=== PATIENT | female | born 1960 | race Caucasian/White ===

== ENCOUNTER 2017-10-29 11:44 | Emergency (ER) | payer OTHER ==
[2017-10-29 12:14] VITALS: BMI 21.9
--- NOTE | 2017-10-29 12:42 | PDOC ---
History of Present Illness - General Chief Complaint: PICC Line Insertion Stated Complaint: FEMORAL ASSESS Time Seen by Provider: 10/29/17 12:09 History Source: EMS, [facility], Primary Care Provider Exam Limitations: Clinical Condition - History of Present Illness Initial Comments: 10/29/17 13:01 57-year-old female with history of generalized seizure disorder, asthma, hypertension, dysphasia, anoxic encephalopathy, brought in from [facility] for placement of a peripheral dialysis catheter at the behest of the vegetable specker. Patient was transferred to [facility] by mistake and does not require emergent dialysis. I spoke with the medical donation professional at [facility] who advised me to discharge the patient upon completion of the medical screening exam where she will be rerouted to [facility] for her care. REVIEW OF SYSTEMS Unable to obtain due to patient's medical condition EXAMINATION CONSTITUTIONAL: Awake and alert, in no distress HEAD: Normocephalic; atraumatic EYES: PERRL; EOM intact ENMT: + Poor dentition NECK: Tracheostomy in place CARD: Normal S1, S2; no murmurs, rubs, or gallops RESP: Normal chest excursion with respiration; breath sounds clear and equal bilaterally; no wheezes, rhonchi, or rales ABD: Soft, non-distended; non-tender; no palpable organomegaly, no palpable hernias NEURO: Awake and alert, follows commands, moving all extremity symmetrically Past History - Past Medical History Anemia: Yes (refractory anemia) Asthma: Yes COPD: Yes GI Disorders: Yes (peg tube) Disorders: Yes (Htn chronic kid dx,renal osteodystrophy) HTN: Yes Psychiatric Problems: Yes (anxiety) Seizures: Yes (epilepsy,essential tremor) Other medical history: nicotine dependence, vit D deficiency - Surgical History GI Surgery: Yes (peg tube) - Suicide/Smoking/Psychosocial Hx Smoking History: Former smoker Have you smoked in the past 12 months: No Information on smoking cessation initiated: No Hx Alcohol Use: No Drug/Substance Use Hx: No *Physical Exam - Vital Signs Last Vital Signs Temp Pulse Resp BP Pulse Ox 97.8 F 85 20 162/83 100 10/29/17 12:08 10/29/17 12:08 10/29/17 12:08 10/29/17 12:08 10/29/17 12:17 *DC/Admit/Observation/Transfer Diagnosis at time of Disposition: Evaluation by medical service required - Discharge Dispostion Disposition: HOME Condition at time of disposition: Stable - Referrals Referrals: Garcia Edmonds MD [Primary Care Provider] - - Patient Instructions Additional Instructions: Follow-up at [facility] for further evaluation and treatment. Return immediately for worsening symptoms. - Post Discharge Activity
[2017-10-29 13:35] VITALS: BP 145/74; PULSE 84; TEMP 98.1
== END 2017-10-29 13:35 ==
LOC: JER 11:44
DX: Z04.8 Encounter for examination and observation for other specified reasons (principal); I10 Essential (primary) hypertension; J45.909 Unspecified asthma, uncomplicated; G40.909 Epilepsy, unspecified, not intractable, without status epilepticus; G93.1 Anoxic brain damage, not elsewhere classified
CPT/HCPCS: 99282-25

== ENCOUNTER 2018-06-23 12:56 | Inpatient (IN) | payer OTHER ==
[2018-06-23 13:14] VITALS: BMI 21.5
[2018-06-23] MEDS ORDERED: ALBUTEROL SO4 2.5/IPRATROPIUM 0.5 INH SOL 3 ML VIAL.NEB. NEB ONE ×2 (13:24→16:13)
--- NOTE | 2018-06-23 13:31 | PDOC ---
History of Present Illness - General Chief Complaint: Dialysis Shunt Problem Stated Complaint: BLOCKED SHUNT Time Seen by Provider: 06/23/18 13:05 History Source: Patient Exam Limitations: Clinical Condition - History of Present Illness Initial Comments: 06/23/18 13:28 58-year-old female with history of generalized seizure disorder, copd, hypertension, CAD, ESRD on HD M, W, F brought in from [facility] for nonfunctioning AV graft on Left arm since Tuesday. Patient states that last HD was done on Tuesday. Denies chest pain, sob, palpitations, lightheadedness, nausea, vomiting, swelling in legs. Reports she has tracheostomy from 2017. Denies fever and chills. Rod Bending Machine Operator: Dr Barton. States fistula made by [facility] access Bx Former smoker REVIEW OF SYSTEMS Unable to obtain due to patient's medical condition 06/23/18 13:32 06/23/18 13:39 Past History - Past Medical History Allergies/Adverse Reactions: Allergies Allergy/AdvReac Type Severity Reaction Status Date / Time codeine Allergy Verified 06/23/18 13:12 diphenhydramine Allergy Verified 06/23/18 13:12 [From Benadryl] heparin Allergy Verified 06/23/18 13:12 Anemia: Yes (refractory anemia) Asthma: Yes COPD: Yes GI Disorders: Yes (peg tube) Disorders: Yes (Htn chronic kid dx,renal osteodystrophy) HTN: Yes Psychiatric Problems: Yes (anxiety) Seizures: Yes (epilepsy,essential tremor) - Surgical History GI Surgery: Yes (peg tube) - Suicide/Smoking/Psychosocial Hx Smoking History: Former smoker Have you smoked in the past 12 months: No Information on smoking cessation initiated: No Hx Alcohol Use: No Drug/Substance Use Hx: No Review of Systems - Review of Systems Constitutional: No: Chills, Fever HEENTM: No: Blurred Vision Respiratory: No: Cough, Shortness of Breath, Stridor, Wheezing Cardiac (ROS): No: Chest Pain, Irregular Heart Rate, Lightheadedness, Palpitations ABD/GI: No: Abdominal Distended, Constipated, Diarrhea, Nausea, Vomiting : No: Burning, Dysuria, Frequency, Hematuria Neurological: No: Headache *Physical Exam - Vital Signs Last Vital Signs Temp Pulse Resp BP Pulse Ox 98.5 F 74 18 142/72 97 06/23/18 13:12 06/23/18 13:12 06/23/18 13:12 06/23/18 13:12 06/23/18 13:12 - Physical Exam General Appearance: Yes: Appropriately Dressed Neck: positive: Other (tracheostomy present, tracheal collar, on oxygen ) Cardiovascular: positive: Regular Rhythm, Regular Rate, S1, S2. negative: Murmur Gastrointestinal/Abdominal: positive: Normal Bowel Sounds, Soft, Other ( dressing present, PEG tube removed about 45 days ago). negative: Tender, Distended, Guarding, Rebound Musculoskeletal: positive: Other (muscle waisting ) Extremity: positive: Other (AV graft present on left arm. No shunt or thrill present. ). negative: Tender Integumentary: positive: Dry Neurologic: positive: Fully Oriented, Alert ED Treatment Course - LABORATORY CBC & Chemistry Diagram: 06/23/18 15:15 - RADIOLOGY Radiology Studies Ordered: Category Date Time Status CXRPORT [CHEST X-RAY PORTABLE*] [RAD] Routine Radiology 06/23/18 13:23 Ordered Medical Decision Making - Medical Decision Making 06/23/18 13:38 58-year-old female with history of generalized seizure disorder, copd, hypertension, CAD, ESRD on HD M, W, F brought in from [facility] for nonfunctioning AV graft on Left arm since Tuesday. Patient states that last HD was done on Tuesday. Denies chest pain, sob, palpitations, lightheadedness, nausea, vomiting, swelling in legs. Reports she has tracheostomy from 2017. Denies fever and chills. Rod Bending Machine Operator: Dr Barton. States fistula made by wallis[facility] access Bx we will get cbc, cmp, ekg, cxr, vascular surgery consult, nephrology consult, pt /inr. One time duoneb for mild wheezing on exam. Pt has h/o copd. Former smoker 06/23/18 13:51 Patient was initially sent to [facility] in morning but they don't accommodate patient on tracheostomy so pt was sent back to [facility]. Now patient is sent from [facility] to [facility]. [place] access [phone].. ekg reviewed: nsr. discussed with Dr antoine. we can admit patient and send dr jung consult. Dr. Jung informed about the patient. 06/23/18 15:19 labs pending inr 1.04. CXR: no fluid overload. Ultrasound or arm done. Report pending 06/23/18 16:25 patient will get procedure in morning for occluded AV graft. Make her NPO after midnight. *DC/Admit/Observation/Transfer Diagnosis at time of Disposition: AV fistula occlusion Qualifiers: Encounter type: initial encounter Qualified Code(s): T82.898A - Other specified complication of vascular prosthetic devices, implants and grafts, initial encounter - Discharge Dispostion Decision to Admit order: Yes - Referrals - Patient Instructions - Post Discharge Activity
--- NOTE | 2018-06-23 14:01 | PDOC ---
Attending Attestation - Resident Resident Name: AshlynFloyd - ED Attending Attestation I have performed the following: I have examined & evaluated the patient, The case was reviewed & discussed with the resident, I agree w/resident's findings & plan, Exceptions are as noted - HPI HPI: 06/23/18 13:58 58-year-old female with generalized seizure disorder, copd, hypertension, CAD, ESRD on HD M, W, F presents with clotted left upper shank fishhook. Patient last had dialysis 4 days ago. 2 days ago, they attempted to dialyze patient but the left upper extremity fistula was clotted. He sent the patient to the ER today to repair it. Patient has no complaints at this time. - Physicial Exam PE: 06/23/18 14:03 GENERAL: Awake, alert, and fully oriented, in no acute distress HEAD: No signs of trauma EYES: EOMI, sclera anicteric, conjunctiva clear ENT: Auricles normal inspection, hearing grossly normal, nares patentl. Trach in place. NECK: Normal ROM, supple LUNGS: Breath sounds equal, clear to auscultation bilaterally. No wheezes, and no crackles HEART: Regular rate and rhythm, normal S1 and S2, no murmurs, rubs or gallops EXTREMITIES: Normal range of motion, no edema. No clubbing or cyanosis. No cords, erythema, or tenderness LUE fistula with no palpable thrill. NEUROLOGICAL: Cranial nerves II through XII grossly intact. SKIN: Warm, Dry, normal turgor, no rashes or lesions noted. - Medical Decision Making 06/23/18 14:05 Vital Signs Temp Pulse Resp BP Pulse Ox 98.5 F 74 18 142/72 97 06/23/18 13:12 06/23/18 13:12 06/23/18 13:12 06/23/18 13:12 06/23/18 13:12 Clotted LUE fistula. Duplex of LUE. Consult vascular. Labs to evaluate for potential hyperkalemia given that she missed dialysis. Admit Heart Score/ECG Review #1 ECG reviewed & interpreted by me at: 14:00 06/23/18 14:06 NSR 69, no std/marcie, normal axis, normal intervals, QTC 458 msec
[2018-06-23 15:10] LABS: INR 1.04 (0.83-1.09); PROTHROMBIN TIME (PATIENT) 11.8 SEC (9.7-13.0)
[2018-06-23 15:12] LABS: ACTIVATED PTT 24.7 SECONDS (25.2-36.5)
[2018-06-23 15:39] LABS: ALK PHOS 167 U/L (45-117); ANION GAP 19 MMOL/L (8-16); BILIRUBIN,TOTAL 0.3 mg/dL (0.2-1.0); CALCIUM 9.2 mg/dL (8.5-10.1); CHLORIDE 92 mmol/L (98-107); CO2 22 mmol/L (21-32); CREATININE 6.9 mg/dL (0.55-1.02); GLUCOSE,RANDOM 88 mg/dL (74-106); MAGNESIUM 2.4 mg/dL (1.8-2.4); PHOSPHOROUS 5.2 mg/dL (2.5-4.9); POTASSIUM 4.5 mmol/L (3.5-5.1); SGOT/AST 12 U/L (15-37); SGPT/ALT 16 U/L (12-78); SODIUM 133 mmol/L (136-145); TOT PROT 6.2 g/dl (6.4-8.2)
[2018-06-23 15:42] LABS: BLOOD UREA NITROGEN 115 mg/dL (7-18)
[2018-06-23 15:43] LABS: INR 1.05 (0.83-1.09); PROTHROMBIN TIME (PATIENT) 11.9 SEC (9.7-13.0)
--- NOTE | 2018-06-23 18:08 | HP ---
Admitting History and Physical - Primary Care Physician PCP: Marleny Ortega - Admission History of Present Illness: 58-year-old female with history of generalized seizure disorder, copd, hypertension, CAD, ESRD on HD M, W, F , s/p trach collor brought in from [facility] for nonfunctioning AV graft on Left arm since Tuesday. Patient states that last HD was done on Tuesday. Denies chest pain, sob, palpitations, lightheadedness, nausea, vomiting, swelling in legs. Reports she has tracheostomy from 2017. Denies fever and chills. It Disaster Recovery Manager: Dr Barton. States fistula made by stateless access Bx avf declotting scheduled tomorrow. pt seen / examined . chart reviewed discussed with er resident npo after midnight Dialysis after procedure pt comfortable History Source: Patient, Medical Record - Smoking History Smoking history: Former smoker Have you smoked in the past 12 months: No - Alcohol/Substance Use Hx Alcohol Use: No Home Medications - Allergies Allergies/Adverse Reactions: Allergies Allergy/AdvReac Type Severity Reaction Status Date / Time codeine Allergy Verified 06/23/18 13:12 diphenhydramine Allergy Verified 06/23/18 13:12 [From Benadryl] heparin Allergy Verified 06/23/18 13:12 Review of Systems Findings/Remarks: see [place] Physical Examination Vital Signs: Vital Signs Temperature 98.5 F 06/23/18 13:12 Pulse Rate 74 06/23/18 13:12 Respiratory Rate 18 06/23/18 13:12 Blood Pressure 142/72 06/23/18 13:12 O2 Sat by Pulse Oximetry (%) 97 06/23/18 13:12 Constitutional: Yes: No Distress, Calm Eyes: Yes: Conjunctiva Clear Neck: Yes: Supple, Other (s/p trach cloolr) Cardiovascular: Yes: Regular Rate and Rhythm Respiratory: Yes: CTA Bilaterally Gastrointestinal: Yes: Soft Edema: No Neurological: Yes: Alert Psychiatric: Yes: Alert Labs: CBC, BMP 06/23/18 15:15 Imaging - Results Chest X-ray: Report Reviewed Problem List - Problems (1) Tracheostomy dependent Code(s): Z93.0 - TRACHEOSTOMY STATUS (2) Seizure disorder Code(s): G40.909 - EPILEPSY, UNSP, NOT INTRACTABLE, WITHOUT STATUS EPILEPTICUS (3) ESRD (end stage renal disease) on dialysis Code(s): N18.6 - END STAGE RENAL DISEASE; Z99.2 - DEPENDENCE ON RENAL DIALYSIS (4) AV fistula occlusion Code(s): T82.898A - OT COMPLICATION OF VASCULAR PROSTH DEV/GRFT, INIT Qualifiers: Encounter type: initial encounter Qualified Code(s): T82.898A - Other specified complication of vascular prosthetic devices, implants and grafts, initial encounter Assessment/Plan Npo after midnight meds reviewed will discuss with vascular medically stable for proposed procedure scd for dvt prophylaxis pt allergic to heparin will follow discussed with nursing staff also.
[2018-06-23 19:00] LABS: BASO % 0.5 % (0-2.0); EOS % 0.2 % (0-4.5); HEMOGLOBIN 13.8 GM/dL (10.7-15.3); LYMPH % 19.1 % (8-40); MCHC 33.6 g/dl (32.0-36.0); MEAN CELL VOLUME 92.1 fl (80-96); MEAN PLT VOLUME 7.5 fl (7.5-11.1); MONO % 6.4 % (3.8-10.2); NEUT % 73.8 % (42.8-82.8); PLATELET COUNT 267 K/MM3 (134-434); RBC 4.45 M/mm3 (3.60-5.2); RDW 16.5 % (11.6-15.6); WHITE BLOOD COUNT 4.6 K/mm3 (4.0-10.0)
--- NOTE | 2018-06-23 19:00 | PN ---
Progress Note (short form) - Note Progress Note: VAscular Surgery Pt seen and examined. Left avg is clotted. Will declot graft in am. Spoke to branden Bach - who will give consent for procedure. Pt can go for HD after procedure. Murali Paz DO
[2018-06-23] MEDS ORDERED: ACETYLCYSTEINE 20% 200MG/ML 30 ML VIAL *FOR ORAL / INH USE ONLY NEB SCH (20:00)
[2018-06-23] MEDS: ALBUTEROL SO4 0.083% IH SOL 2.5 MG/3 ML VIAL.NEB. NEB SCH (21:28)
[2018-06-23] MEDS: SILVER SULFADIAZINE 1% TOP CREAM 50 GM JAR TP SCH (22:08)
[2018-06-23] MEDS: BUDESONIDE/FORMETEROL FUMARATE 160/4.5 mcg INHALER IH SCH (22:08)
[2018-06-23] MEDS: levETIRAcetam 500 MG/5 ML INJECTION VIAL IVPB SCH (22:10)
[2018-06-23] MEDS: PHENYTOIN SODIUM 100 MG/2 ML VIAL IVPB SCH (22:10)
[2018-06-24] MEDS ORDERED: ACETYLCYSTEINE 20% 200MG/ML 4 ML VIAL *FOR ORAL / INH USE ONLY NEB SCH (00:37)
[2018-06-24] MEDS: ALBUTEROL SO4 0.083% IH SOL 2.5 MG/3 ML VIAL.NEB. NEB SCH ×3 (07:30→15:18)
[2018-06-24] MEDS ORDERED: SEVELAMER CARBONATE 2.4 GM POWDER PACKET PO SCH ×2 (08:00→12:00)
[2018-06-24] MEDS ORDERED: LIDOCAINE HCL 1%, 10 MG/ML (20ML VIAL) ONE (08:31)
[2018-06-24] MEDS ORDERED: ONDANSETRON 4 MG/2 ML VIAL IVPUSH PRN ×2 (08:34→10:41)
[2018-06-24] MEDS ORDERED: MIDAZOLAM HCL 2 MG/2 ML SINGLE DOSE VIAL ONE ×3 (08:45→09:40)
[2018-06-24] MEDS ORDERED: PROPOFOL 20 ML ONE ×2 (08:50)
[2018-06-24] MEDS ORDERED: ceFAZolin SODIUM 1 GM VIAL ONE (08:50)
--- NOTE | 2018-06-24 08:56 | CON.NEP ---
Consult Consult Specialty:: nephrology Referred by:: arash Reason for Consultation:: esrd with clotted avg - History of Present Illness Chief Complaint: nonfunctioning dialysis access History of Present Illness: esrd nh resident av access malfunction last hd on tuesday - Alcohol/Substance Use Hx Alcohol Use: No - Smoking History Smoking history: Former smoker Have you smoked in the past 12 months: No Home Medications - Allergies Allergies/Adverse Reactions: Allergies Allergy/AdvReac Type Severity Reaction Status Date / Time codeine Allergy Verified 06/23/18 13:12 diphenhydramine Allergy Verified 06/23/18 13:12 [From Benadryl] heparin Allergy Verified 06/23/18 13:12 Nephrology Consult - Height Height: 5 ft 2 in - Weight Weight: 118 lb - BMI Body Mass Index (BMI): 21.5 - Lab Results CBC,BMP: CBC, BMP 06/23/18 18:00 06/23/18 15:15 Anion Gap: Anion Gap Anion Gap 19 MMOL/L (8-16) H 06/23/18 15:15 - Physical Examination Vital Signs: Vital Signs Temperature 97.6 F 06/24/18 06:00 Pulse Rate 82 06/24/18 07:30 Respiratory Rate 20 06/24/18 06:00 Blood Pressure 140/67 06/24/18 06:00 O2 Sat by Pulse Oximetry (%) 98 06/24/18 07:30 Assessment/Plan esrd on hd tiw mwf admitted with avg clotting last hd on tuesday- clinically no sign of overload or uremia Plan- hd after declotting
[2018-06-24] MEDS ORDERED: SODIUM CHLORIDE 250 ML IV PRN ×2 (09:03→10:41)
[2018-06-24] MEDS ORDERED: hydrALAZINE HCL 50 MG TABLET (FP) PO SCH (10:00)
[2018-06-24] MEDS ORDERED: amLODIPine BESYLATE 10 MG TABLET (FP) PO SCH (10:00)
[2018-06-24] MEDS ORDERED: cloNIDine HCL 0.1 MG TABLET PO SCH (10:00)
--- NOTE | 2018-06-24 10:22 | OP ---
Operative Note - Note: Operative Date: 06/24/18 Pre-Operative Diagnosis: Clotted left avg Operation: venogram,suction thrombectomy, venoplasty left avg Post-Operative Diagnosis: Same as Pre-op Surgeon: Murali Paz Anesthesia: Fractional Estimated Blood Loss (mls): 50 Operative Report Dictated: Yes
[2018-06-24] MEDS: levETIRAcetam 500 MG/5 ML INJECTION VIAL IVPB SCH (10:45)
[2018-06-24] MEDS: PHENYTOIN SODIUM 100 MG/2 ML VIAL IVPB SCH (10:45)
[2018-06-24] MEDS: BUDESONIDE/FORMETEROL FUMARATE 160/4.5 mcg INHALER IH SCH (10:45)
[2018-06-24] MEDS: SILVER SULFADIAZINE 1% TOP CREAM 50 GM JAR TP SCH (10:45)
--- NOTE | 2018-06-24 11:22 | DS ---
Physical Examination Vital Signs: Vital Signs Temperature 98.3 F 06/24/18 10:40 Pulse Rate 76 06/24/18 10:40 Respiratory Rate 18 06/24/18 10:40 Blood Pressure 167/75 06/24/18 10:40 O2 Sat by Pulse Oximetry (%) 100 06/24/18 10:40 Constitutional: Yes: No Distress, Calm Cardiovascular: Yes: Regular Rate and Rhythm Respiratory: Yes: Diminished Gastrointestinal: Yes: Normal Bowel Sounds, Soft. No: Tenderness Edema: No Labs: CBC, BMP 06/23/18 18:00 06/23/18 15:15 Discharge Summary Reason For Visit: AV FISTULA OCCLUSION Current Active Problems AV fistula occlusion (Acute) ESRD (end stage renal disease) on dialysis (Acute) Seizure disorder (Acute) Tracheostomy dependent (Acute) Hospital Course: Admitted for AVF occlusion No volume overload Seen by Renal and Vascular Surgeon-- declotted today and was dialyzed stable for dc to NH Condition: Good - Instructions Disposition: [facility]
[2018-06-24] MEDS: ACETYLCYSTEINE 20% 200MG/ML 4 ML VIAL *FOR ORAL / INH USE ONLY NEB SCH ×2 (11:27→15:17)
[2018-06-24 15:25] VITALS: TEMP 98.4
[2018-06-24 16:12] VITALS: BP 118/70; PULSE 91
[2018-06-24] MEDS ORDERED: PT OWN MED DRAWER 7, Y5N ONE (18:38)
[2018-06-24] MEDS ORDERED: BUDESONIDE/FORMETEROL FUMARATE 160/4.5 mcg INHALER IH SCH (22:00)
[2018-06-24] MEDS ORDERED: PHENYTOIN NA EXTENDED 100 MG CAPSULE (FP) PO SCH (22:00)
[2018-06-24] MEDS ORDERED: PHENYTOIN SODIUM 100 MG/2 ML VIAL IVPB SCH (22:00)
[2018-06-24] MEDS ORDERED: levETIRAcetam 250 MG TABLET (FP) PO SCH (22:00)
[2018-06-24] MEDS ORDERED: levETIRAcetam 500 MG/5 ML INJECTION VIAL IVPB SCH (22:00)
[2018-06-24] MEDS ORDERED: SILVER SULFADIAZINE 1% TOP CREAM 50 GM JAR TP SCH (22:00)
[2018-06-25 08:06] LABS: HBsAG SCREEN Negative (Negative)
[2018-06-25] MEDS ORDERED: amLODIPine BESYLATE 10 MG TABLET (FP) PO SCH (10:00)
[2018-06-25] MEDS ORDERED: cloNIDine HCL 0.1 MG TABLET PO SCH (10:00)
[2018-06-25] MEDS ORDERED: hydrALAZINE HCL 50 MG TABLET (FP) PO SCH (10:00)
--- NOTE | 2018-06-26 11:16 | EKG ---
Test Reason : Blood Pressure : / mmHG Vent. Rate : 069 BPM Atrial Rate : 069 BPM P-R Int : 180 ms QRS Dur : 092 ms QT Int : 428 ms P-R-T Axes : 051 068 046 degrees QTc Int : 458 ms NORMAL SINUS RHYTHM POSSIBLE LEFT ATRIAL ENLARGEMENT BORDERLINE ECG NO PREVIOUS ECGS AVAILABLE Confirmed by MEL ROCHA, NAYAN ([id number]) on 06/26/2018 11:15:51 AM Referred By: Confirmed By:NAYAN LEAL MD
== END 2018-06-24 18:30 | DRG 252 ==
LOC: JER 12:56 → JERBED 16:00 → J5S 17:21
PROVIDERS: ADMIT Internal Medicine; ATTEND Internal Medicine
PROC: B50NYZZ Plain Radiography of Left Upper Extremity Veins using Other Contrast (ICD-10-PCS; 2018-06-24)
PROC: 5A1D70Z Performance of Urinary Filtration, Intermittent, Less than 6 Hours Per Day (ICD-10-PCS; 2018-06-24)
PROC: 05CA3ZZ Extirpation of Matter from Left Brachial Vein, Percutaneous Approach (ICD-10-PCS; principal; 2018-06-24 09:10)
DX: T82.898A Other specified complication of vascular prosthetic devices, implants and grafts, initial encounter (principal); N18.6 End stage renal disease; I12.0 Hypertensive chronic kidney disease with stage 5 chronic kidney disease or end stage renal disease; Z93.0 Tracheostomy status; Y83.9 Surgical procedure, unspecified as the cause of abnormal reaction of the patient, or of later complication, without mention of misadventure at the time of the procedure; Z99.2 Dependence on renal dialysis; I25.10 Atherosclerotic heart disease of native coronary artery without angina pectoris; G40.909 Epilepsy, unspecified, not intractable, without status epilepticus
CPT/HCPCS: 36415; 71045-TC-FY; 76000-TC-FY; 80053; 83735; 84100; 85025; 85610; 85730; 86706; 87340; 93005; 93010; 93971; 94640; 94760; 99281-25; J7620

== ENCOUNTER 2018-07-05 18:50 | Observation (INO) | payer OTHER ==
[2018-07-05 21:10] LABS: BASO % 0.8 % (0-2.0); HEMATOCRIT 37.7 % (32.4-45.2); HEMOGLOBIN 12.6 GM/dL (10.7-15.3); LYMPH % 25.3 % (8-40); MCHC 33.4 g/dl (32.0-36.0); MEAN CELL VOLUME 92.7 fl (80-96); MEAN PLT VOLUME 6.8 fl (7.5-11.1); MONO % 9.8 % (3.8-10.2); NEUT % 62.1 % (42.8-82.8); PLATELET COUNT 267 K/MM3 (134-434); RBC 4.07 M/mm3 (3.60-5.2); RDW 16.5 % (11.6-15.6)
[2018-07-05 21:23] LABS: INR 0.91 (0.83-1.09); PROTHROMBIN TIME (PATIENT) 10.3 SEC (9.7-13.0)
[2018-07-05 21:26] LABS: ACTIVATED PTT 24.3 SECONDS (25.2-36.5)
--- NOTE | 2018-07-05 22:02 | PDOC ---
Attending Attestation - Resident Resident Name: Greyson Jordan - ED Attending Attestation I have performed the following: I have examined & evaluated the patient, The case was reviewed & discussed with the resident, I agree w/resident's findings & plan, Exceptions are as noted - HPI HPI: 07/05/18 23:56 The patient is a 58 year old female, with a significant past medical history of generalized seizure disorder, copd, hypertension, CAD, ESRD (on HD M, W, F), who presents to the emergency department with occluded dialysis fistula. Patient did not receive dialysis today due to the occluded fistula. The patient also has a tracheotomy which was scheduled to be changed today but, did not occur because she is in the ED. While in the ED, she denies symptoms. She denies recent fevers, chills, headache or dizziness. She denies recent nausea, vomit, diarrhea or constipation. She denies recent dysuria, frequency, urgency or hematuria. She denies recent chest pain or shortness of breath. Allergies: Codeine, diphenhydramine, heparin Past surgical history: Fistula made by guatemalan access Bx. Tracheotomy 2017. Social history: Former smoker. Fpga Engineer: Dr Barton. - Physicial Exam PE: 07/05/18 23:57 agree with resident exam - Medical Decision Making 07/05/18 23:57 58yo F with MMP including ESRD presents to the ED with occluded LUE fistula. Pt asymptomatic. Potassium wnl. WIll admit for fistula repair. 07/06/18 00:25 CAse discussed with ALBERT Youngblood, pt accepted for admission Case discussed in detail with admitting physician including history, physical exam and ancillary studies. Admitting physician has assumed care for the patient, will follow all pending diagnostics and will complete the evaluation and treatment. Discharge Disposition - Diagnosis AV fistula occlusion - Discharge Dispostion Condition at time of disposition: Stable Last Admission D/C Date: 06/24/18 Decision to Admit order: Yes - Referrals Referrals: ON STAFF,NOT [Primary Care Provider] - - Patient Instructions - Post Discharge Activity Heart Score/ECG Review #1 07/05/18 22:01 Twelve-lead EKG was performed and reviewed by me. Normal sinus rhythm, rate 80. Normal axis and intervals. No ST elevations. No peak T waves.
[2018-07-05 23:53] LABS: ALBUMIN 2.8 g/dl (3.4-5.0); ALK PHOS 142 U/L (45-117); ANION GAP 8 MMOL/L (8-16); BILIRUBIN,TOTAL 0.3 mg/dL (0.2-1); BLOOD UREA NITROGEN 55 mg/dL (7-18); CALCIUM 9.2 mg/dL (8.5-10.1); CHLORIDE 98 mmol/L (98-107); CO2 26 mmol/L (21-32); CREATININE 6.5 mg/dL (0.55-1.3); GLUCOSE,RANDOM 87 mg/dL (74-106); POTASSIUM 4.7 mmol/L (3.5-5.1); SGOT/AST 13 U/L (15-37); SGPT/ALT 22 U/L (13-61); SODIUM 132 mmol/L (136-145); TOT PROT 5.8 g/dl (6.4-8.2)
--- NOTE | 2018-07-06 00:03 | PDOC ---
History of Present Illness - General Chief Complaint: Dialysis Shunt Problem Stated Complaint: Dialysis Shunt Problem Time Seen by Provider: 07/05/18 18:54 History Source: Patient, Old Records Exam Limitations: No Limitations - History of Present Illness Initial Comments: 58 y/o female presenting to [facility] ER from [facility] complaining of likely occluded dialysis fistula. Site made by [place] Access Bx; unable to evaluate site as the pts trached. Last dialysis run on Tuesday (07/03/2018). Pt is s/p venogram, suction thrombectomy, venoplasty left avg on 06/24/[address] Paz. Pt unable to recall last trach revision. Was scheduled to have it performed today after dialysis. PCP: Marleny Ortega Gelatin Dynamite Packing Operator: Dr Barton. Vascular Surgeon last admission: Dr. Paz Medical Hx: - Generalized seizure disorder - COPD - Hypertension - CAD - ESRD on HD M, W, F brought in from [facility] Surgical Hx: - Tracheostomy 2016 Past History - Past Medical History Allergies/Adverse Reactions: Allergies Allergy/AdvReac Type Severity Reaction Status Date / Time codeine Allergy Verified 07/05/18 19:14 diphenhydramine Allergy Verified 07/05/18 19:14 [From Benadryl] heparin Allergy Verified 07/05/18 19:14 Home Medications: Ambulatory Orders Acetylcysteine Po/INH 20% [Mucomyst 20 Oral / INH Use Only*] 200 mg NEB RQID vial 06/24/18 Albuterol 0.083% Nebulizer Liza [Ventolin 0.083% Nebulizer Soln -] 1 amp NEB RQID amp 06/24/18 Amlodipine Besylate [Norvasc -] 10 mg PO DAILY tablet 06/24/18 Budesonide/Formeterol Fumarate [SYMBICORT 160/4.5mcg -] 2 puff IH BID inhaler 06/24/18 Phenytoin Na Extended [Dilantin -] 200 mg PO BID capsule 06/24/18 Sevelamer Carbonate [Renvela Powder Packet -] 2.4 gm PO TIDCM powd.pack Silver Sulfadiazine 1% Top Cr [Silvadene -] 1 applic TP BID jar 06/24/18 cloNIDine HCL [Catapres -] 0.3 mg PO DAILY tablet 06/24/18 hydrALAZINE HCL [Apresoline -] 50 mg PO DAILY tablet 06/24/18 levETIRAcetam [Keppra -] 250 mg PO BID tablet 06/24/18 Acetaminophen 325 mg PO PRN 07/05/18 Docusate Sodium [Colace] 100 mg PO DAILY 07/05/18 Anemia: Yes (refractory anemia) Asthma: Yes COPD: Yes GI Disorders: Yes (peg tube) Disorders: Yes (Htn chronic kid dx,renal osteodystrophy) HTN: Yes Psychiatric Problems: Yes (anxiety) Seizures: Yes (epilepsy,essential tremor) - Surgical History GI Surgery: Yes (peg tube) - Suicide/Smoking/Psychosocial Hx Smoking History: Never smoked Have you smoked in the past 12 months: No 'Breaking Loose' booklet given: 06/23/18 Hx Alcohol Use: No Drug/Substance Use Hx: No Review of Systems - Review of Systems Able to Perform ROS?: Yes Comments:: In addition to that documented in the HPI above, the additional ROS was obtained : Constitutional: Denies fevers or chills Eyes: Denies vision changes ENMT: Denies sore throat CV: Denies chest pain Resp: Denies SOB GI: Denies vomiting or diarrhea *Physical Exam - Vital Signs Last Vital Signs Temp Pulse Resp BP Pulse Ox 98.8 F 78 18 144/65 100 07/05/18 19:13 07/05/18 19:13 07/05/18 19:13 07/05/18 19:13 07/05/18 19:58 - Physical Exam Comments: Constitutional: Well-developed, well-nourished female in no acute distress. Found semi-fowlers in hospital bed with . Alert and oriented x4. Answered all questions appropriately and completely. Speech was non-labored, non-pressured. HEENT: Normocephalic. No obvious external signs of trauma. Hearing grossly normal. No nasal discharge. Neck is supple, trachea is midline. Trach collar in place and connected to wall oxygen source. Cardiovascular: Regular rate and regular rhythm. No murmur, rubs, clicks, or gallops. Peripheral pulses: Radial pulses full. Respiratory: Breathing unlabored. Equal chest rise and fall. Clear to auscultation bilaterally. No stridor, no wheezing, no rhonchi. Gastrointestinal: abdomen is soft, non-tender, non-distended. Neuro: Alert and oriented. Moving all four extremities spontaneously. Skin: Warm, dry, and intact. Dialysis fistula on upper left extremity. Psych: Affect: appropriate. Mood: normal. ED Treatment Course - LABORATORY CBC & Chemistry Diagram: 07/07/18 06:35 07/07/18 06:35 - ADDITIONAL ORDERS Additional order review: Laboratory Results 07/05/18 07/05/18 07/05/18 23:09 21:07 21:07 PT with INR 10.30 INR 0.91 PTT (Actin FS) 24.3 L Sodium 132 L Cancelled Potassium 4.7 Cancelled Chloride 98 Cancelled Carbon Dioxide 26 Cancelled Anion Gap 8 Cancelled BUN 55 H Cancelled Creatinine 6.5 H Cancelled Creat Clearance w eGFR 6.52 Cancelled Random Glucose 87 Cancelled Calcium 9.2 Cancelled Total Bilirubin 0.3 Cancelled AST 13 L Cancelled ALT 22 Cancelled Alkaline Phosphatase 142 H Cancelled Total Protein 5.8 L Cancelled Albumin 2.8 L Cancelled 07/05/18 21:07 RBC 4.07 MCV 92.7 MCHC 33.4 RDW 16.5 H MPV 6.8 L Neutrophils % 62.1 Lymphocytes % 25.3 D Monocytes % 9.8 Eosinophils % 2.0 D Basophils % 0.8 - RADIOLOGY Radiology Studies Ordered: Category Date Time Status CHEST X-RAY PORTABLE* [RAD] Stat Radiology 07/05/18 20:30 Taken DUPLEX VASCUL US-1 ARM [US] Stat Ultrasound 07/05/18 20:27 Completed Medical Decision Making - Medical Decision Making *Reviewed vital signs, nursing notes, and prior visit documentation (if available). 58 y/o female with likely occluded dialysis fistula without symptomatic complaint. Here for similar 2 weeks ago. Afebrile. Vitals unremarkable. Will order pre-op labs and u/s to evaluate fistula. 21:44 Chemistry hemolyzed. Re-ordered. CBC unremarkable for anemia or leukocytosis. CMP unremarkable for electrolyte derangement. LFTs not elevated. PT/INR within normal range. PTT low to 24.3 U/S revealed occluded AV fistula in the left arm. Attending admitted pt to hospitalist service. Vascular surgeon consult entered into [employer]. *DC/Admit/Observation/Transfer Diagnosis at time of Disposition: AV fistula occlusion Qualifiers: Encounter type: initial encounter Qualified Code(s): T82.898A - Other specified complication of vascular prosthetic devices, implants and grafts, initial encounter - Discharge Dispostion Condition at time of disposition: Stable Decision to Admit order: Yes - Referrals - Patient Instructions - Post Discharge Activity
--- NOTE | 2018-07-06 01:16 | HP ---
CHIEF COMPLAINT: AV fistula Malfunction PCP: Seaming Machine Operator: Dr Barton. HISTORY OF PRESENT ILLNESS: This is a 58 y/o woman from [facility] with a PMHx of Seizure Disorder (on Dilantin, Keppra), ESRD (HD- MWF), HTN, CAD, COPD, Who presents to the ED with an occluded dialysis fistula. Patient did not receive dialysis today due to the occluded fistula. The patient also has a tracheotomy which was scheduled to be changed today but, did not occur because she is in the ED. While in the ED, she denies symptoms. Patient denies recent fevers, chills, headache or dizziness. Patient denies recent chest pain or shortness of breath. Patient denies recent nausea, vomit, diarrhea or constipation. Patient denies recent dysuria, frequency, urgency or hematuria. ER course was notable for: (1) BUN 55 (2) Cr 6.5 (3) Recent Travel: None PAST MEDICAL HISTORY: See HPI PAST SURGICAL HISTORY: AV Fistula (made by [employer]) Tracheotomy 2016 Social History: Smoking: Former Alcohol: None Drugs: None Resides at [facility] Family History: Non-contributory Allergies codeine Allergy (Verified 07/05/18 19:14) diphenhydramine [From Benadryl] Allergy (Verified 07/05/18 19:14) heparin Allergy (Verified 07/05/18 19:14) HOME MEDICATIONS: Home Medications Medication Instructions Recorded Acetylcysteine Po/INH 20% 200 mg NEB RQID vial 06/24/18 [Mucomyst 20 Oral / INH Use Only*] Albuterol 0.083% Nebulizer Liza 1 amp NEB RQID amp 06/24/18 [Ventolin 0.083% Nebulizer Soln -] Amlodipine Besylate [Norvasc -] 10 mg PO DAILY tablet 06/24/18 Budesonide/Formeterol Fumarate 2 puff IH BID inhaler 06/24/18 [SYMBICORT 160/4.5mcg -] Phenytoin Na Extended [Dilantin -] 200 mg PO BID capsule 06/24/18 Sevelamer Carbonate [Renvela 2.4 gm PO TIDCM powd.pack 06/24/18 Powder Packet -] Silver Sulfadiazine 1% Top Cr 1 applic TP BID jar 06/24/18 [Silvadene -] cloNIDine HCL [Catapres -] 0.3 mg PO DAILY tablet 06/24/18 hydrALAZINE HCL [Apresoline -] 50 mg PO DAILY tablet 06/24/18 levETIRAcetam [Keppra -] 250 mg PO BID tablet 06/24/18 Acetaminophen 325 mg PO PRN 07/05/18 Docusate Sodium [Colace] 100 mg PO DAILY 07/05/18 REVIEW OF SYSTEMS CONSTITUTIONAL: Absent: fever, chills, diaphoresis, generalized weakness, malaise, loss of appetite, weight change HEENT: Absent: rhinorrhea, nasal congestion, throat pain, throat swelling, difficulty swallowing, mouth swelling, ear pain, eye pain, visual changes CARDIOVASCULAR: Absent: chest pain, syncope, palpitations, irregular heart rate, lightheadedness , peripheral edema RESPIRATORY: Absent: cough, shortness of breath, dyspnea with exertion, orthopnea, wheezing, stridor, hemoptysis GASTROINTESTINAL: Absent: abdominal pain, abdominal distension, nausea, vomiting, diarrhea, constipation, melena, hematochezia GENITOURINARY: Absent: dysuria, frequency, urgency, hesitancy, hematuria, flank pain, genital pain MUSCULOSKELETAL: Absent: myalgia, arthralgia, joint swelling, back pain, neck pain SKIN: Absent: rash, itching, pallor HEMATOLOGIC/IMMUNOLOGIC: Absent: easy bleeding, easy bruising, lymphadenopathy, frequent infections ENDOCRINE: Absent: unexplained weight gain, unexplained weight loss, heat intolerance, cold intolerance NEUROLOGIC: Absent: headache, focal weakness or paresthesias, dizziness, unsteady gait, seizure, mental status changes, bladder or bowel incontinence PSYCHIATRIC: Absent: anxiety, depression, suicidal or homicidal ideation, hallucinations. PHYSICAL EXAMINATION Vital Signs - 24 hr 07/05/18 07/05/18 19:13 19:58 Temperature 98.8 F Pulse Rate 78 Respiratory 18 Rate Blood Pressure 144/65 O2 Sat by Pulse 100 100 Oximetry (%) GENERAL: Awake, alert, and fully oriented, in no acute distress. HEAD: Normal with no signs of trauma. EYES: Pupils equal, round and reactive to light, extraocular movements intact, sclera anicteric, conjunctiva clear. No lid lag. EARS, NOSE, THROAT: Ears normal, nares patent, oropharynx clear without exudates. Moist mucous membranes. NECK: Normal range of motion, supple without lymphadenopathy, JVD, or masses. Trach with collar LUNGS: Breath sounds equal, clear to auscultation bilaterally. No wheezes, and no crackles. No accessory muscle use. HEART: Regular rate and rhythm, normal S1 and S2 without murmur, rub or gallop. ABDOMEN: Soft, nontender, not distended, normoactive bowel sounds, no guarding, no rebound, no masses. No hepatomegaly or splenomegaly. MUSCULOSKELETAL: Normal range of motion at all joints. No bony deformities or tenderness. No CVA tenderness. UPPER EXTREMITIES: 2+ pulses, warm, well-perfused. No cyanosis. No clubbing. No peripheral edema. LUE- AV Fistula no thrill/bruit LOWER EXTREMITIES: 2+ pulses, warm, well-perfused. No calf tenderness. No peripheral edema. NEUROLOGICAL: Cranial nerves II-XII intact. Gait not observed. PSYCHIATRIC: Cooperative. Good eye contact. Appropriate mood and affect. SKIN: Warm, dry, normal turgor, no rashes or lesions noted, normal capillary refill. Laboratory Results - last 24 hr 07/05/18 07/05/18 07/05/18 21:07 21:07 21:07 WBC 4.0 RBC 4.07 Hgb 12.6 Hct 37.7 MCV 92.7 MCH 31.0 MCHC 33.4 RDW 16.5 H Plt Count 267 MPV 6.8 L Absolute Neuts (auto) 2.5 Neutrophils % 62.1 Lymphocytes % 25.3 D Monocytes % 9.8 Eosinophils % 2.0 D Basophils % 0.8 Nucleated RBC % 0 PT with INR 10.30 INR 0.91 PTT (Actin FS) 24.3 L Sodium Cancelled Potassium Cancelled Chloride Cancelled Carbon Dioxide Cancelled Anion Gap Cancelled BUN Cancelled Creatinine Cancelled Creat Clearance w eGFR Cancelled Random Glucose Cancelled Calcium Cancelled Total Bilirubin Cancelled AST Cancelled ALT Cancelled Alkaline Phosphatase Cancelled Total Protein Cancelled Albumin Cancelled 07/05/18 23:09 WBC RBC Hgb Hct MCV MCH MCHC RDW Plt Count MPV Absolute Neuts (auto) Neutrophils % Lymphocytes % Monocytes % Eosinophils % Basophils % Nucleated RBC % PT with INR INR PTT (Actin FS) Sodium 132 L Potassium 4.7 Chloride 98 Carbon Dioxide 26 Anion Gap 8 BUN 55 H Creatinine 6.5 H Creat Clearance w eGFR 6.52 Random Glucose 87 Calcium 9.2 Total Bilirubin 0.3 AST 13 L ALT 22 Alkaline Phosphatase 142 H Total Protein 5.8 L Albumin 2.8 L ASSESSMENT/PLAN: This is a 58 y/o woman placed in Observation for AV Graft Occlusion, ESRD requires HD for further evaluation of their emergent condition. Plan: FEN - Replete lytes prn - NPO DVT ppx - TEDs - SCDs Code Status: Full Code Dispo: Observation Problem List - Problem (1) AV fistula occlusion Assessment/Plan: - Arterial Duplex of LUE- occluded left arm AV Fistula - Appreciate Vascular consult - NPO - Neurovascular checks - Monitor vitals - CBC, BMP in am Code(s): T82.898A - OTH COMPLICATION OF VASCULAR PROSTH DEV/GRFT, INIT (2) ESRD (end stage renal disease) on dialysis Assessment/Plan: - HD- MWF, last HD was on Tuesday - Appreciate Nephrology consult for HD management Code(s): N18.6 - END STAGE RENAL DISEASE; Z99.2 - DEPENDENCE ON RENAL DIALYSIS (3) Seizure disorder Assessment/Plan: - controlled - continue Dilantin, Keppra - Seizure Precautions - Dilantin level in am Code(s): G40.909 - EPILEPSY, UNSP, NOT INTRACTABLE, WITHOUT STATUS EPILEPTICUS (4) Tracheostomy dependent Assessment/Plan: - Continue trach care - O2 with trach collar - continue home meds - monitor vitals - HOB elevated - Aspiration precautions Code(s): Z93.0 - TRACHEOSTOMY STATUS Visit type - Emergency Visit Emergency Visit: Yes ED Registration Date: 07/05/18 Care time: The patient presented to the Emergency Department on the above date and was hospitalized for further evaluation of their emergent condition. - New Patient This patient is new to me today: Yes Date on this admission: 07/06/18 - Critical Care Critical Care patient: No Hospitalist Screening - Colonoscopy Questionnaire Colonoscopy Questionnaire: Colonoscopy Questionnaire - Patient: 50 - 75 years old and never had a screening colonoscopy: Unknown History of colon or rectal polyps, or CA: Unknown History of IBD, Crohn's disease or UC: Unknown History of abdominal radiation therapy as a child: Unknown - Relative: 1 with colon or rectal CA, or polyps at age 60 or younger: Unknown Colon or rectal CA diagnosed at age 45 or younger: Unknown Multiple relatives with colon or rectal CA: Unknown - Outcome: Screening Result: Negative Screen
[2018-07-06] MEDS ORDERED: PHENYTOIN NA EXTENDED 100 MG CAPSULE (FP) PO ONE (02:48)
[2018-07-06] MEDS ORDERED: levETIRAcetam 250 MG TABLET (FP) PO ONE (02:50)
[2018-07-06] MEDS ORDERED: levETIRAcetam 500 MG TABLET (FP) PO ONE (02:56)
[2018-07-06] MEDS ORDERED: ACETYLCYSTEINE 20% 200MG/ML 4 ML VIAL *FOR ORAL / INH USE ONLY NEB SCH ×2 (08:00→20:00)
[2018-07-06] MEDS: ALBUTEROL SO4 0.083% IH SOL 2.5 MG/3 ML VIAL.NEB. NEB SCH ×3 (08:33→20:19)
[2018-07-06] MEDS: SEVELAMER CARBONATE 2.4 GM POWDER PACKET PO SCH ×3 (09:06→18:18)
--- NOTE | 2018-07-06 09:57 | EKG ---
Test Reason : Blood Pressure : / mmHG Vent. Rate : 080 BPM Atrial Rate : 080 BPM P-R Int : 180 ms QRS Dur : 084 ms QT Int : 398 ms P-R-T Axes : 054 070 071 degrees QTc Int : 459 ms NORMAL SINUS RHYTHM POSSIBLE LEFT ATRIAL ENLARGEMENT BORDERLINE ECG WHEN COMPARED WITH ECG OF 23-JUN-2018 13:54, NO SIGNIFICANT CHANGE WAS FOUND Confirmed by TARA ROCHA, BRANDY ([id number]) on 07/06/2018 9:56:54 AM Referred By: Confirmed By:BRANDY PACHECO MD
[2018-07-06] MEDS ORDERED: cloNIDine HCL 0.1 MG TABLET PO SCH (10:00)
[2018-07-06] MEDS ORDERED: levETIRAcetam 250 MG TABLET (FP) PO SCH (10:00)
[2018-07-06] MEDS ORDERED: hydrALAZINE HCL 50 MG TABLET (FP) PO SCH (10:00)
[2018-07-06] MEDS ORDERED: SILVER SULFADIAZINE 1% TOP CREAM 50 GM JAR TP SCH (10:00)
[2018-07-06] MEDS ORDERED: amLODIPine BESYLATE 10 MG TABLET (FP) PO SCH (10:00)
[2018-07-06] MEDS ORDERED: BUDESONIDE/FORMETEROL FUMARATE 160/4.5 mcg INHALER IH SCH (10:00)
[2018-07-06] MEDS ORDERED: PHENYTOIN NA EXTENDED 100 MG CAPSULE (FP) PO SCH (10:00)
--- NOTE | 2018-07-06 12:26 | PN ---
Progress Note (short form) - Note Progress Note: here for occluded AVF No distress last dialysis was Tuesday no SOB Vital Signs - 24 hr 07/05/18 07/05/18 07/06/18 19:13 19:58 01:07 Temperature 98.8 F 98.7 F Pulse Rate 78 79 Pulse Rate [ Left Radial] Respiratory 18 18 Rate Blood Pressure 144/65 138/86 Blood Pressure [Right Arm] O2 Sat by Pulse 100 100 98 Oximetry (%) 07/06/18 02:35 Temperature 98.5 F Pulse Rate Pulse Rate [ 74 Left Radial] Respiratory 19 Rate Blood Pressure Blood Pressure 136/68 [Right Arm] O2 Sat by Pulse 98 Oximetry (%) Current Medications Generic Name Dose Route Start Last Admin Trade Name Freq PRN Reason Stop Dose Admin Acetylcysteine 200 mg 07/06/18 08:00 Mucomyst 20 Oral / Inh Use Only* NEB RQID TREVA Albuterol Sulfate 1 amp 07/06/18 08:00 07/06/18 12:02 Ventolin 0.083% Nebulizer Soln - NEB 1 amp RQID TREVA Administration Amlodipine Besylate 10 mg 07/06/18 10:00 07/06/18 10:18 Norvasc - PO 10 mg DAILY TREVA Administration Budesonide/Formoterol Fumarate 2 puff 07/06/18 10:00 07/06/18 10:22 Symbicort 160/4.5mcg - IH 2 puff BID TREVA Administration Clonidine 0.1 mg 07/06/18 10:00 07/06/18 10:22 Catapres - PO 0.1 mg DAILY TREVA Administration Hydralazine HCl 50 mg 07/06/18 10:00 07/06/18 10:18 Apresoline - PO Not Given DAILY TREVA Levetiracetam 250 mg 07/06/18 10:00 07/06/18 10:18 Keppra - PO 250 mg BID TREVA Administration Phenytoin Sodium 200 mg 07/06/18 10:00 07/06/18 10:18 Dilantin - PO 200 mg BID TREVA Administration Sevelamer Carbonate 2.4 gm 07/06/18 08:00 07/06/18 09:06 Renvela Powder Packet - PO Not Given TIDCM TREVA Silver Sulfadiazine 1 applic 07/06/18 10:00 07/06/18 10:22 Silvadene - TP 1 applic BID TREVA Administration Laboratory Results - last 24 hr 07/05/18 07/05/18 07/05/18 21:07 21:07 21:07 WBC 4.0 RBC 4.07 Hgb 12.6 Hct 37.7 MCV 92.7 MCH 31.0 MCHC 33.4 RDW 16.5 H Plt Count 267 MPV 6.8 L Absolute Neuts (auto) 2.5 Neutrophils % 62.1 Lymphocytes % 25.3 D Monocytes % 9.8 Eosinophils % 2.0 D Basophils % 0.8 Nucleated RBC % 0 PT with INR 10.30 INR 0.91 PTT (Actin FS) 24.3 L Sodium Cancelled Potassium Cancelled Chloride Cancelled Carbon Dioxide Cancelled Anion Gap Cancelled BUN Cancelled Creatinine Cancelled Creat Clearance w eGFR Cancelled Random Glucose Cancelled Calcium Cancelled Total Bilirubin Cancelled AST Cancelled ALT Cancelled Alkaline Phosphatase Cancelled Total Protein Cancelled Albumin Cancelled 07/05/18 23:09 WBC RBC Hgb Hct MCV MCH MCHC RDW Plt Count MPV Absolute Neuts (auto) Neutrophils % Lymphocytes % Monocytes % Eosinophils % Basophils % Nucleated RBC % PT with INR INR PTT (Actin FS) Sodium 132 L Potassium 4.7 Chloride 98 Carbon Dioxide 26 Anion Gap 8 BUN 55 H Creatinine 6.5 H Creat Clearance w eGFR 6.52 Random Glucose 87 Calcium 9.2 Total Bilirubin 0.3 AST 13 L ALT 22 Alkaline Phosphatase 142 H Total Protein 5.8 L Albumin 2.8 L S1 S2 RRR Trach collar Lungs decreased Abd- soft, NT\ No edema PLAN last dialysis was Tuesday Does not appear to be in volume overload Vascular eval NPO will need to be dialyzed after declotting Problem List - Problems (1) AV fistula occlusion Code(s): T82.898A - OTH COMPLICATION OF VASCULAR PROSTH DEV/GRFT, INIT (2) Dialysis catheter clot or failure Code(s): FIT1440 - (3) ESRD (end stage renal disease) on dialysis Code(s): N18.6 - END STAGE RENAL DISEASE; Z99.2 - DEPENDENCE ON RENAL DIALYSIS
[2018-07-06] MEDS ORDERED: ONDANSETRON 4 MG/2 ML VIAL IVPUSH PRN ×2 (13:45→16:56)
[2018-07-06] MEDS ORDERED: PROMETHAZINE HCL 25 MG/1 ML VIAL IVPUSH PRN ×2 (13:45→16:56)
[2018-07-06] MEDS ORDERED: SODIUM CHLORIDE 1,000 ML IV SCH (13:45)
[2018-07-06] MEDS ORDERED: HEPARIN NA (PORCINE) 5,000 UNITS/ML 1ML VIAL ONE (14:43)
[2018-07-06] MEDS ORDERED: MIDAZOLAM HCL 2 MG/2 ML SINGLE DOSE VIAL ONE ×2 (15:00→15:16)
[2018-07-06] MEDS ORDERED: ceFAZolin SODIUM 1 GM VIAL IVPB ONE (15:15)
[2018-07-06] MEDS ORDERED: ceFAZolin SODIUM 1 GM VIAL ONE (15:15)
[2018-07-06] MEDS ORDERED: LIDOCAINE HCL 0.5%, 5 MG/ML (50mL SDVIAL) PNB ONE (15:20)
[2018-07-06] MEDS ORDERED: PROPOFOL 20 ML ONE (15:28)
--- NOTE | 2018-07-06 16:17 | OP ---
Operative Note - Note: Operative Date: 07/06/18 Pre-Operative Diagnosis: clotted left avg Operation: venogram, suction thrombectomy , venoplasty left avg Post-Operative Diagnosis: Same as Pre-op Surgeon: Murali Paz Anesthesia: Fractional Estimated Blood Loss (mls): 50 Operative Report Dictated: Yes
[2018-07-06] MEDS: SODIUM CHLORIDE 1,000 ML IV SCH (18:18)
[2018-07-06] MEDS ORDERED: ACETAMINOPHEN 500 MG TABLET (FP) PO ONE (18:26)
[2018-07-06] MEDS ORDERED: PT OWN MED DRAWER 7, Y5N ONE (21:16)
[2018-07-06] MEDS: levETIRAcetam 250 MG TABLET (FP) PO SCH (21:43)
[2018-07-06] MEDS: BUDESONIDE/FORMETEROL FUMARATE 160/4.5 mcg INHALER IH SCH (21:43)
[2018-07-06] MEDS: PHENYTOIN NA EXTENDED 100 MG CAPSULE (FP) PO SCH (21:44)
[2018-07-06] MEDS: SILVER SULFADIAZINE 1% TOP CREAM 50 GM JAR TP SCH (21:44)
[2018-07-07] MEDS ORDERED: ACETAMINOPHEN 325 MG TABLET (FP) PO PRN (00:55)
[2018-07-07] MEDS: SODIUM CHLORIDE 1,000 ML IV SCH (06:14)
[2018-07-07 07:20] LABS: BASO % 0.7 % (0-2.0); EOS % 2.7 % (0-4.5); HEMATOCRIT 34.2 % (32.4-45.2); HEMOGLOBIN 11.3 GM/dL (10.7-15.3); MCH 30.5 pg (25.7-33.7); MCHC 32.9 g/dl (32.0-36.0); MEAN CELL VOLUME 92.6 fl (80-96); MEAN PLT VOLUME 6.6 fl (7.5-11.1); MONO % 9.5 % (3.8-10.2); NEUT % 60.1 % (42.8-82.8); PLATELET COUNT 256 K/MM3 (134-434); RDW 15.9 % (11.6-15.6); WHITE BLOOD COUNT 3.7 K/mm3 (4.0-10.0)
[2018-07-07] MEDS: ALBUTEROL SO4 0.083% IH SOL 2.5 MG/3 ML VIAL.NEB. NEB SCH ×3 (07:35→17:00)
[2018-07-07 07:48] LABS: ANION GAP 12 MMOL/L (8-16); BLOOD UREA NITROGEN 64 mg/dL (7-18); CALCIUM 9.2 mg/dL (8.5-10.1); CHLORIDE 101 mmol/L (98-107); CO2 21 mmol/L (21-32); GLUCOSE,RANDOM 86 mg/dL (74-106); POTASSIUM 4.7 mmol/L (3.5-5.1); SODIUM 134 mmol/L (136-145)
[2018-07-07] MEDS: SEVELAMER CARBONATE 2.4 GM POWDER PACKET PO SCH ×3 (08:52→17:35)
[2018-07-07] MEDS ORDERED: SODIUM CHLORIDE 250 ML IV PRN (09:19)
[2018-07-07] MEDS: BUDESONIDE/FORMETEROL FUMARATE 160/4.5 mcg INHALER IH SCH (09:51)
[2018-07-07] MEDS: levETIRAcetam 250 MG TABLET (FP) PO SCH (09:51)
[2018-07-07] MEDS: PHENYTOIN NA EXTENDED 100 MG CAPSULE (FP) PO SCH (09:51)
[2018-07-07] MEDS: SILVER SULFADIAZINE 1% TOP CREAM 50 GM JAR TP SCH (09:51)
[2018-07-07] MEDS ORDERED: cloNIDine HCL 0.1 MG TABLET PO SCH (10:00)
[2018-07-07] MEDS ORDERED: amLODIPine BESYLATE 10 MG TABLET (FP) PO SCH (10:00)
[2018-07-07] MEDS ORDERED: hydrALAZINE HCL 50 MG TABLET (FP) PO SCH (10:00)
--- NOTE | 2018-07-07 10:49 | DS ---
Physical Examination Vital Signs: Vital Signs Temperature 98.4 F 07/07/18 09:00 Pulse Rate 67 07/07/18 09:00 Respiratory Rate 20 07/07/18 09:00 Blood Pressure 124/86 07/07/18 09:00 O2 Sat by Pulse Oximetry (%) 100 07/07/18 01:00 Findings/Remarks: comfortable no complains chart reviewed Constitutional: Yes: No Distress, Calm Neck: Yes: Supple Cardiovascular: Yes: Regular Rate and Rhythm Respiratory: Yes: CTA Bilaterally Gastrointestinal: Yes: Soft Edema: No Neurological: Yes: Alert Psychiatric: Yes: Alert Labs: CBC, BMP 07/07/18 06:35 07/07/18 06:35 Discharge Summary Reason For Visit: ARTERIOVENOUUS FISTULA OCCLUSION Current Active Problems AV fistula occlusion (Acute) Dialysis catheter clot or failure (Acute) Hospital Course: Stable for avf declotting today -- then dialysis if no issues - discharge after meds reviewed/ reconcilled discussed with nursing staff Condition: Stable - Instructions Referrals: ON STAFF,NOT [Primary Care Provider] - Disposition: [facility] - Home Medications Comprehensive Discharge Medication List: Ambulatory Orders Acetylcysteine Po/INH 20% [Mucomyst 20 Oral / INH Use Only*] 200 mg NEB RQID vial 06/24/18 Albuterol 0.083% Nebulizer Liza [Ventolin 0.083% Nebulizer Soln -] 1 amp NEB RQID amp 06/24/18 Amlodipine Besylate [Norvasc -] 10 mg PO DAILY tablet 06/24/18 Budesonide/Formeterol Fumarate [SYMBICORT 160/4.5mcg -] 2 puff IH BID inhaler 06/24/18 Phenytoin Na Extended [Dilantin -] 200 mg PO BID capsule 06/24/18 Sevelamer Carbonate [Renvela Powder Packet -] 2.4 gm PO TIDCM powd.pack Silver Sulfadiazine 1% Top Cr [Silvadene -] 1 applic TP BID jar 06/24/18 cloNIDine HCL [Catapres -] 0.3 mg PO DAILY tablet 06/24/18 hydrALAZINE HCL [Apresoline -] 50 mg PO DAILY tablet 06/24/18 levETIRAcetam [Keppra -] 250 mg PO BID tablet 06/24/18 Acetaminophen 325 mg PO PRN 07/05/18 Docusate Sodium [Colace] 100 mg PO DAILY 07/05/18
[2018-07-07 15:27] VITALS: TEMP 98.9
--- NOTE | 2018-07-07 15:36 | CONSULT ---
Consult Consult Specialty:: Nephrology Reason for Consultation:: ESRD - History of Present Illness Chief Complaint: clotted AV graft History of Present Illness: Pt is a 58 year old female with pmhx of ESRD, COPD, epilepsy, chronic resp fail , CAD, and HTN who presents to the ER with a clotted AV graft. She was last dialyzed on Tuesday. She had a thrombectomy yesterday. I was called to see her today. She is tolerating HD. She has no complaints. She wants to go back to rehab after HD. She gets her HD at [facility]. 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 Cardio/Vascular: Yes: HTN, Hyperlipdemia Renal/: Yes: Renal Failure, Hemodialysis - Past Surgical History Past Surgical History: Yes: AV Fistula/Graft - Alcohol/Substance Use Hx Alcohol Use: No - Smoking History Smoking history: Former smoker Have you smoked in the past 12 months: No Home Medications - Allergies Allergies/Adverse Reactions: Allergies Allergy/AdvReac Type Severity Reaction Status Date / Time codeine Allergy Verified 07/05/18 19:14 diphenhydramine Allergy Verified 07/05/18 19:14 [From Benadryl] heparin Allergy Verified 07/05/18 19:14 - Home Medications Home Medications: Ambulatory Orders Acetylcysteine Po/INH 20% [Mucomyst 20 Oral / INH Use Only*] 200 mg NEB RQID vial 06/24/18 Albuterol 0.083% Nebulizer Liza [Ventolin 0.083% Nebulizer Soln -] 1 amp NEB RQID amp 06/24/18 Amlodipine Besylate [Norvasc -] 10 mg PO DAILY tablet 06/24/18 Budesonide/Formeterol Fumarate [SYMBICORT 160/4.5mcg -] 2 puff IH BID inhaler 06/24/18 Phenytoin Na Extended [Dilantin -] 200 mg PO BID capsule 06/24/18 Sevelamer Carbonate [Renvela Powder Packet -] 2.4 gm PO TIDCM powd.pack Silver Sulfadiazine 1% Top Cr [Silvadene -] 1 applic TP BID jar 06/24/18 cloNIDine HCL [Catapres -] 0.3 mg PO DAILY tablet 06/24/18 hydrALAZINE HCL [Apresoline -] 50 mg PO DAILY tablet 06/24/18 levETIRAcetam [Keppra -] 250 mg PO BID tablet 06/24/18 Acetaminophen 325 mg PO PRN 07/05/18 Docusate Sodium [Colace] 100 mg PO DAILY 07/05/18 Family Disease History - Family Disease History Family History: Denies Review of Systems - Review of Systems Constitutional: reports: No Symptoms Eyes: reports: No Symptoms HENT: reports: No Symptoms Neck: reports: No Symptoms Respiratory: reports: Other (trache) Genitourinary: reports: Incontinence Musculoskeletal: reports: Muscle Weakness Neurological: reports: No Symptoms Endocrine: reports: No Symptoms Hematology/Lymphatic: reports: No Symptoms Physical Exam Vital Signs: Vital Signs Temperature 98.9 F 07/07/18 15:26 Pulse Rate 95 H 07/07/18 15:26 Respiratory Rate 18 07/07/18 15:26 Blood Pressure 149/73 07/07/18 15:26 O2 Sat by Pulse Oximetry (%) 100 07/07/18 01:00 Constitutional: Yes: Calm Eyes: Yes: Conjunctiva Clear Neck: Yes: Other (trache) Cardiovascular: Yes: S1, S2 Respiratory: Yes: Other (bilateral air entry) Gastrointestinal: Yes: Soft Renal/: Yes: Incontinence Edema: No Neurological: Yes: Oriented Psychiatric: Yes: Oriented Labs: CBC, BMP 07/07/18 06:35 07/07/18 06:35 Laboratory Tests 07/05/18 07/05/18 07/07/18 21:07 23:09 06:35 Hgb 12.6 11.3 Sodium Potassium BUN 55 H Creatinine 6.5 H 07/07/18 06:35 Hgb Sodium 134 L Potassium 4.7 BUN 64 H Creatinine 7.0 H Imaging - Results Chest X-ray: Report Reviewed Problem List - Problems (1) AV fistula occlusion Code(s): T82.898A - OTH COMPLICATION OF VASCULAR PROSTH DEV/GRFT, INIT (2) ESRD (end stage renal disease) on dialysis Code(s): N18.6 - END STAGE RENAL DISEASE; Z99.2 - DEPENDENCE ON RENAL DIALYSIS (3) Seizure disorder Code(s): G40.909 - EPILEPSY, UNSP, NOT INTRACTABLE, WITHOUT STATUS EPILEPTICUS (4) Tracheostomy dependent Code(s): Z93.0 - TRACHEOSTOMY STATUS Assessment/Plan Current Medications Generic Name Dose Route Start Last Admin Trade Name Freq PRN Reason Stop Dose Admin Acetaminophen 650 mg 07/07/18 00:55 07/07/18 02:17 Tylenol - PO 650 mg Q6H PRN Administration PAIN LEVEL 7 - 10 Acetylcysteine 200 mg 07/06/18 20:00 Mucomyst 20 Oral / Inh Use Only* NEB RQID TREVA Albuterol Sulfate 1 amp 07/06/18 20:00 07/07/18 12:16 Ventolin 0.083% Nebulizer Soln - NEB 1 amp RQID TREVA Administration Amlodipine Besylate 10 mg 07/07/18 10:00 07/07/18 09:51 Norvasc - PO 10 mg DAILY TREVA Administration Budesonide/Formoterol Fumarate 2 puff 07/06/18 22:00 07/07/18 09:51 Symbicort 160/4.5mcg - IH 2 inh BID TREVA Administration Clonidine 0.1 mg 07/07/18 10:00 07/07/18 09:51 Catapres - PO 0.1 mg DAILY TREVA Administration Hydralazine HCl 50 mg 07/07/18 10:00 07/07/18 09:51 Apresoline - PO 50 mg DAILY TREVA Administration Sodium Chloride 1,000 mls @ 42 mls/hr 07/06/18 16:56 07/07/18 06:14 Normal Saline - IV 42 mls/hr ASDIR TREVA Administration Sodium Chloride 250 mls @ 3,000 mls/hr 07/07/18 09:19 Normal Saline - IV 07/08/18 09:19 PRN PRN Hypotension during Dialysis Levetiracetam 250 mg 07/06/18 22:00 07/07/18 09:51 Keppra - PO 250 mg BID TREVA Administration Phenytoin Sodium 200 mg 07/06/18 22:00 07/07/18 09:51 Dilantin - PO 200 mg BID TREVA Administration Sevelamer Carbonate 2.4 gm 07/06/18 17:30 07/07/18 12:53 Renvela Powder Packet - PO 2.4 gm TIDCM TREVA Administration Silver Sulfadiazine 1 applic 07/06/18 22:00 07/07/18 09:51 Silvadene - TP 1 applic BID TREVA Administration Impression 1. ESRD 2. occluded graft 3. epilepsy 4. chronic resp failure on trache 5. HTN Plan - HD today - graft repaired - pt has a heparin allergy - discussed with form block maker from HD - will follow while in hospital
[2018-07-07 16:21] VITALS: BP 117/52; PULSE 67
--- NOTE | 2018-09-12 23:22 | OP ---
DATE OF OPERATION: 07/06/2018 PREOPERATIVE DIAGNOSIS: Clotted left arteriovenous graft. POSTOPERATIVE DIAGNOSIS: Clotted left arteriovenous graft. PROCEDURE: Venogram suction thrombectomy venoplasty left arteriovenous graft. SURGEON: Murali Thorpe M.D. ANESTHESIA: Fractional. BLOOD LOSS: 50 mL. INDICATION: The patient is a 58-year-old female that comes in with a clotted left AV graft. She was sent over by the dialysis unit, came into the ER. Patient was then brought to the OR holding. Patient was consented for the procedure, understanding all risks, benefits, and alternatives, and the patient was then brought to the operating room. DESCRIPTION OF PROCEDURE: Once in the operating room, she was laid on the operating table in a supine manner, and the area of the left arm are prepped and draped in a sterile surgical manner. We then went ahead and injected 2 mL of lidocaine 1% at the proximal AV graft. We then used our Micropuncture needle and punctured the AV graft. A Micropuncture wire was inserted, and a short 6-Cuban sheath was inserted. Venogram was then performed by hand injection showing that the graft was clotted. We then placed a 0.035 floppy guidewire up into the central veins. We then used AV suction atherectomy catheter and performed suction atherectomy of the entire graft in the outflow veins all the way into the central vein. Completion venogram now showed that the graft was patent, but there was a severe stenosis in the outflow vein in the venous anastomosis. We then went ahead and administered 3000 units of IV heparin to the patient. We did not give the patient any heparin because the patient had a HEPARIN allergy. We then went ahead and used an 8 x 8 Durata balloon and performed venoplasty of the outflow vein and the entire AV graft. We then went ahead and injected 10 mL lidocaine 1% at the distal AV graft. We used our micropuncture needle and punctured the AV graft, and a short 6 Cuban sheath was placed facing toward the arterial anastomosis. We placed a 0.035 floppy guidewire into the proximal AV graft into the brachial artery. We then used our AV suction atherectomy catheter and performed suction atherectomy of the entire proximal AV graft. We then used a 6 x 6 Durata balloon and performed venoplasty of the arterial anastomosis in the proximal AV graft, and there was now a good thrill in our AV graft. We then performed a completion venogram by hand injection showing that the graft was patent, the outflow all the way into the chest. We then went ahead and used 4-0 Biosyn and a [id number] stitch was placed around each sheath, and the sheaths were pulled. Area was then dried. Dermabond was placed. Patient tolerated the procedure without complications. Patient was transferred to PACU in stable condition. Total blood loss 50 mL. MURALI THORPE DO [id number]
== END 2018-07-07 18:55 ==
LOC: JER 18:50 → JERBED 07-06 00:26 → UNDOADMOB 07-06 01:07 → JERBED 07-06 01:07 → J6S 07-06 04:18
PROVIDERS: ADMIT Internal Medicine; ATTEND Internal Medicine
PROC: 3E03329 Introduction of Other Anti-infective into Peripheral Vein, Percutaneous Approach (ICD-10-PCS; 2018-07-06)
PROC: 3E0337Z Introduction of Electrolytic and Water Balance Substance into Peripheral Vein, Percutaneous Approach (ICD-10-PCS; 2018-07-06)
PROC: 3E0F7GC Introduction of Other Therapeutic Substance into Respiratory Tract, Via Natural or Artificial Opening (ICD-10-PCS; 2018-07-06)
PROC: 05CY3ZZ Extirpation of Matter from Upper Vein, Percutaneous Approach (ICD-10-PCS; principal; 2018-07-06 13:30)
DX: T82.898A Other specified complication of vascular prosthetic devices, implants and grafts, initial encounter (principal); I12.0 Hypertensive chronic kidney disease with stage 5 chronic kidney disease or end stage renal disease; N18.6 End stage renal disease; Z99.2 Dependence on renal dialysis; G40.909 Epilepsy, unspecified, not intractable, without status epilepticus; J44.9 Chronic obstructive pulmonary disease, unspecified; I25.10 Atherosclerotic heart disease of native coronary artery without angina pectoris; D64.9 Anemia, unspecified; F41.9 Anxiety disorder, unspecified; Z93.0 Tracheostomy status; Z88.6 Allergy status to analgesic agent; Z88.8 Allergy status to other drugs, medicaments and biological substances; Y83.9 Surgical procedure, unspecified as the cause of abnormal reaction of the patient, or of later complication, without mention of misadventure at the time of the procedure; Y82.8 Other medical devices associated with adverse incidents; Y92.9 Unspecified place or not applicable
CPT/HCPCS: 36415; 71045-TC-FY; 76000-TC-FY; 80048; 80053; 85025; 85610; 85730; 86704; 86706; 86708; 86803; 87340; 93005; 93010; 93971; 94640; 94760; 96374; 97161-GP; 99285-25; G0378; J0735; J1644; J7030

== ENCOUNTER 2018-08-07 15:18 | Observation (INO) | payer OTHER ==
[2018-08-07 15:39] VITALS: BMI 27.8
--- NOTE | 2018-08-07 15:46 | PDOC ---
History of Present Illness <Angy Finnegan - Last Filed: 08/07/18 16:52> - History of Present Illness Initial Comments: 08/07/18 15:46 Ms. Mi is a 58 yo female w/ pmh of seizure disorder, asthma, HTN, dysphasia , ESRD (M/W/F dialysis) who presents as dialysis unsuccessful today 2/2 likely clotted fistula. Patient last dialysis on Tuesday. Patient currently has no other complaints. Patient noted to have similar presentation requiring venogram , suction thrombectomy, venoplasty left avg 07/[address] Paz. The patient denies chest pain, shortness of breath, headache and dizziness. Denies fever, chills, nausea, vomit, diarrhea and constipation. Denies dysuria, frequency, urgency and hematuria. <Sarabjit Kothari - Last Filed: 08/07/18 18:59> - General Chief Complaint: Dialysis Shunt Problem Stated Complaint: CLOGGED PORT Time Seen by Provider: 08/07/18 15:46 Past History <Angy Finnegan - Last Filed: 08/07/18 16:52> - Past Medical History Anemia: Yes (refractory anemia) Asthma: Yes COPD: Yes CHF: Yes GI Disorders: Yes (peg tube) Disorders: Yes (Htn chronic kid dx,renal osteodystrophy) HTN: Yes Psychiatric Problems: Yes (anxiety) Seizures: Yes (epilepsy,essential tremor) - Surgical History GI Surgery: Yes (peg tube) - Suicide/Smoking/Psychosocial Hx Smoking History: Never smoked Have you smoked in the past 12 months: No 'Breaking Loose' booklet given: 06/23/18 Hx Alcohol Use: No Drug/Substance Use Hx: No <Sarabjit Kothari - Last Filed: 08/07/18 18:59> - Past Medical History Allergies/Adverse Reactions: Allergies Allergy/AdvReac Type Severity Reaction Status Date / Time codeine Allergy Verified 07/05/18 19:14 diphenhydramine Allergy Verified 07/05/18 19:14 [From Benadryl] heparin Allergy Verified 07/05/18 19:14 Home Medications: Ambulatory Orders Acetylcysteine Po/INH 20% [Mucomyst 20 Oral / INH Use Only*] 200 mg NEB RQID vial 06/24/18 Albuterol 0.083% Nebulizer Liza [Ventolin 0.083% Nebulizer Soln -] 1 amp NEB RQID amp 06/24/18 Amlodipine Besylate [Norvasc -] 10 mg PO DAILY tablet 06/24/18 Budesonide/Formeterol Fumarate [SYMBICORT 160/4.5mcg -] 2 puff IH BID inhaler 06/24/18 Phenytoin Na Extended [Dilantin -] 200 mg PO BID capsule 06/24/18 Sevelamer Carbonate [Renvela Powder Packet -] 2.4 gm PO TIDCM powd.pack Silver Sulfadiazine 1% Top Cr [Silvadene -] 1 applic TP BID jar 06/24/18 cloNIDine HCL [Catapres -] 0.3 mg PO DAILY tablet 06/24/18 hydrALAZINE HCL [Apresoline -] 50 mg PO DAILY tablet 06/24/18 levETIRAcetam [Keppra -] 250 mg PO BID tablet 06/24/18 Acetaminophen 325 mg PO PRN 07/05/18 Docusate Sodium [Colace] 100 mg PO DAILY 07/05/18 Darbepoetin Raymond in Polysorbat [Aranesp] 40 mcg IJ MONTHLY 08/07/18 Iron Sucrose Complex [Venofer] 50 mg IV WEEKLY 08/07/18 Mirtazapine [Remeron -] 30 mg PO DAILY 08/07/18 Sennosides [Senna] 8.6 mg PO HS 08/07/18 Review of Systems - Review of Systems Comments:: 08/07/18 15:47 GENERAL/CONSTITUTIONAL: No fever or chills. No weakness. HEAD, EYES, EARS, NOSE AND THROAT: No change in vision. No ear pain or discharge. No sore throat. CARDIOVASCULAR: No chest pain or shortness of breath RESPIRATORY: No cough, wheezing, or hemoptysis. GASTROINTESTINAL: No nausea, vomiting, diarrhea or constipation. GENITOURINARY: No dysuria, frequency, or change in urination. MUSCULOSKELETAL: No joint or muscle swelling or pain. No neck or back pain. SKIN: No rash NEUROLOGIC: No headache, vertigo, loss of consciousness, or change in strength/ sensation. ENDOCRINE: No increased thirst. No abnormal weight change HEMATOLOGIC/LYMPHATIC: No anemia, easy bleeding, or history of blood clots. ALLERGIC/IMMUNOLOGIC: No hives or skin allergy. <Sarabjit Kothari - Last Filed: 08/07/18 18:59> *Physical Exam - Vital Signs Last Vital Signs Temp Pulse Resp BP Pulse Ox 64 20 137/58 L 100 08/07/18 15:36 08/07/18 15:36 08/07/18 15:36 08/07/18 15:36 <Angy Finnegan - Last Filed: 08/07/18 16:52> - Vital Signs Last Vital Signs Temp Pulse Resp BP Pulse Ox 64 20 137/58 L 100 08/07/18 15:36 08/07/18 15:36 08/07/18 15:36 08/07/18 15:36 - Physical Exam Comments: 08/07/18 15:47 GENERAL: Awake, alert, and fully oriented, in no acute distress HEAD: No signs of trauma, normocephalic, atraumatic EYES: PERRLA, EOMI, sclera anicteric, conjunctiva clear ENT: Auricles normal inspection, hearing grossly normal, nares patent, oropharynx clear without exudates. Moist mucosa NECK: Normal ROM, supple, no lymphadenopathy, JVD, or masses LUNGS: No distress, speaks full sentences, clear to auscultation bilaterally HEART: Regular rate and rhythm, normal S1 and S2, no murmurs, rubs or gallops, peripheral pulses normal and equal bilaterally. ABDOMEN: Soft, nontender, normoactive bowel sounds. No guarding, no rebound. No masses EXTREMITIES: +No bruit or thrill appreciable to LUE. Otherwise normal inspection , Normal range of motion, no edema. No clubbing or cyanosis. NEUROLOGICAL: Cranial nerves II through XII grossly intact. Normal speech, normal gait, no focal sensorimotor deficits SKIN: Warm, Dry, normal turgor, no rashes or lesions noted. <Sarabjit Kothari - Last Filed: 08/07/18 18:59> ED Treatment Course - Consult/PCP Time Called: 16:09 (Paged Dr. Paz - vascular) - Additional Consults Time Called: 16:38 (repaged Dr. Paz (2nd time)) <Angy Finnegan - Last Filed: 08/07/18 16:52> - LABORATORY CBC & Chemistry Diagram: 08/07/18 16:50 08/07/18 16:50 <Sarabjit Kothari - Last Filed: 08/07/18 18:59> Medical Decision Making - Medical Decision Making 08/07/18 18:13 Ms. Mi is a 58 yo female w/ pmh as described who presents for evaluation s/ p dialysis failure earlier today. Patient currently resting comfortably however will need dialysis urgently. Discussed with Vascular (Dr. Paz). US ordered for further evaluation will be done in morning. Patient given insulin, glucose, kayexalate, and sodium bicarb for hyperkalermia. Will admit patient for further care to inpatient team. Laboratory Results - last 24 hr 08/07/18 08/07/18 16:50 16:50 WBC 7.8 RBC 2.48 L Hgb 7.6 L Hct 22.9 L D MCV 92.4 MCH 30.7 MCHC 33.2 RDW 15.6 Plt Count 275 MPV 7.1 L Absolute Neuts (auto) 6.1 Neutrophils % 78.2 D Lymphocytes % 13.9 D Monocytes % 5.4 Eosinophils % 1.9 Basophils % 0.6 Nucleated RBC % 0 Sodium 136 Potassium 6.8 H* Chloride 101 Carbon Dioxide 22 Anion Gap 12 BUN 107 H* Creatinine 7.1 H Creat Clearance w eGFR 5.89 Random Glucose 91 Calcium 8.6 Total Bilirubin 0.4 AST 11 L ALT 29 Alkaline Phosphatase 128 H Total Protein 6.0 L Albumin 2.7 L 08/07/18 18:27 Patient signed out to Dr. Duenas for further care. <Sarabjit Kothari - Last Filed: 08/07/18 18:59> *DC/Admit/Observation/Transfer <Angy Finnegan - Last Filed: 08/07/18 16:52> - Discharge Dispostion Decision to Admit order: Yes <Sarabjit Kothari - Last Filed: 08/07/18 18:59> Diagnosis at time of Disposition: Dialysis catheter clot or failure
--- NOTE | 2018-08-07 16:36 | PDOC ---
Attending Attestation - HPI HPI: This patient is a 58 year old female with PMHx of seizure disorder, asthma, HTN , dysphasia, ESRD (M/W/F dialysis) who was BIBA from dialysis for clotted fistula. Patient last dialysed on Tuesday. Patient went to dialysis today but was unable to be dialyzed. Patient states that this issue has happened to her before. Patient currently has no other complaints. - Physicial Exam PE: GENERAL: Awake, alert, and fully oriented, in no acute distress HEAD: No signs of trauma EYES: PERRLA, EOMI, sclera anicteric, conjunctiva clear ENT: trach tube- clean,dry, intact. EXTREMITIES: Left UE fistula, no palpable thrill. Normal range of motion, no edema. No clubbing or cyanosis. No cords, erythema, or tenderness NEUROLOGICAL: Cranial nerves II through XII grossly intact. SKIN: Warm, Dry, normal turgor, no rashes or lesions noted. <Angy Finnegan - Last Filed: 08/07/18 16:37> - Resident Resident Name: Sarabjit Kothari - ED Attending Attestation I have performed the following: I have examined & evaluated the patient, The case was reviewed & discussed with the resident, I agree w/resident's findings & plan, Exceptions are as noted - Medical Decision Making 08/07/18 16:35 A portion of this note was documented by scribe services under my direction. I have reviewed the details of the note, within reason, and agree with the documentation with the following case summary and management plan written by me. Patient treated in the ED. Nursing notes are reviewed and incorporated into the medical decision-making. Vital signs reviewed. Peripheral IV access obtained by the nurse, laboratory studies are drawn and sent, reviewed and interpreted by myself. Vital Signs Temp Pulse Resp BP Pulse Ox 64 20 137/58 L 100 08/07/18 15:36 08/07/18 15:36 08/07/18 15:36 08/07/18 15:36 58-year-old female history of seizure disorder, asthma, hypertension, dialysis on Tuesday, Tuesday, Tuesday presents with clotted fistula. Patient reports last dialysis 3 days ago. He had attempted dialysis today but noted that it was clotted. Patient's no symptoms at this time. We'll obtain labs to check potassium. EKG. The patient should be admitted to the hospital for fistula repair. We'll consult vascular surgeon 08/07/18 19:06 CBC, BMP 08/07/18 16:50 08/07/18 16:50 CMP Sodium 136 mmol/L (136-145) 08/07/18 16:50 Potassium 6.8 mmol/L (3.5-5.1) H* 08/07/18 16:50 Chloride 101 mmol/L (98-107) 08/07/18 16:50 Carbon Dioxide 22 mmol/L (21-32) 08/07/18 16:50 Anion Gap 12 MMOL/L (8-16) 08/07/18 16:50 BUN 107 mg/dL (7-18) H* 08/07/18 16:50 Creatinine 7.1 mg/dL (0.55-1.3) H 08/07/18 16:50 Creat Clearance w eGFR 5.89 (>60) 08/07/18 16:50 Random Glucose 91 mg/dL (74-106) 08/07/18 16:50 Calcium 8.6 mg/dL (8.5-10.1) 08/07/18 16:50 Total Bilirubin 0.4 mg/dL (0.2-1) 08/07/18 16:50 AST 11 U/L (15-37) L 08/07/18 16:50 ALT 29 U/L (13-61) 08/07/18 16:50 Alkaline Phosphatase 128 U/L (45-117) H 08/07/18 16:50 Total Protein 6.0 g/dl (6.4-8.2) L 08/07/18 16:50 Albumin 2.7 g/dl (3.4-5.0) L 08/07/18 16:50 Potassium is 6.8 but with no ECG changes. HyperK treatment given. Will repeat hyperkalemia. Will need to admit to telemetry. <Jeyson Rodas - Last Filed: 08/07/18 19:07> Heart Score/ECG Review #1 ECG reviewed & interpreted by me at: 17:30 08/07/18 17:58 NSR 65, RSR' V1-V3, no std/marcie, QTC 455 msec <Jeyson Rodas - Last Filed: 08/07/18 19:07>
[2018-08-07 17:18] LABS: BASO % 0.6 % (0-2.0); EOS % 1.9 % (0-4.5); HEMATOCRIT 22.9 % (32.4-45.2); HEMOGLOBIN 7.6 GM/dL (10.7-15.3); LYMPH % 13.9 % (8-40); MCH 30.7 pg (25.7-33.7); MCHC 33.2 g/dl (32.0-36.0); MEAN CELL VOLUME 92.4 fl (80-96); MEAN PLT VOLUME 7.1 fl (7.5-11.1); MONO % 5.4 % (3.8-10.2); NEUT % 78.2 % (42.8-82.8); PLATELET COUNT 275 K/MM3 (134-434); RBC 2.48 M/mm3 (3.60-5.2); RDW 15.6 % (11.6-15.6); WHITE BLOOD COUNT 7.8 K/mm3 (4.0-10.0)
[2018-08-07 17:53] LABS: ALBUMIN 2.7 g/dl (3.4-5.0); ALK PHOS 128 U/L (45-117); ANION GAP 12 MMOL/L (8-16); BILIRUBIN,TOTAL 0.4 mg/dL (0.2-1); CALCIUM 8.6 mg/dL (8.5-10.1); CHLORIDE 101 mmol/L (98-107); CO2 22 mmol/L (21-32); CREATININE 7.1 mg/dL (0.55-1.3); GLUCOSE,RANDOM 91 mg/dL (74-106); SGOT/AST 11 U/L (15-37); SGPT/ALT 29 U/L (13-61); SODIUM 136 mmol/L (136-145)
[2018-08-07 17:55] LABS: BLOOD UREA NITROGEN 107 mg/dL (7-18); POTASSIUM 6.8 mmol/L (3.5-5.1)
[2018-08-07] MEDS ORDERED: SODIUM POLYSTYRENE SULFONATE 15 GM/60 ML BOTTLE PO ONE (18:20)
[2018-08-07] MEDS ORDERED: DEXTROSE 50%-WATER - 25 GM/50 ML VIAL IVPUSH ONE (18:20)
[2018-08-07] MEDS ORDERED: INSULIN REGULAR HUMAN 100 UNITS/ML *VIAL IVPUSH ONE (18:20)
[2018-08-07] MEDS ORDERED: SODIUM BICARBONATE 8.4% 50 MEQ/50 ML DISP.SYRIN IVPUSH ONE (18:26)
[2018-08-07] MEDS ORDERED: SODIUM BICARBONATE 8.4% 50 MEQ/50 ML VIAL ONE (21:09)
[2018-08-07] MEDS ORDERED: DEXTROSE 50%-WATER 25 GM/50 ML DISP.SYRIN ONE (21:09)
[2018-08-07] MEDS ORDERED: SODIUM POLYSTYRENE SULFONATE 15 GM/60 ML BOTTLE ONE (21:10)
[2018-08-07] MEDS ORDERED: INSULIN (NOVOLOG) ASPART 100 UNITS/ML 10ML VIAL ONE (21:11)
--- NOTE | 2018-08-07 22:12 | HP ---
CHIEF COMPLAINT: AV graft nonfunctional. PCP: Jordan/Graciela ESCUDERO HISTORY OF PRESENT ILLNESS: This is a 58 year old female with a significant past medical history of ESRD on dialysis MWF who presented to the ED from her dialysis center for nonfunctional AV graft. She denies other complaints and reports feeling well. 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, prior cocaine Family History: unk Allergies codeine Allergy (Verified 07/05/18 19:14) diphenhydramine [From Benadryl] Allergy (Verified 07/05/18 19:14) heparin Allergy (Verified 07/05/18 19:14) HOME MEDICATIONS: 3 Medication Instructions Recorded Acetylcysteine Po/INH 20% 200 mg NEB RQID vial 06/24/18 [Mucomyst 20 Oral / INH Use Only*] Albuterol 0.083% Nebulizer Liza 1 amp NEB RQID amp 06/24/18 [Ventolin 0.083% Nebulizer Soln -] Amlodipine Besylate [Norvasc -] 10 mg PO DAILY tablet 06/24/18 Budesonide/Formeterol Fumarate 2 puff IH BID inhaler 06/24/18 [SYMBICORT 160/4.5mcg -] Phenytoin Na Extended [Dilantin -] 200 mg PO BID capsule 06/24/18 Sevelamer Carbonate [Renvela 2.4 gm PO TIDCM powd.pack 06/24/18 Powder Packet -] Silver Sulfadiazine 1% Top Cr 1 applic TP BID jar 06/24/18 [Silvadene -] cloNIDine HCL [Catapres -] 0.3 mg PO DAILY tablet 06/24/18 hydrALAZINE HCL [Apresoline -] 50 mg PO DAILY tablet 06/24/18 levETIRAcetam [Keppra -] 250 mg PO BID tablet 06/24/18 Acetaminophen 325 mg PO PRN 07/05/18 Docusate Sodium [Colace] 100 mg PO DAILY 07/05/18 Darbepoetin Raymond in Polysorbat 40 mcg IJ MONTHLY 08/07/18 [Aranesp] Iron Sucrose Complex [Venofer] 50 mg IV WEEKLY 08/07/18 Mirtazapine [Remeron -] 30 mg PO DAILY 08/07/18 Sennosides [Senna] 8.6 mg PO HS 08/07/18 REVIEW OF SYSTEMS CONSTITUTIONAL: Absent: fever, chills, diaphoresis, generalized weakness, malaise, loss of appetite, weight change HEENT: Absent: rhinorrhea, nasal congestion, throat pain, throat swelling, difficulty swallowing, mouth swelling, ear pain, eye pain, visual changes CARDIOVASCULAR: Absent: chest pain, syncope, palpitations, irregular heart rate, lightheadedness , peripheral edema RESPIRATORY: Absent: cough, shortness of breath, dyspnea with exertion, orthopnea, wheezing, stridor, hemoptysis GASTROINTESTINAL: Absent: abdominal pain, abdominal distension, nausea, vomiting, diarrhea, constipation, melena, hematochezia GENITOURINARY: Absent: dysuria, frequency, urgency, hesitancy, hematuria, flank pain, genital pain MUSCULOSKELETAL: Absent: myalgia, arthralgia, joint swelling, back pain, neck pain SKIN: Absent: rash, itching, pallor HEMATOLOGIC/IMMUNOLOGIC: Absent: easy bleeding, easy bruising, lymphadenopathy, frequent infections ENDOCRINE: Absent: unexplained weight gain, unexplained weight loss, heat intolerance, cold intolerance NEUROLOGIC: Absent: headache, focal weakness or paresthesias, dizziness, unsteady gait, seizure, mental status changes, bladder or bowel incontinence PSYCHIATRIC: Absent: anxiety, depression, suicidal or homicidal ideation, hallucinations. PHYSICAL EXAMINATION Vital Signs - 24 hr 3 08/07/18 08/07/18 08/07/18 15:30 15:36 21:05 Temperature 97.3 F L Pulse Rate 64 64 Pulse Rate [ 71 Right Radial] Respiratory 20 19 Rate Blood Pressure 137/58 L Blood Pressure 157/63 [Right Arm] O2 Sat by Pulse 100 100 100 Oximetry (%) GENERAL: Awake, alert, and fully oriented, in no acute distress. HEAD: Normal with no signs of trauma. EYES: Pupils equal, round and reactive to light, extraocular movements intact, sclera anicteric, conjunctiva clear. No lid lag. EARS, NOSE, THROAT: Ears normal, nares patent, oropharynx clear without exudates. Moist mucous membranes. NECK: Normal range of motion, supple without lymphadenopathy, JVD, or masses. LUNGS: Breath sounds equal, clear to auscultation bilaterally. No wheezes, and no crackles. No accessory muscle use. HEART: Regular rate and rhythm, normal S1 and S2 without murmur, rub or gallop. ABDOMEN: Soft, nontender, not distended, normoactive bowel sounds, no guarding, no rebound, no masses. No hepatomegaly or splenomegaly. MUSCULOSKELETAL: Normal range of motion at all joints. No bony deformities or tenderness. No CVA tenderness. UPPER EXTREMITIES: 2+ pulses, warm, well-perfused. No cyanosis. No clubbing. No peripheral edema. L upper arm AV graft no bruit or thrill LOWER EXTREMITIES: 1+ pulses, warm, well-perfused. No calf tenderness. No peripheral edema. NEUROLOGICAL: Cranial nerves II-XII intact. Normal speech. Normal gait. PSYCHIATRIC: Cooperative. Good eye contact. Appropriate mood and affect. SKIN: Warm, dry, normal turgor, no rashes or lesions noted, normal capillary refill. Laboratory Results - last 24 hr 3 08/07/18 08/07/18 16:50 16:50 WBC 7.8 RBC 2.48 L Hgb 7.6 L Hct 22.9 L D MCV 92.4 MCH 30.7 MCHC 33.2 RDW 15.6 Plt Count 275 MPV 7.1 L Absolute Neuts (auto) 6.1 Neutrophils % 78.2 D Lymphocytes % 13.9 D Monocytes % 5.4 Eosinophils % 1.9 Basophils % 0.6 Nucleated RBC % 0 Sodium 136 Potassium 6.8 H* Chloride 101 Carbon Dioxide 22 Anion Gap 12 BUN 107 H* Creatinine 7.1 H Creat Clearance w eGFR 5.89 Random Glucose 91 Calcium 8.6 Total Bilirubin 0.4 AST 11 L ALT 29 Alkaline Phosphatase 128 H Total Protein 6.0 L Albumin 2.7 L Radiology Reports CXR portable Since the prior study of 07/05/2018, the tracheostomy tube and oxygen mask persist. Again is the prominent mediastinum with sclerotic knob. There are some central congestive changes. Correlation recommended. Reported By: Kelby Booth MD 08/07/18 2778 ASSESSMENT/PLAN: 58yF with PMH HTN, CAD, [place] 2017 with subsequent coma x 5 weeks, COPD, seizure disorder presented to the ED with nonfunctional AV graft. prior admission for same 07/05/18-07/07/18 Clotted L AV graft - vascular surgery consult ESRD - renal consult HTN/HLD/CAD - cont home meds, graciela [place] contacted multiple times to send med list, did not send after first 2 calls requesting same and no answer upon multiple further attempts, med list from dialysis center with incomplete dosing and differs from DC list on 07/07/18. Will need clarification COPD - Cont home meds DVT PPX - low risk, anticipated LOS less than 48h FEN - fluid restriction 1000mL - bmp @12am - renal diet as tolerated Dispo: Pt currently requires further observation Visit type - Emergency Visit Emergency Visit: Yes ED Registration Date: 08/07/18 Care time: The patient presented to the Emergency Department on the above date and was hospitalized for further evaluation of their emergent condition. - New Patient This patient is new to me today: Yes Date on this admission: 08/08/18 - Critical Care Critical Care patient: No
--- NOTE | 2018-08-07 23:24 | PROC ---
Central Line Insertion - Procedure Note TIME OUT performed prior to this procedure with verbal confirmation of correct patient identity, correct side, agreement of the procedure, correct patient position, availability of necessary equipment. The consent form is complete and accurate. Risk of possible infection and bleeding have been discussed with the patient. Safety precautions based on patient history or medication use has been addressed. Indication: Other (Clotted LUE AVG. Hyperkalemic and needs HD) Consent on Chart: Yes Central Line: Dialysis Cath, Tri Lumen Position: Supine Area prepped with Chlorhexidine solution then draped using sterile barrier protection. Anesthesia: Lidocaine 1% Technique used: Seldinger Site: Right Femoral Dark venous non-pulsatile flow noted from hub of needle. The catheter was introduced. Guide wire removed intact. Each port aspirated then flushed with sterile normal saline and capped. Line secured to skin with silk suture. Biopatch placed around base of line. Sterile occlusive dressing applied. No complications. Patient tolerated the procedure well.
[2018-08-07] MEDS ORDERED: ACETAMINOPHEN 325 MG TABLET (FP) PO PRN (23:53)
[2018-08-08] MEDS ORDERED: ACETAMINOPHEN 1000 MG/100 ML VIAL (NON FORMULARY) IVPB ONE (00:02)
[2018-08-08] MEDS ORDERED: ACETAMINOPHEN INJECTION 100 ML IVPB ONE (00:18)
[2018-08-08] MEDS ORDERED: oxyCODONE HCL 5 MG TABLET PO ONE (02:44)
[2018-08-08 03:50] LABS: ANION GAP 8 MMOL/L (8-16); CALCIUM 8.7 mg/dL (8.5-10.1); CHLORIDE 104 mmol/L (98-107); CO2 21 mmol/L (21-32); CREATININE 7.3 mg/dL (0.55-1.3); GLUCOSE,RANDOM 86 mg/dL (74-106); POTASSIUM 5.7 mmol/L (3.5-5.1); SODIUM 134 mmol/L (136-145)
[2018-08-08 03:52] LABS: BLOOD UREA NITROGEN 108 mg/dL (7-18)
[2018-08-08] MEDS: ALBUTEROL SO4 0.083% IH SOL 2.5 MG/3 ML VIAL.NEB. NEB PRN (04:28)
[2018-08-08 07:38] LABS: BASO % 0.6 % (0-2.0); EOS % 1.8 % (0-4.5); HEMATOCRIT 23.8 % (32.4-45.2); HEMOGLOBIN 7.8 GM/dL (10.7-15.3); LYMPH % 18.4 % (8-40); MCH 30.5 pg (25.7-33.7); MCHC 32.7 g/dl (32.0-36.0); MEAN CELL VOLUME 93.2 fl (80-96); MEAN PLT VOLUME 7.3 fl (7.5-11.1); MONO % 6.2 % (3.8-10.2); PLATELET COUNT 292 K/MM3 (134-434); RBC 2.55 M/mm3 (3.60-5.2); RDW 15.5 % (11.6-15.6); WHITE BLOOD COUNT 7.8 K/mm3 (4.0-10.0)
[2018-08-08 08:08] LABS: ANION GAP 14 MMOL/L (8-16); CALCIUM 8.8 mg/dL (8.5-10.1); CHLORIDE 100 mmol/L (98-107); CO2 22 mmol/L (21-32); GLUCOSE,RANDOM 83 mg/dL (74-106); MAGNESIUM 3.2 mg/dL (1.8-2.4); PHOSPHOROUS 7.1 mg/dL (2.5-4.9); POTASSIUM 5.8 mmol/L (3.5-5.1); SODIUM 136 mmol/L (136-145)
[2018-08-08 08:14] LABS: BLOOD UREA NITROGEN 115 mg/dL (7-18)
[2018-08-08 08:15] LABS: CREATININE 7.6 mg/dL (0.55-1.3)
--- NOTE | 2018-08-08 12:55 | EKG ---
Test Reason : Blood Pressure : / mmHG Vent. Rate : 065 BPM Atrial Rate : 065 BPM P-R Int : 188 ms QRS Dur : 094 ms QT Int : 438 ms P-R-T Axes : 062 077 068 degrees QTc Int : 455 ms NORMAL SINUS RHYTHM POSSIBLE LEFT ATRIAL ENLARGEMENT RSR' OR QR PATTERN IN V1 SUGGESTS RIGHT VENTRICULAR CONDUCTION DELAY BORDERLINE ECG Confirmed by MD EZEKIEL, JULIO ([id number]) on 08/08/2018 12:55:18 PM Referred By: Confirmed By:JULIO FALCON MD
--- NOTE | 2018-08-08 13:08 | CONSULT ---
Consult Consult Specialty:: Nephrology Reason for Consultation:: ESRD - History of Present Illness Chief Complaint: sent in for clotted graft History of Present Illness: Pt is a 58 year old female with pmhx of ESRD, epilepsy, asthma, HTN, and clotted fistula who presents to the ER for a clotted fistula. She is on a MWF HD schedule and was not able to get HD yesterday. She was found to be hyperkalemic and was treated medically. Shiley catheter was placed by surgery. She denies chest pain. SHe denied fevers or chills. She does have a heparin allergy. She is awake and alert. - History Source History Provided By: Patient, Medical Record - Past Medical History [employer]: Yes: Seizure Cardio/Vascular: Yes: HTN, Hyperlipdemia Renal/: Yes: Renal Failure, Hemodialysis ...: No - Past Surgical History Past Surgical History: Yes: AV Fistula/Graft - Alcohol/Substance Use Hx Alcohol Use: Yes (20yrs ago) - Smoking History Smoking history: Former smoker Have you smoked in the past 12 months: No Aproximately how many cigarettes per day: 40 If you are a former smoker, when did you quit?: 2017 Home Medications - Allergies Allergies/Adverse Reactions: Allergies Allergy/AdvReac Type Severity Reaction Status Date / Time codeine Allergy Verified 07/05/18 19:14 diphenhydramine Allergy Verified 07/05/18 19:14 [From Benadryl] heparin Allergy Verified 07/05/18 19:14 - Home Medications Home Medications: Ambulatory Orders Acetylcysteine Po/INH 20% [Mucomyst 20 Oral / INH Use Only*] 200 mg NEB RQID vial 06/24/18 Amlodipine Besylate [Norvasc -] 10 mg PO DAILY tablet 06/24/18 Budesonide/Formeterol Fumarate [SYMBICORT 160/4.5mcg -] 2 puff IH BID inhaler 06/24/18 Phenytoin Na Extended [Dilantin -] 200 mg PO BID capsule 06/24/18 Sevelamer Carbonate [Renvela Powder Packet -] 2.4 gm PO TIDCM powd.pack hydrALAZINE HCL [Apresoline -] 50 mg PO DAILY tablet 06/24/18 levETIRAcetam [Keppra -] 250 mg PO BID tablet 06/24/18 Acetaminophen 325 mg PO PRN 07/05/18 Docusate Sodium [Colace] 300 mg PO DAILY 07/05/18 Darbepoetin Raymond in Polysorbat [Aranesp] 40 mcg IJ MONTHLY 08/07/18 Iron Sucrose Complex [Venofer] 50 mg IV WEEKLY 08/07/18 Mirtazapine [Remeron -] 30 mg PO DAILY 08/07/18 Sennosides [Senna] 8.6 mg PO HS 08/07/18 Albuterol 0.083% Nebulizer Liza [Ventolin 0.083% Nebulizer Soln -] 2.5 mg NEB RQID 08/08/18 Dextromethorphan HBr/Quinidine [Nuedexta 20-10 mg Capsule] 1 each PO BID Silver Sulfadiazine 1% Top Cr [Silvadene -] 1 applic TP PRN 08/08/18 Vit B Comp No.3/Folic/C/Biotin [Diana-Denny Rx Tablet] 1 each PO DAILY 08/08/18 cloNIDine HCL [Catapres -] 0.1 mg PO DAILY 08/08/18 clonazePAM [Klonopin -] 0.5 mg PO BID 08/08/18 Family Disease History - Family Disease History Family History: Denies Review of Systems - Review of Systems Constitutional: reports: No Symptoms Eyes: reports: No Symptoms HENT: reports: No Symptoms Neck: reports: No Symptoms Cardiovascular: reports: No Symptoms Respiratory: reports: SOB Gastrointestinal: reports: No Symptoms Genitourinary: reports: No Symptoms Musculoskeletal: reports: No Symptoms Neurological: reports: No Symptoms Endocrine: reports: No Symptoms Hematology/Lymphatic: reports: No Symptoms Physical Exam Vital Signs: Vital Signs Temperature 98.3 F 08/08/18 10:00 Pulse Rate 72 08/08/18 10:00 Respiratory Rate 20 08/08/18 10:00 Blood Pressure 157/72 08/08/18 10:00 O2 Sat by Pulse Oximetry (%) 99 08/08/18 02:30 Constitutional: Yes: Calm Eyes: Yes: Conjunctiva Clear Cardiovascular: Yes: S1, S2 Respiratory: Yes: Other (trache) Gastrointestinal: Yes: Soft Renal/: Yes: Incontinence Musculoskeletal: Yes: WNL Extremities: Yes: WNL Edema: No Integumentary: Yes: Tattoos Neurological: Yes: Oriented Psychiatric: Yes: Oriented Labs: CBC, BMP 08/08/18 06:20 08/08/18 06:20 Laboratory Tests 08/07/18 08/08/18 16:50 03:00 Potassium 6.8 H* 5.7 H Imaging - Results Chest X-ray: Report Reviewed Problem List - Problems (1) HTN (hypertension) Code(s): I10 - ESSENTIAL (PRIMARY) HYPERTENSION (2) Anemia Code(s): D64.9 - ANEMIA, UNSPECIFIED (3) Dialysis catheter clot or failure Code(s): UBJ3253 - (4) AV fistula occlusion Code(s): T82.898A - OTH COMPLICATION OF VASCULAR PROSTH DEV/GRFT, INIT Qualifiers: Encounter type: initial encounter Qualified Code(s): T82.898A - Other specified complication of vascular prosthetic devices, implants and grafts, initial encounter (5) ESRD (end stage renal disease) on dialysis Code(s): N18.6 - END STAGE RENAL DISEASE; Z99.2 - DEPENDENCE ON RENAL DIALYSIS (6) Seizure disorder Code(s): G40.909 - EPILEPSY, UNSP, NOT INTRACTABLE, WITHOUT STATUS EPILEPTICUS (7) Tracheostomy dependent Code(s): Z93.0 - TRACHEOSTOMY STATUS Assessment/Plan Current Medications Generic Name Dose Route Start Last Admin Trade Name Freq PRN Reason Stop Dose Admin Acetaminophen 650 mg 08/07/18 23:53 Tylenol - PO Q6H PRN PAIN LEVEL 1-5 Albuterol Sulfate 1 amp 08/08/18 04:07 08/08/18 04:28 Ventolin 0.083% Nebulizer Soln - NEB 1 amp Q4H PRN Administration SHORT OF BREATH/WHEEZING Impression 1. ESRD 2. occluded graft 3. epilepsy 4. chronic resp failure on trache 5. HTN 6. hyperkalemia 7. anemia Plan - will arrange for HD today - pt being moved to a room that is compatible with HD - damaso in place - vascular eval for fistula repair - HD AVF, 3 hrs, 450 abf, regular dialyzer, 2k standard bath, aranesp 40, venofer 50 - pt has a heparin allergy - citrate bath on HD
[2018-08-08] MEDS ORDERED: IRON SUCROSE INJECTION 100 MG in SODIUM CHLORIDE 95 ML IVPB ONE (13:17)
[2018-08-08] MEDS ORDERED: SODIUM CHLORIDE 250 ML IV PRN (13:17)
[2018-08-08] MEDS ORDERED: EPOETIN ALFA 2,000 UNIT/1 ML VIAL IVPUSH ONE (13:17)
--- NOTE | 2018-08-08 13:25 | SPA.PREOP ---
- PRE-OP NOTE Dx: Clotted LUE AV fistula Planned Procedure: Declot of Left AV fistula Surgeon: Murali Paz DO Consent: Will be obtained after surgeon explains all risks, benefits and alternatives. Opportunity for questions. Last Vital Signs Temp Pulse Resp BP Pulse Ox 98.3 F 72 20 157/72 99 08/08/18 10:00 08/08/18 10:00 08/08/18 10:00 08/08/18 10:00 08/08/18 02:30 Lab Results WBC 7.8 K/mm3 (4.0-10.0) 08/08/18 06:20 RBC 2.55 M/mm3 (3.60-5.2) L 08/08/18 06:20 Hgb 7.8 GM/dL (10.7-15.3) L 08/08/18 06:20 Hct 23.8 % (32.4-45.2) L 08/08/18 06:20 MCV 93.2 fl (80-96) 08/08/18 06:20 MCHC 32.7 g/dl (32.0-36.0) 08/08/18 06:20 RDW 15.5 % (11.6-15.6) 08/08/18 06:20 Plt Count 292 K/MM3 (134-434) 08/08/18 06:20 Sodium 136 mmol/L (136-145) 08/08/18 06:20 Potassium 5.8 mmol/L (3.5-5.1) H 08/08/18 06:20 Chloride 100 mmol/L (98-107) 08/08/18 06:20 Carbon Dioxide 22 mmol/L (21-32) 08/08/18 06:20 Anion Gap 14 MMOL/L (8-16) 08/08/18 06:20 BUN 115 mg/dL (7-18) H* 08/08/18 06:20 Creatinine 7.6 mg/dL (0.55-1.3) H* 08/08/18 06:20 Random Glucose 83 mg/dL (74-106) 08/08/18 06:20 Calcium 8.8 mg/dL (8.5-10.1) 08/08/18 06:20 - IMAGING Chest X-ray: Report Reviewed EKG: Report Reviewed - ASSESSMENT/PLAN 1. Make NPO after midnight except po meds 2. GI/DVT PPX 3. Medical optimization / clearance
--- NOTE | 2018-08-08 13:49 | PN ---
Progress Note (short form) - Note Progress Note: Unable to be dialysed with new femoral shiley Vital Signs - 24 hr 08/07/18 08/07/18 08/07/18 15:30 15:36 17:20 Temperature Pulse Rate 64 64 Pulse Rate [ Right Radial] Respiratory 20 Rate Blood Pressure 137/58 L Blood Pressure [Right Arm] O2 Sat by Pulse 100 100 100 Oximetry (%) 08/07/18 08/07/18 08/08/18 21:05 23:00 01:41 Temperature 97.3 F L 97.5 F L 95 F L Pulse Rate Pulse Rate [ 71 77 95 H Right Radial] Respiratory 19 17 17 Rate Blood Pressure Blood Pressure 157/63 125/60 156/68 [Right Arm] O2 Sat by Pulse 100 100 100 Oximetry (%) 08/08/18 08/08/18 08/08/18 02:30 06:00 06:25 Temperature 98.1 F 98.1 F Pulse Rate 78 73 Pulse Rate [ Right Radial] Respiratory 18 20 20 Rate Blood Pressure 181/79 H 145/75 Blood Pressure [Right Arm] O2 Sat by Pulse 99 Oximetry (%) 08/08/18 10:00 Temperature 98.3 F Pulse Rate 72 Pulse Rate [ Right Radial] Respiratory 20 Rate Blood Pressure 157/72 Blood Pressure [Right Arm] O2 Sat by Pulse Oximetry (%) Current Medications Generic Name Dose Route Start Last Admin Trade Name Freq PRN Reason Stop Dose Admin Acetaminophen 650 mg 08/07/18 23:53 Tylenol - PO Q6H PRN PAIN LEVEL 1-5 Albuterol Sulfate 1 amp 08/08/18 04:07 08/08/18 04:28 Ventolin 0.083% Nebulizer Soln - NEB 1 amp Q4H PRN Administration SHORT OF BREATH/WHEEZING Epoetin Raymond 6,000 unit 08/08/18 13:17 Epogen - IVPUSH 08/08/18 13:18 ONCE ONE Sodium Chloride 250 mls @ 3,000 mls/hr 08/08/18 13:17 Normal Saline - IV 08/09/18 13:17 PRN PRN Hypotension during Dialysis Laboratory Results - last 24 hr 08/07/18 08/07/18 08/08/18 16:50 16:50 03:00 WBC 7.8 RBC 2.48 L Hgb 7.6 L Hct 22.9 L D MCV 92.4 MCH 30.7 MCHC 33.2 RDW 15.6 Plt Count 275 MPV 7.1 L Absolute Neuts (auto) 6.1 Neutrophils % 78.2 D Lymphocytes % 13.9 D Monocytes % 5.4 Eosinophils % 1.9 Basophils % 0.6 Nucleated RBC % 0 Sodium 136 134 L Potassium 6.8 H* 5.7 H Chloride 101 104 Carbon Dioxide 22 21 Anion Gap 12 8 BUN 107 H* 108 H* Creatinine 7.1 H 7.3 H Creat Clearance w eGFR 5.89 5.70 Random Glucose 91 86 Calcium 8.6 8.7 Phosphorus Magnesium Total Bilirubin 0.4 AST 11 L ALT 29 Alkaline Phosphatase 128 H Total Protein 6.0 L Albumin 2.7 L 08/08/18 08/08/18 06:20 06:20 WBC 7.8 RBC 2.55 L Hgb 7.8 L Hct 23.8 L MCV 93.2 MCH 30.5 MCHC 32.7 RDW 15.5 Plt Count 292 MPV 7.3 L Absolute Neuts (auto) 5.7 Neutrophils % 73.0 Lymphocytes % 18.4 D Monocytes % 6.2 Eosinophils % 1.8 Basophils % 0.6 Nucleated RBC % 0 Sodium 136 Potassium 5.8 H Chloride 100 Carbon Dioxide 22 Anion Gap 14 BUN 115 H* Creatinine 7.6 H* Creat Clearance w eGFR 5.45 Random Glucose 83 Calcium 8.8 Phosphorus 7.1 H Magnesium 3.2 H Total Bilirubin AST ALT Alkaline Phosphatase Total Protein Albumin S1 S2 RRR Lungs decreased Abd- soft, NT trach collar+ No edema PLAN -- spoke with Vascular and will place another one today -- will need HD for management of potassium -- pt will go to OR for dialysis access
[2018-08-08] MEDS ORDERED: ALBUTEROL SO4 0.083% IH SOL 2.5 MG/3 ML VIAL.NEB. NEB PRN ×2 (13:51→14:11)
[2018-08-08] MEDS ORDERED: morphine CARPU-JECT 2 MG/1 ML DISP.SYRIN IVPUSH ONE (14:05)
[2018-08-08] MEDS ORDERED: MORPHINE SULFATE 2 MG/ML VIAL IVPUSH ONE ×2 (14:15→14:34)
[2018-08-08] MEDS ORDERED: PT OWN MED DRAWER 7, Y5N ONE ×4 (15:25→21:44)
[2018-08-08] MEDS: DOCUSATE SODIUM 100 MG CAPSULE (FP) PO SCH (15:30)
[2018-08-08] MEDS ORDERED: EPOETIN ALFA 3,000 UNIT/1 ML ML IVPUSH ONE (15:45)
--- NOTE | 2018-08-08 15:57 | PROC ---
Central Line Insertion - Procedure Note TIME OUT performed prior to this procedure with verbal confirmation of correct patient identity, correct side, agreement of the procedure, correct patient position, availability of necessary equipment. The consent form is complete and accurate. Risk of possible infection, bleeding have been discussed with the patient. Safety precautions based on patient history or medication use has been addressed. Consent on Chart: Yes Central Line: Dialysis Cath, Dual Lumen Position: Supine Area prepped with Chlorhexidine solution then draped using sterile barrier protection. Anesthesia: Lidocaine 1% Technique used: Seldinger Ultrasound Guided Assistance: No Site: Right Femoral Right femoral shiley exchanged over a guide wire. Guide wire removed intact. Each port aspirated then flushed with sterile. Line secured in place and pt had dialysis treatment immediately without difficulty.
[2018-08-08] MEDS: SEVELAMER CARBONATE 2.4 GM POWDER PACKET PO SCH (18:50)
[2018-08-08] MEDS: cloNIDine HCL 0.1 MG TABLET PO SCH (18:50)
[2018-08-08] MEDS: amLODIPine BESYLATE 10 MG TABLET (FP) PO SCH (18:50)
[2018-08-08] MEDS: hydrALAZINE HCL 50 MG TABLET (FP) PO SCH (18:51)
[2018-08-08] MEDS: clonazePAM 0.5 MG TABLET PO SCH ×2 (18:59→21:47)
[2018-08-08] MEDS ORDERED: ONDANSETRON 4 MG/2 ML VIAL IVPUSH ONE (19:39)
[2018-08-08 21:00] LABS: ANION GAP 8 MMOL/L (8-16); BLOOD UREA NITROGEN 32 mg/dL (7-18); CALCIUM 7.9 mg/dL (8.5-10.1); CHLORIDE 101 mmol/L (98-107); CO2 30 mmol/L (21-32); CREATININE 2.7 mg/dL (0.55-1.3); GLUCOSE,RANDOM 104 mg/dL (74-106); POTASSIUM 3.5 mmol/L (3.5-5.1); SODIUM 139 mmol/L (136-145)
[2018-08-08] MEDS: SENNOSIDES 8.6MG TABLET (FP) PO SCH (21:47)
[2018-08-08] MEDS: levETIRAcetam 250 MG TABLET (FP) PO SCH (21:47)
[2018-08-08] MEDS: MIRTAZAPINE 30 MG TABLET (FP) PO SCH (21:47)
[2018-08-08] MEDS: PHENYTOIN NA EXTENDED 100 MG CAPSULE (FP) PO SCH (21:47)
[2018-08-08] MEDS: BUDESONIDE/FORMETEROL FUMARATE 160/4.5 mcg INHALER IH SCH (21:48)
[2018-08-08] MEDS ORDERED: SENNOSIDES 8.6MG TABLET (FP) PO SCH (22:00)
[2018-08-09] MEDS: ALBUTEROL SO4 0.083% IH SOL 2.5 MG/3 ML VIAL.NEB. NEB PRN (02:13)
[2018-08-09] MEDS ORDERED: MIRTAZAPINE 30 MG TABLET (FP) PO SCH (10:00)
[2018-08-09] MEDS ORDERED: LIDOCAINE HCL 1%, 10 MG/ML (20ML VIAL) INF ONE (10:33)
[2018-08-09] MEDS: hydrALAZINE HCL 50 MG TABLET (FP) PO SCH (10:35)
[2018-08-09] MEDS: cloNIDine HCL 0.1 MG TABLET PO SCH (10:36)
[2018-08-09] MEDS: PHENYTOIN NA EXTENDED 100 MG CAPSULE (FP) PO SCH ×2 (10:36→21:15)
[2018-08-09] MEDS: amLODIPine BESYLATE 10 MG TABLET (FP) PO SCH (10:37)
[2018-08-09] MEDS: levETIRAcetam 250 MG TABLET (FP) PO SCH ×2 (10:37→21:15)
[2018-08-09] MEDS: clonazePAM 0.5 MG TABLET PO SCH ×2 (10:37→21:15)
[2018-08-09] MEDS: DOCUSATE SODIUM 100 MG CAPSULE (FP) PO SCH (10:38)
[2018-08-09] MEDS: SEVELAMER CARBONATE 2.4 GM POWDER PACKET PO SCH ×3 (10:38→18:15)
[2018-08-09] MEDS: BUDESONIDE/FORMETEROL FUMARATE 160/4.5 mcg INHALER IH SCH ×2 (11:00→21:15)
--- NOTE | 2018-08-09 11:19 | PN ---
Progress Note, Physician History of Present Illness: Pt seen and examined at bedside. She tolerated HD yesterday. She denies fevers or chills. She feels that her breathing is at baseline. - Current Medication List Current Medications: Active Medications Acetaminophen (Tylenol -) 650 mg PO Q6H PRN PRN Reason: PAIN LEVEL 1-5 Albuterol Sulfate (Ventolin 0.083% Nebulizer Soln -) 1 amp NEB Q4H PRN PRN Reason: SHORT OF BREATH/WHEEZING Last Admin: 08/09/18 02:13 Dose: 1 amp Albuterol Sulfate (Ventolin 0.083% Nebulizer Soln -) 1 amp NEB Q6H PRN PRN Reason: ASTHMA Amlodipine Besylate (Norvasc -) 10 mg PO DAILY COUNTS INCLUDE 234 BEDS AT THE [facility] Last Admin: 08/09/18 10:37 Dose: 10 mg Budesonide/Formoterol Fumarate (Symbicort 160/4.5mcg -) 2 puff IH BID COUNTS INCLUDE 234 BEDS AT THE [facility] Last Admin: 08/08/18 21:48 Dose: 2 puff Clonazepam (Klonopin -) 0.5 mg PO BID COUNTS INCLUDE 234 BEDS AT THE [facility] Last Admin: 08/09/18 10:37 Dose: 0.5 mg Clonidine (Catapres -) 0.1 mg PO DAILY COUNTS INCLUDE 234 BEDS AT THE [facility] Last Admin: 08/09/18 10:36 Dose: 0.1 mg Docusate Sodium (Colace -) 300 mg PO DAILY COUNTS INCLUDE 234 BEDS AT THE [facility] Last Admin: 08/09/18 10:38 Dose: Not Given Hydralazine HCl (Apresoline -) 50 mg PO DAILY COUNTS INCLUDE 234 BEDS AT THE [facility] Last Admin: 08/09/18 10:35 Dose: 50 mg Sodium Chloride (Normal Saline -) 250 mls @ 3,000 mls/hr IV PRN PRN PRN Reason: Hypotension during Dialysis Stop: 08/09/18 13:17 Levetiracetam (Keppra -) 250 mg PO BID COUNTS INCLUDE 234 BEDS AT THE [facility] Last Admin: 08/09/18 10:37 Dose: 250 mg Mirtazapine (Remeron -) 30 mg PO [facility] Last Admin: 08/08/18 21:47 Dose: 30 mg Phenytoin Sodium (Dilantin -) 200 mg PO BID COUNTS INCLUDE 234 BEDS AT THE [facility] Last Admin: 08/09/18 10:36 Dose: 200 mg Senna (Senna -) 1 tab PO HS COUNTS INCLUDE 234 BEDS AT THE [facility] Last Admin: 08/08/18 21:47 Dose: Not Given Sevelamer Carbonate (Renvela Powder Packet -) 2.4 gm PO TIDCM TREVA Last Admin: 08/09/18 10:38 Dose: Not Given - Objective Vital Signs: Vital Signs Temperature 98.3 F 08/09/18 06:00 Pulse Rate 59 L 08/09/18 06:00 Respiratory Rate 20 08/09/18 06:00 Blood Pressure 147/65 08/09/18 06:00 O2 Sat by Pulse Oximetry (%) 97 08/09/18 02:00 Constitutional: Yes: Calm HENT: Yes: Other (trache) Cardiovascular: Yes: S1, S2 Respiratory: Yes: Rhonchi Gastrointestinal: Yes: Normal Bowel Sounds, Soft Genitourinary: Yes: Incontinence Musculoskeletal: Yes: WNL Edema: No Integumentary: Yes: Tattoos Neurological: Yes: Oriented Psychiatric: Yes: Oriented Labs: CBC, BMP 08/08/18 06:20 08/08/18 19:00 Problem List - Problems (1) HTN (hypertension) Code(s): I10 - ESSENTIAL (PRIMARY) HYPERTENSION (2) Anemia Code(s): D64.9 - ANEMIA, UNSPECIFIED (3) Dialysis catheter clot or failure Code(s): IZH0596 - (4) AV fistula occlusion Code(s): T82.898A - [facility] COMPLICATION OF VASCULAR PROSTH DEV/GRFT, INIT Qualifiers: Encounter type: initial encounter Qualified Code(s): T82.898A - Other specified complication of vascular prosthetic devices, implants and grafts, initial encounter (5) ESRD (end stage renal disease) on dialysis Code(s): N18.6 - END STAGE RENAL DISEASE; Z99.2 - DEPENDENCE ON RENAL DIALYSIS (6) Seizure disorder Code(s): G40.909 - EPILEPSY, UNSP, NOT INTRACTABLE, WITHOUT STATUS EPILEPTICUS (7) Tracheostomy dependent Code(s): Z93.0 - TRACHEOSTOMY STATUS Assessment/Plan Current Medications Generic Name Dose Route Start Last Admin Trade Name Freq PRN Reason Stop Dose Admin Acetaminophen 650 mg 08/07/18 23:53 Tylenol - PO Q6H PRN PAIN LEVEL 1-5 Albuterol Sulfate 1 amp 08/08/18 04:07 08/09/18 02:13 Ventolin 0.083% Nebulizer Soln - NEB 1 amp Q4H PRN Administration SHORT OF BREATH/WHEEZING Albuterol Sulfate 1 amp 08/08/18 14:11 Ventolin 0.083% Nebulizer Soln - NEB Q6H PRN ASTHMA Amlodipine Besylate 10 mg 08/08/18 14:15 08/09/18 10:37 Norvasc - PO 10 mg DAILY TREVA Administration Budesonide/Formoterol Fumarate 2 puff 08/08/18 22:00 08/08/18 21:48 Symbicort 160/4.5mcg - IH 2 puff BID TREVA Administration Clonazepam 0.5 mg 08/08/18 14:00 08/09/18 10:37 Klonopin - PO 0.5 mg BID TREVA Administration Clonidine 0.1 mg 08/08/18 14:15 08/09/18 10:36 Catapres - PO 0.1 mg DAILY TREVA Administration Docusate Sodium 300 mg 08/08/18 14:15 08/09/18 10:38 Colace - PO Not Given DAILY TREVA Hydralazine HCl 50 mg 08/08/18 14:15 08/09/18 10:35 Apresoline - PO 50 mg DAILY TREVA Administration Sodium Chloride 250 mls @ 3,000 mls/hr 08/08/18 13:17 Normal Saline - IV 08/09/18 13:17 PRN PRN Hypotension during Dialysis Levetiracetam 250 mg 08/08/18 22:00 08/09/18 10:37 Keppra - PO 250 mg BID TREVA Administration Mirtazapine 30 mg 08/08/18 22:00 08/08/18 21:47 Remeron - PO 30 mg HS TREVA Administration Phenytoin Sodium 200 mg 08/08/18 22:00 08/09/18 10:36 Dilantin - PO 200 mg BID TREVA Administration Senna 1 tab 08/08/18 22:00 08/08/18 21:47 Senna - PO Not Given HS TREVA Sevelamer Carbonate 2.4 gm 08/08/18 17:30 08/09/18 10:38 Renvela Powder Packet - PO Not Given TIDCM TREVA Impression 1. ESRD 2. occluded graft 3. epilepsy 4. chronic resp failure on trache 5. HTN 6. hyperkalemia 7. anemia Plan - OR today for access repair - will arrenge for HD in am - HD AVF, 3 hrs, 450 abf, regular dialyzer, 2k standard bath, aranesp 40, venofer 50 - pt has a heparin allergy - citrate bath on HD
[2018-08-09] MEDS ORDERED: PT OWN MED DRAWER 7, Y5N ONE ×3 (11:27→21:11)
--- NOTE | 2018-08-09 11:56 | PN ---
Progress Note (short form) - Note Progress Note: no distress awaiting to go OR dialysed yesterday Vital Signs - 24 hr 08/08/18 08/08/18 08/08/18 14:00 14:30 14:40 Temperature 98.5 F 97.8 F Pulse Rate 78 90 88 Respiratory 20 18 18 Rate Blood Pressure 153/75 182/78 H 189/77 H O2 Sat by Pulse Oximetry (%) 08/08/18 08/08/18 08/08/18 15:10 15:40 16:10 Temperature Pulse Rate 75 55 L 66 Respiratory 18 18 18 Rate Blood Pressure 162/78 103/46 L 133/65 O2 Sat by Pulse Oximetry (%) 08/08/18 08/08/18 08/08/18 16:40 17:10 17:40 Temperature Pulse Rate 73 75 81 Respiratory 18 18 18 Rate Blood Pressure 134/67 150/73 143/73 O2 Sat by Pulse Oximetry (%) 08/08/18 08/08/18 08/08/18 17:55 18:15 22:00 Temperature 97.9 F Pulse Rate 80 78 75 Respiratory 18 18 18 Rate Blood Pressure 139/74 151/74 163/78 O2 Sat by Pulse Oximetry (%) 08/09/18 08/09/18 08/09/18 02:00 06:00 10:00 Temperature 98.3 F 98.3 F 98.0 F Pulse Rate 69 59 L 70 Respiratory 20 20 18 Rate Blood Pressure 137/68 147/65 140/63 O2 Sat by Pulse 97 Oximetry (%) Current Medications Generic Name Dose Route Start Last Admin Trade Name Freq PRN Reason Stop Dose Admin Acetaminophen 650 mg 08/07/18 23:53 Tylenol - PO Q6H PRN PAIN LEVEL 1-5 Albuterol Sulfate 1 amp 08/08/18 04:07 08/09/18 02:13 Ventolin 0.083% Nebulizer Soln - NEB 1 amp Q4H PRN Administration SHORT OF BREATH/WHEEZING Albuterol Sulfate 1 amp 08/08/18 14:11 Ventolin 0.083% Nebulizer Soln - NEB Q6H PRN ASTHMA Amlodipine Besylate 10 mg 08/08/18 14:15 08/09/18 10:37 Norvasc - PO 10 mg DAILY TREVA Administration Budesonide/Formoterol Fumarate 2 puff 08/08/18 22:00 10/23/18 21:48 Symbicort 160/4.5mcg - IH 2 puff BID TREVA Administration Clonazepam 0.5 mg 08/08/18 14:00 08/09/18 10:37 Klonopin - PO 0.5 mg BID TREVA Administration Clonidine 0.1 mg 08/08/18 14:15 08/09/18 10:36 Catapres - PO 0.1 mg DAILY TREVA Administration Docusate Sodium 300 mg 08/08/18 14:15 08/09/18 10:38 Colace - PO Not Given DAILY TREVA Epoetin Raymond 7,000 unit 08/10/18 11:19 Epogen - IVPUSH 08/10/18 11:20 ONCE ONE Hydralazine HCl 50 mg 08/08/18 14:15 08/09/18 10:35 Apresoline - PO 50 mg DAILY TREVA Administration Sodium Chloride 250 mls @ 3,000 mls/hr 08/08/18 13:17 Normal Saline - IV 08/09/18 13:17 PRN PRN Hypotension during Dialysis Sodium Chloride 250 mls @ 3,000 mls/hr 08/09/18 11:19 Normal Saline - IV 08/10/18 11:19 PRN PRN Hypotension during Dialysis Levetiracetam 250 mg 08/08/18 22:00 08/09/18 10:37 Keppra - PO 250 mg BID TREVA Administration Mirtazapine 30 mg 08/08/18 22:00 08/08/18 21:47 Remeron - PO 30 mg HS TREVA Administration Phenytoin Sodium 200 mg 08/08/18 22:00 08/09/18 10:36 Dilantin - PO 200 mg BID TREVA Administration Senna 1 tab 08/08/18 22:00 08/08/18 21:47 Senna - PO Not Given HS TREVA Sevelamer Carbonate 2.4 gm 08/08/18 17:30 08/09/18 10:38 Renvela Powder Packet - PO Not Given TIDCM TREVA Laboratory Results - last 24 hr 08/08/18 08/08/18 16:00 19:00 Sodium 139 Potassium 3.5 Chloride 101 Carbon Dioxide 30 Anion Gap 8 BUN 32 H Creatinine 2.7 H Creat Clearance w eGFR 17.98 Random Glucose 104 Calcium 7.9 L Hep C Ab Diagnostic Cancelled Hepatitis C RNA Cancelled HCV RNA PCR log endoscopy technician/ml Cancelled HCV RNA (PCR) IUs/ml Cancelled HCV RNA PCR w/Genot Rflx Cancelled Liver Fibrosis Interp Cancelled S1 S2 RRR trach collar Abd- soft , NT decreased BS no edema PLAN for OR today for left AVF declotting pt has right femoral shiley potassium better continue with meds Problem List - Problems (1) Anemia Code(s): D64.9 - ANEMIA, UNSPECIFIED (2) Dialysis catheter clot or failure Code(s): LDT2572 - (3) HTN (hypertension) Code(s): I10 - ESSENTIAL (PRIMARY) HYPERTENSION (4) AV fistula occlusion Code(s): T82.898A - OTH COMPLICATION OF VASCULAR PROSTH DEV/GRFT, INIT Qualifiers: Encounter type: initial encounter Qualified Code(s): T82.898A - Other specified complication of vascular prosthetic devices, implants and grafts, initial encounter (5) ESRD (end stage renal disease) on dialysis Code(s): N18.6 - END STAGE RENAL DISEASE; Z99.2 - DEPENDENCE ON RENAL DIALYSIS
[2018-08-09] MEDS ORDERED: ONDANSETRON 4 MG/2 ML VIAL IVPUSH PRN (14:41)
[2018-08-09] MEDS ORDERED: PROMETHAZINE HCL 25 MG/1 ML VIAL IVPUSH PRN (14:41)
[2018-08-09] MEDS ORDERED: LIDOCAINE HCL 1%, 10 MG/ML (20ML VIAL) ONE (15:08)
[2018-08-09] MEDS ORDERED: MIDAZOLAM HCL 2 MG/2 ML SINGLE DOSE VIAL ONE ×2 (15:17)
[2018-08-09] MEDS ORDERED: PROPOFOL 20 ML ONE ×2 (15:22→16:00)
[2018-08-09] MEDS ORDERED: ceFAZolin SODIUM 1 GM VIAL ONE (15:25)
[2018-08-09] MEDS ORDERED: ceFAZolin SODIUM 1 GM VIAL IVPB ONE (15:27)
--- NOTE | 2018-08-09 17:21 | OP ---
Operative Note - Note: Operative Date: 08/09/18 Pre-Operative Diagnosis: Clotted left AVG Operation: Venogram, suction thrombectomy left avg, venoplasty, stent placement Post-Operative Diagnosis: Same as Pre-op Surgeon: Murali Paz Anesthesia: Fractional Estimated Blood Loss (mls): 50 Operative Report Dictated: Yes
[2018-08-09] MEDS: SODIUM CHLORIDE 1,000 ML IV SCH (19:21)
[2018-08-09] MEDS: MIRTAZAPINE 30 MG TABLET (FP) PO SCH (21:15)
[2018-08-09] MEDS: SENNOSIDES 8.6MG TABLET (FP) PO SCH (21:15)
[2018-08-10] MEDS: ALBUTEROL SO4 0.083% IH SOL 2.5 MG/3 ML VIAL.NEB. NEB PRN ×2 (07:32→20:40)
--- NOTE | 2018-08-10 07:44 | PN ---
Progress Note (short form) - Note Progress Note: Surgery POD #1 Left UE Venogram, suction thrombectomy left avg, venoplasty, stent placement patient seen and examined at bedside with no complaints. States she feel pretty good. She denies any CP, SOB, N/v/D, fever or chills. Vital Signs Temp 97.9 F 08/10/18 06:00 Pulse 77 08/10/18 07:31 Resp 20 08/10/18 06:00 BP 140/66 08/10/18 06:00 Pulse Ox 96 08/10/18 07:31 Intake & Output 08/09/18 08/09/18 08/10/18 11:59 23:59 11:59 Intake Total 490 Output Total 50 Balance 440 Intake: IV 250 Oral 240 Output: Urine 0 Estimated Blood Loss 50 Other: Voiding Method Diaper Incontinent # Unmeasured Voids Void 1 1 1 Bowel Movement Yes CBC, BMP 08/08/18 06:20 08/08/18 19:00 PE: A&Ox3, NAD Unlabored resp Left UE: incisions, c/d/i with sutures in situ, surrounding tissue intact with no erythema, edema collection or d/c, palpable thrill and well perfused hand and fingers. Left groin site clean and dry s/p trialysis catheter removed, no active bleeding or d/c. Problem List - Problems (1) Dialysis catheter clot or failure Assessment/Plan: POD #1 Left UE Venogram, suction thrombectomy left avg, venoplasty, stent placement, patient doing well. 1) DVT prophylaxis as per med 2) OOB as tolerated 3) pain control 4) may use left UE AVG 5) Follow up with Dr Paz as out patient. Code(s): ASD7263 -
--- NOTE | 2018-08-10 08:55 | OP ---
DATE OF OPERATION: 08/09/2018 PREOPERATIVE DIAGNOSIS: Clotted left arteriovenous graft. POSTOPERATIVE DIAGNOSIS: Clotted left arteriovenous graft. PROCEDURE: Venogram, suction thrombectomy, venoplasty, stent placement, left arteriovenous graft. SURGEON: Murali Thorpe MD ANESTHESIA: Fractional. BLOOD LOSS: 50 mL. INDICATIONS: The patient is a 58-year-old female who comes in with a clotted left AV graft. She had a temporary dialysis catheter placed in her groin for dialysis yesterday and now needs her access decloted. Patient was consented for the procedure understanding all risks, benefits, and alternatives and was then taken to the operating room. DESCRIPTION OF PROCEDURE: Once in the operating suite, she was laid on the operating table in the supine manner, and the area of the left arm was prepped and draped in the sterile surgical manner. We then injected 5 mL of lidocaine 1% in the proximal AV graft. We then went ahead and punctured the AV graft with a micropuncture needle. A micropuncture wire was inserted, and a short 6-Slovenian sheath was inserted. Venogram was taken of the access, and it showed that the access was clotted. We then placed a 0.035 floppy guidewire into the central vein. We then used an AVX Suction Thrombectomy Catheter and performed suction thrombectomy of the entire graft. We then shot another venogram by hand injection showing that the graft was patent now, but beyond the graft, there was a 90% stenosis in the outflow vein. At this point, we used an 8 x 8 Spencer balloon and performed venoplasty of the outflow vein which is the basilic vein and the entire graft was balloon, as well. Patient did not get any IV HEPARIN secondary to the fact that she has a bad HEPARIN allergy. We then went ahead and shot another venogram of the venoplasty, and there was significant recoil of the outflowing vein. We then went ahead and placed a 6 x 6 and a 6 x 4 LifeStent and that was ballooned in place using an 8 x 8 balloon. Completion venogram now showed that the outflow vein was now completely patent and there was good brisk flow. At this point, we went to the distal AV graft, and 5 mL of lidocaine 1% was given there. We then used our micropuncture needle and punctured the AV graft. Micropuncture wire was inserted, and a short 6-Slovenian sheath was placed facing towards the arterial anastomosis. We then went placed our 0.035 floppy guidewire and placed it across the anastomosis into the brachial artery. We then went ahead and used a 6 x 4 balloon and performed venoplasty of the proximal AV graft and the anastomosis. There was a good thrill in our AV graft, now. Completion venogram now showed that the graft was patent and there was good outflow through the vein and the proximal anastomosis was patent. At this point, we used a 4-0 Biosyn and a figure-of-8 stitch was placed around each sheath, and the sheaths were pulled. The area was wet and dried, and Dermabond was placed. The patient tolerated the procedure with no complications. Patient transferred to PACU in stable condition. Total blood loss 50 mL. MURALI THORPE DO [id number]
[2018-08-10] MEDS ORDERED: PT OWN MED DRAWER 7, Y5N ONE ×5 (09:57→22:28)
[2018-08-10] MEDS: DOCUSATE SODIUM 100 MG CAPSULE (FP) PO SCH ×2 (10:00→10:52)
[2018-08-10] MEDS: PHENYTOIN NA EXTENDED 100 MG CAPSULE (FP) PO SCH ×2 (10:02→22:01)
[2018-08-10] MEDS: levETIRAcetam 250 MG TABLET (FP) PO SCH ×2 (10:03→22:01)
[2018-08-10] MEDS: clonazePAM 0.5 MG TABLET PO SCH ×2 (10:04→22:01)
[2018-08-10] MEDS: cloNIDine HCL 0.1 MG TABLET PO SCH (10:04)
[2018-08-10] MEDS: hydrALAZINE HCL 50 MG TABLET (FP) PO SCH (10:04)
[2018-08-10] MEDS: SEVELAMER CARBONATE 2.4 GM POWDER PACKET PO SCH ×4 (10:04→16:55)
[2018-08-10] MEDS: amLODIPine BESYLATE 10 MG TABLET (FP) PO SCH (10:05)
[2018-08-10] MEDS: BUDESONIDE/FORMETEROL FUMARATE 160/4.5 mcg INHALER IH SCH ×2 (10:05→21:55)
[2018-08-10] MEDS ORDERED: EPOETIN ALFA 10,000 UNIT/1 ML VIAL IVPUSH ONE (11:00)
[2018-08-10] MEDS ORDERED: SODIUM CHLORIDE 250 ML IV PRN (11:19)
--- NOTE | 2018-08-10 12:03 | PN ---
Progress Note (short form) - Note Progress Note: no distress status post surgery for a clotted AvgVital Signs - 24 hr 08/09/18 08/09/18 08/09/18 14:15 16:33 16:45 Temperature 98.7 F 98.3 F Pulse Rate 68 64 58 L Respiratory 16 12 120 H Rate Blood Pressure 127/62 157/60 149/65 O2 Sat by Pulse 100 95 Oximetry (%) 08/09/18 08/09/18 08/09/18 17:00 17:20 18:00 Temperature 98.0 F 98.0 F Pulse Rate 56 L 62 74 Respiratory 16 18 18 Rate Blood Pressure 156/60 149/60 146/75 O2 Sat by Pulse 98 98 Oximetry (%) 08/09/18 08/10/18 08/10/18 22:00 02:00 06:00 Temperature 99.0 F 98.2 F 97.9 F Pulse Rate 75 69 69 Respiratory 18 20 20 Rate Blood Pressure 152/65 142/72 140/66 O2 Sat by Pulse Oximetry (%) 08/10/18 08/10/18 07:31 10:00 Temperature 98.9 F Pulse Rate 77 80 Respiratory 18 Rate Blood Pressure 146/67 O2 Sat by Pulse 96 Oximetry (%) Current Medications Generic Name Dose Route Start Last Admin Trade Name Freq PRN Reason Stop Dose Admin Acetaminophen 650 mg 08/07/18 23:53 Tylenol - PO Q6H PRN PAIN LEVEL 1-5 Albuterol Sulfate 1 amp 08/08/18 04:07 08/10/18 07:32 Ventolin 0.083% Nebulizer Soln - NEB 1 amp Q4H PRN Administration SHORT OF BREATH/WHEEZING Albuterol Sulfate 1 amp 08/08/18 14:11 Ventolin 0.083% Nebulizer Soln - NEB Q6H PRN ASTHMA Amlodipine Besylate 10 mg 08/08/18 14:15 08/10/18 10:05 Norvasc - PO 10 mg DAILY TREVA Administration Budesonide/Formoterol Fumarate 2 puff 08/08/18 22:00 08/10/18 10:05 Symbicort 160/4.5mcg - IH 2 puff BID TREVA Administration Clonazepam 0.5 mg 08/08/18 14:00 08/10/18 10:04 Klonopin - PO 0.5 mg BID TREVA Administration Clonidine 0.1 mg 08/08/18 14:15 08/10/18 10:04 Catapres - PO 0.1 mg DAILY TREVA Administration Docusate Sodium 300 mg 08/08/18 14:15 08/10/18 10:52 Colace - PO Not Given DAILY [facility] Fentanyl 50 mcg 08/09/18 14:41 Sublimaze Injection - IVPUSH [id number] PRN PAIN-PACU ORDER X 4 DOSES ONLY Hydralazine HCl 50 mg 08/08/18 14:15 08/10/18 10:04 Apresoline - PO 50 mg DAILY [facility]RE[facility] Administration Sodium Chloride 250 mls @ 3,000 mls/hr 08/10/18 11:19 Normal Saline - IV 08/11/18 11:18 PRN PRN Hypotension during Dialysis Sodium Chloride 1,000 mls @ 42 mls/hr 08/09/18 14:45 08/09/18 19:21 Normal Saline - IV Not Given ASDIR [facility]REVA Levetiracetam 250 mg 08/08/18 22:00 08/10/18 10:03 Keppra - PO 250 mg BID TRE[facility] Administration Mirtazapine 30 mg 08/08/18 22:00 08/09/18 21:15 Remeron - PO 30 mg HS [facility]RE[facility] Administration Ondansetron HCl 4 mg 08/09/18 14:41 08/09/18 19:05 Zofran Injection IVPUSH 4 mg Q6H PRN Administration NAUSEA AND/OR VOMITING Phenytoin Sodium 200 mg 08/08/18 22:00 08/10/18 10:02 Dilantin - PO 200 mg BID TRE[facility] Administration Promethazine HCl 12.5 mg 08/09/18 14:41 Phenergan Injection - IVPUSH Q6H PRN NAUSEA-FOR RESCUE AFTER 15 MIN Senna 1 tab 08/08/18 22:00 08/09/18 21:15 Senna - PO Not Given HS TREVA Sevelamer Carbonate 2.4 gm 08/08/18 17:30 08/10/18 10:04 Renvela Powder Packet - PO 2.4 gm TIDCM [facility]REVA Administration S1 S2 RRR trach collar Abd- soft , NT decreased BS no edema PLAN S/P left AVF declotting HD per renal potassium better continue with meds Problem List - Problems (1) Anemia Code(s): D64.9 - ANEMIA, UNSPECIFIED (2) Dialysis catheter clot or failure Code(s): [id number] - (3) HTN (hypertension) Code(s): I10 - ESSENTIAL (PRIMARY) HYPERTENSION (4) AV fistula occlusion Code(s): T82.898A - [facility] COMPLICATION OF VASCULAR PROSTH DEV/GRFT, INIT Qualifiers: Encounter type: initial encounter Qualified Code(s): T82.898A - Other specified complication of vascular prosthetic devices, implants and grafts, initial encounter (5) ESRD (end stage renal disease) on dialysis Code(s): N18.6 - END STAGE RENAL DISEASE; Z99.2 - DEPENDENCE ON RENAL DIALYSIS
[2018-08-10 13:14] LABS: HEMATOCRIT 22.2 % (32.4-45.2); HEMOGLOBIN 7.5 GM/dL (10.7-15.3); MCH 31.3 pg (25.7-33.7); MCHC 33.8 g/dl (32.0-36.0); MEAN CELL VOLUME 92.7 fl (80-96); MEAN PLT VOLUME 7.5 fl (7.5-11.1); PLATELET COUNT 314 K/MM3 (134-434); RBC 2.39 M/mm3 (3.60-5.2); RDW 16.3 % (11.6-15.6); WHITE BLOOD COUNT 4.4 K/mm3 (4.0-10.0)
--- NOTE | 2018-08-10 13:54 | PN ---
Progress Note (short form) - Note Progress Note: ANESTHESIA POSTOP: 58 yo female POD#1 L AV Fistula suction thrombectomy under TIVA Patient sitting comfortable in bed undergoing dialysis VSS, Afebrile No complications from anesthesia. Continue current care.
[2018-08-10 14:17] LABS: ANION GAP 12 MMOL/L (8-16); BLOOD UREA NITROGEN 45 mg/dL (7-18); CHLORIDE 104 mmol/L (98-107); CO2 28 mmol/L (21-32); CREATININE 4.3 mg/dL (0.55-1.3); GLUCOSE,RANDOM 129 mg/dL (74-106); POTASSIUM 3.5 mmol/L (3.5-5.1); SODIUM 144 mmol/L (136-145)
--- NOTE | 2018-08-10 14:45 | PN ---
Progress Note, Physician History of Present Illness: Pt seen and examined at bedside. She is tolerating HD. She denies shortness of breath. - Current Medication List Current Medications: Active Medications Acetaminophen (Tylenol -) 650 mg PO Q6H PRN PRN Reason: PAIN LEVEL 1-5 Albuterol Sulfate (Ventolin 0.083% Nebulizer Soln -) 1 amp NEB Q4H PRN PRN Reason: SHORT OF BREATH/WHEEZING Last Admin: 08/10/18 07:32 Dose: 1 amp Albuterol Sulfate (Ventolin 0.083% Nebulizer Soln -) 1 amp NEB Q6H PRN PRN Reason: ASTHMA Amlodipine Besylate (Norvasc -) 10 mg PO DAILY [facility] Last Admin: 08/10/18 10:05 Dose: 10 mg Budesonide/Formoterol Fumarate (Symbicort 160/4.5mcg -) 2 puff IH BID [facility] Last Admin: 08/10/18 10:05 Dose: 2 puff Clonazepam (Klonopin -) 0.5 mg PO BID [facility] Last Admin: 08/10/18 10:04 Dose: 0.5 mg Clonidine (Catapres -) 0.1 mg PO DAILY [facility] Last Admin: 08/10/18 10:04 Dose: 0.1 mg Docusate Sodium (Colace -) 300 mg PO DAILY [facility] Last Admin: 08/10/18 10:52 Dose: Not Given Fentanyl (Sublimaze Injection -) 50 mcg IVPUSH [id number] PRN PRN Reason: PAIN-PACU ORDER X 4 DOSES ONLY Hydralazine HCl (Apresoline -) 50 mg PO DAILY [facility] Last Admin: 08/10/18 10:04 Dose: 50 mg Sodium Chloride (Normal Saline -) 250 mls @ 3,000 mls/hr IV PRN PRN PRN Reason: Hypotension during Dialysis Stop: 08/11/18 11:18 Sodium Chloride (Normal Saline -) 1,000 mls @ 42 mls/hr IV ASDIR [facility] Last Admin: 08/09/18 19:21 Dose: Not Given Levetiracetam (Keppra -) 250 mg PO BID [facility] Last Admin: 08/10/18 10:03 Dose: 250 mg Mirtazapine (Remeron -) 30 mg PO HS [facility] Last Admin: 08/09/18 21:15 Dose: 30 mg Ondansetron HCl (Zofran Injection) 4 mg IVPUSH Q6H PRN PRN Reason: NAUSEA AND/OR VOMITING Last Admin: 08/09/18 19:05 Dose: 4 mg Phenytoin Sodium (Dilantin -) 200 mg PO BID [facility] Last Admin: 08/10/18 10:02 Dose: 200 mg Promethazine HCl (Phenergan Injection -) 12.5 mg IVPUSH Q6H PRN PRN Reason: NAUSEA-FOR RESCUE AFTER 15 MIN Senna (Senna -) 1 tab PO HS [facility] Last Admin: 08/09/18 21:15 Dose: Not Given Sevelamer Carbonate (Renvela Powder Packet -) 2.4 gm PO TIDCM [facility] Last Admin: 08/10/18 12:54 Dose: Not Given - Objective Vital Signs: Vital Signs Temperature 98.7 F 08/10/18 13:30 Pulse Rate 87 08/10/18 14:10 Respiratory Rate 18 08/10/18 14:10 Blood Pressure 109/58 L 08/10/18 14:10 O2 Sat by Pulse Oximetry (%) 96 08/10/18 07:31 Constitutional: Yes: Calm Eyes: Yes: Conjunctiva Clear HENT: Yes: Atraumatic Neck: Yes: Other (trache) Cardiovascular: Yes: S1, S2 Respiratory: Yes: Wheezes Gastrointestinal: Yes: Soft Genitourinary: Yes: Incontinence Musculoskeletal: Yes: WNL Edema: No Integumentary: Yes: Tattoos Neurological: Yes: Oriented Psychiatric: Yes: Oriented Labs: CBC, BMP 08/10/18 12:10 08/10/18 12:10 Problem List - Problems (1) HTN (hypertension) Code(s): I10 - ESSENTIAL (PRIMARY) HYPERTENSION (2) Anemia Code(s): D64.9 - ANEMIA, UNSPECIFIED (3) Dialysis catheter clot or failure Code(s): UGD5346 - (4) AV fistula occlusion Code(s): T82.898A - [facility] COMPLICATION OF VASCULAR PROSTH DEV/GRFT, INIT Qualifiers: Encounter type: initial encounter Qualified Code(s): T82.898A - Other specified complication of vascular prosthetic devices, implants and grafts, initial encounter (5) ESRD (end stage renal disease) on dialysis Code(s): N18.6 - END STAGE RENAL DISEASE; Z99.2 - DEPENDENCE ON RENAL DIALYSIS (6) Seizure disorder Code(s): G40.909 - EPILEPSY, UNSP, NOT INTRACTABLE, WITHOUT STATUS EPILEPTICUS (7) Tracheostomy dependent Code(s): Z93.0 - TRACHEOSTOMY STATUS Assessment/Plan Current Medications Generic Name Dose Route Start Last Admin Trade Name Freq PRN Reason Stop Dose Admin Acetaminophen 650 mg 08/07/18 23:53 Tylenol - PO Q6H PRN PAIN LEVEL 1-5 Albuterol Sulfate 1 amp 08/08/18 04:07 08/10/18 07:32 Ventolin 0.083% Nebulizer Soln - NEB 1 amp Q4H PRN Administration SHORT OF BREATH/WHEEZING Albuterol Sulfate 1 amp 08/08/18 14:11 Ventolin 0.083% Nebulizer Soln - NEB Q6H PRN ASTHMA Amlodipine Besylate 10 mg 08/08/18 14:15 08/10/18 10:05 Norvasc - PO 10 mg DAILY TREVA Administration Budesonide/Formoterol Fumarate 2 puff 08/08/18 22:00 08/10/18 10:05 Symbicort 160/4.5mcg - IH 2 puff BID [facility]RE[facility] Administration Clonazepam 0.5 mg 08/08/18 14:00 08/10/18 10:04 Klonopin - PO 0.5 mg BID [facility]RE[facility] Administration Clonidine 0.1 mg 08/08/18 14:15 08/10/18 10:04 Catapres - PO 0.1 mg DAILY [facility] Administration Docusate Sodium 300 mg 08/08/18 14:15 08/10/18 10:52 Colace - PO Not Given DAILY [facility] Fentanyl 50 mcg 08/09/18 14:41 Sublimaze Injection - IVPUSH [id number] PRN PAIN-PACU ORDER X 4 DOSES ONLY Hydralazine HCl 50 mg 08/08/18 14:15 08/10/18 10:04 Apresoline - PO 50 mg DAILY TRE[facility] Administration Sodium Chloride 250 mls @ 3,000 mls/hr 08/10/18 11:19 Normal Saline - IV 08/11/18 11:18 PRN PRN Hypotension during Dialysis Sodium Chloride 1,000 mls @ 42 mls/hr 08/09/18 14:45 08/09/18 19:21 Normal Saline - IV Not Given ASDIR TREVA Levetiracetam 250 mg 08/08/18 22:00 08/10/18 10:03 Keppra - PO 250 mg BID [facility] Administration Mirtazapine 30 mg 08/08/18 22:00 08/09/18 21:15 Remeron - PO 30 mg HS [facility]RE[facility] Administration Ondansetron HCl 4 mg 08/09/18 14:41 08/09/18 19:05 Zofran Injection IVPUSH 4 mg Q6H PRN Administration NAUSEA AND/OR VOMITING Phenytoin Sodium 200 mg 08/08/18 22:00 08/10/18 10:02 Dilantin - PO 200 mg BID [facility]RE[facility] Administration Promethazine HCl 12.5 mg 08/09/18 14:41 Phenergan Injection - IVPUSH Q6H PRN NAUSEA-FOR RESCUE AFTER 15 MIN Senna 1 tab 08/08/18 22:00 08/09/18 21:15 Senna - PO Not Given HS TREVA Sevelamer Carbonate 2.4 gm 08/08/18 17:30 08/10/18 12:54 Renvela Powder Packet - PO Not Given TIDCM [facility] Impression 1. ESRD 2. occluded graft 3. epilepsy 4. chronic resp failure on trache 5. HTN 6. hyperkalemia 7. anemia Plan - HD today - access repaired - citrate bath - epogen for anemia - will give a unit of blood - HD AVF, 3 hrs, 450 abf, regular dialyzer, 2k standard bath, aranesp 40, venofer 50 - pt has a heparin allergy
[2018-08-10 17:40] LABS: HBSAG SCREEN Negative (Negative); HEP B CORE AB, TOT Negative (Negative)
[2018-08-10] MEDS: SODIUM CHLORIDE 1,000 ML IV SCH (21:54)
[2018-08-10] MEDS: MIRTAZAPINE 30 MG TABLET (FP) PO SCH (22:01)
[2018-08-10] MEDS: SENNOSIDES 8.6MG TABLET (FP) PO SCH (22:01)
[2018-08-11] MEDS: ALBUTEROL SO4 0.083% IH SOL 2.5 MG/3 ML VIAL.NEB. NEB PRN (07:34)
[2018-08-11] MEDS: SEVELAMER CARBONATE 2.4 GM POWDER PACKET PO SCH ×2 (08:20→11:38)
[2018-08-11 08:25] LABS: HEMATOCRIT 26.8 % (32.4-45.2); MCH 30.8 pg (25.7-33.7); MCHC 33.4 g/dl (32.0-36.0); MEAN CELL VOLUME 92.2 fl (80-96); PLATELET COUNT 300 K/MM3 (134-434); RBC 2.91 M/mm3 (3.60-5.2); RDW 16.7 % (11.6-15.6); WHITE BLOOD COUNT 5.8 K/mm3 (4.0-10.0)
[2018-08-11 08:54] LABS: ALBUMIN 2.7 g/dl (3.4-5.0); ALK PHOS 192 U/L (45-117); ANION GAP 12 MMOL/L (8-16); BILIRUBIN,TOTAL 0.6 mg/dL (0.2-1); BLOOD UREA NITROGEN 36 mg/dL (7-18); CALCIUM 8.6 mg/dL (8.5-10.1); CHLORIDE 103 mmol/L (98-107); CO2 30 mmol/L (21-32); CREATININE 3.7 mg/dL (0.55-1.3); GLUCOSE,RANDOM 88 mg/dL (74-106); POTASSIUM 3.7 mmol/L (3.5-5.1); SGOT/AST 60 U/L (15-37); SGPT/ALT 99 U/L (13-61); SODIUM 145 mmol/L (136-145)
[2018-08-11] MEDS: PHENYTOIN NA EXTENDED 100 MG CAPSULE (FP) PO SCH (09:49)
[2018-08-11] MEDS: DOCUSATE SODIUM 100 MG CAPSULE (FP) PO SCH (09:49)
[2018-08-11] MEDS: amLODIPine BESYLATE 10 MG TABLET (FP) PO SCH (09:49)
[2018-08-11] MEDS: BUDESONIDE/FORMETEROL FUMARATE 160/4.5 mcg INHALER IH SCH (09:50)
[2018-08-11] MEDS: cloNIDine HCL 0.1 MG TABLET PO SCH (09:50)
[2018-08-11] MEDS: clonazePAM 0.5 MG TABLET PO SCH (09:50)
[2018-08-11] MEDS: hydrALAZINE HCL 50 MG TABLET (FP) PO SCH (09:50)
[2018-08-11] MEDS: levETIRAcetam 250 MG TABLET (FP) PO SCH (09:50)
--- NOTE | 2018-08-11 09:56 | PN ---
Progress Note, Physician History of Present Illness: Pt seen and examined at bedside. She is awake and alert. She tolerated HD yesterday. - Current Medication List Current Medications: Active Medications Acetaminophen (Tylenol -) 650 mg PO Q6H PRN PRN Reason: PAIN LEVEL 1-5 Albuterol Sulfate (Ventolin 0.083% Nebulizer Soln -) 1 amp NEB Q4H PRN PRN Reason: SHORT OF BREATH/WHEEZING Last Admin: 08/11/18 07:34 Dose: 1 amp Albuterol Sulfate (Ventolin 0.083% Nebulizer Soln -) 1 amp NEB Q6H PRN PRN Reason: ASTHMA Amlodipine Besylate (Norvasc -) 10 mg PO DAILY [facility] Last Admin: 08/10/18 10:05 Dose: 10 mg Budesonide/Formoterol Fumarate (Symbicort 160/4.5mcg -) 2 puff IH BID [facility] Last Admin: 08/10/18 21:55 Dose: 2 puff Clonazepam (Klonopin -) 0.5 mg PO BID [facility] Last Admin: 08/10/18 22:01 Dose: 0.5 mg Clonidine (Catapres -) 0.1 mg PO DAILY [facility] Last Admin: 08/10/18 10:04 Dose: 0.1 mg Docusate Sodium (Colace -) 300 mg PO DAILY [facility] Last Admin: 08/10/18 10:52 Dose: Not Given Fentanyl (Sublimaze Injection -) 50 mcg IVPUSH [id number] PRN PRN Reason: PAIN-PACU ORDER X 4 DOSES ONLY Hydralazine HCl (Apresoline -) 50 mg PO DAILY [facility] Last Admin: 08/10/18 10:04 Dose: 50 mg Sodium Chloride (Normal Saline -) 250 mls @ 3,000 mls/hr IV PRN PRN PRN Reason: Hypotension during Dialysis Stop: 08/11/18 11:18 Sodium Chloride (Normal Saline -) 1,000 mls @ 42 mls/hr IV ASDIR [facility] Last Admin: 08/10/18 21:54 Dose: Not Given Levetiracetam (Keppra -) 250 mg PO BID [facility] Last Admin: 08/10/18 22:01 Dose: 250 mg Mirtazapine (Remeron -) 30 mg PO HS [facility] Last Admin: 08/10/18 22:01 Dose: 30 mg Ondansetron HCl (Zofran Injection) 4 mg IVPUSH Q6H PRN PRN Reason: NAUSEA AND/OR VOMITING Last Admin: 08/09/18 19:05 Dose: 4 mg Phenytoin Sodium (Dilantin -) 200 mg PO BID [facility] Last Admin: 08/10/18 22:01 Dose: 200 mg Promethazine HCl (Phenergan Injection -) 12.5 mg IVPUSH Q6H PRN PRN Reason: NAUSEA-FOR RESCUE AFTER 15 MIN Senna (Senna -) 1 tab PO HS [facility] Last Admin: 08/10/18 22:01 Dose: Not Given Sevelamer Carbonate (Renvela Powder Packet -) 2.4 gm PO TIDCM [facility] Last Admin: 08/10/18 16:55 Dose: 2.4 gm - Objective Vital Signs: Vital Signs Temperature 98.5 F 08/11/18 06:00 Pulse Rate 75 08/11/18 07:33 Respiratory Rate 18 08/11/18 06:00 Blood Pressure 143/71 08/11/18 06:00 O2 Sat by Pulse Oximetry (%) 96 08/11/18 07:33 Constitutional: Yes: Calm HENT: Yes: Other (trache) Cardiovascular: Yes: S1, S2 Respiratory: Yes: Wheezes Gastrointestinal: Yes: Soft Genitourinary: Yes: Incontinence Musculoskeletal: Yes: WNL Edema: No Neurological: Yes: Oriented Psychiatric: Yes: Oriented Labs: CBC, BMP 08/11/18 07:55 08/11/18 07:55 Problem List - Problems (1) HTN (hypertension) Code(s): I10 - ESSENTIAL (PRIMARY) HYPERTENSION (2) Anemia Code(s): D64.9 - ANEMIA, UNSPECIFIED (3) Dialysis catheter clot or failure Code(s): [id number] - (4) AV fistula occlusion Code(s): T82.898A - OTH COMPLICATION OF VASCULAR PROSTH DEV/GRFT, INIT Qualifiers: Encounter type: initial encounter Qualified Code(s): T82.898A - Other specified complication of vascular prosthetic devices, implants and grafts, initial encounter (5) ESRD (end stage renal disease) on dialysis Code(s): N18.6 - END STAGE RENAL DISEASE; Z99.2 - DEPENDENCE ON RENAL DIALYSIS (6) Seizure disorder Code(s): G40.909 - EPILEPSY, UNSP, NOT INTRACTABLE, WITHOUT STATUS EPILEPTICUS (7) Tracheostomy dependent Code(s): Z93.0 - TRACHEOSTOMY STATUS Assessment/Plan Current Medications Generic Name Dose Route Start Last Admin Trade Name Freq PRN Reason Stop Dose Admin Acetaminophen 650 mg 08/07/18 23:53 Tylenol - PO Q6H PRN PAIN LEVEL 1-5 Albuterol Sulfate 1 amp 08/08/18 04:07 08/11/18 07:34 Ventolin 0.083% Nebulizer Soln - NEB 1 amp Q4H PRN Administration SHORT OF BREATH/WHEEZING Albuterol Sulfate 1 amp 08/08/18 14:11 Ventolin 0.083% Nebulizer Soln - NEB Q6H PRN ASTHMA Amlodipine Besylate 10 mg 08/08/18 14:15 08/11/18 09:49 Norvasc - PO 10 mg DAILY [facility] Administration Budesonide/Formoterol Fumarate 2 puff 08/08/18 22:00 08/11/18 09:50 Symbicort 160/4.5mcg - IH 2 puff BID [facility] Administration Clonazepam 0.5 mg 08/08/18 14:00 08/11/18 09:50 Klonopin - PO 0.5 mg BID [facility] Administration Clonidine 0.1 mg 08/08/18 14:15 08/11/18 09:50 Catapres - PO 0.1 mg DAILY [facility] Administration Docusate Sodium 300 mg 08/08/18 14:15 08/11/18 09:49 Colace - PO 300 mg DAILY [facility] Administration Fentanyl 50 mcg 08/09/18 14:41 Sublimaze Injection - IVPUSH [id number] PRN PAIN-PACU ORDER X 4 DOSES ONLY Hydralazine HCl 50 mg 08/08/18 14:15 08/11/18 09:50 Apresoline - PO 50 mg DAILY [facility] Administration Sodium Chloride 250 mls @ 3,000 mls/hr 08/10/18 11:19 Normal Saline - IV 08/11/18 11:18 PRN PRN Hypotension during Dialysis Sodium Chloride 1,000 mls @ 42 mls/hr 08/09/18 14:45 08/10/18 21:54 Normal Saline - IV Not Given ASDIR [facility] Levetiracetam 250 mg 08/08/18 22:00 08/11/18 09:50 Keppra - PO 250 mg BID [facility] Administration Mirtazapine 30 mg 08/08/18 22:00 08/10/18 22:01 Remeron - PO 30 mg HS [facility] Administration Ondansetron HCl 4 mg 08/09/18 14:41 08/09/18 19:05 Zofran Injection IVPUSH 4 mg Q6H PRN Administration NAUSEA AND/OR VOMITING Phenytoin Sodium 200 mg 08/08/18 22:00 08/11/18 09:49 Dilantin - PO 200 mg BID [facility] Administration Promethazine HCl 12.5 mg 08/09/18 14:41 Phenergan Injection - IVPUSH Q6H PRN NAUSEA-FOR RESCUE AFTER 15 MIN Senna 1 tab 08/08/18 22:00 08/10/18 22:01 Senna - PO Not Given HS [facility] Sevelamer Carbonate 2.4 gm 08/08/18 17:30 08/11/18 08:20 Renvela Powder Packet - PO 2.4 gm TIDCM [facility] Administration Impression 1. ESRD 2. occluded graft 3. epilepsy 4. chronic resp failure on trache 5. HTN 6. hyperkalemia 7. anemia Plan - pt tolerated HD yesterday - can be dialyzed tomorrow in [facility] - access repaired and is functional - citrate bath - epogen for anemia - hg is improved, she received a unit of blood - discussed with medical team - HD AVF, 3 hrs, 450 abf, regular dialyzer, 2k standard bath, aranesp 40, venofer 50 - pt has a heparin allergy
[2018-08-11 10:01] VITALS: BP 149/67; PULSE 73; TEMP 98.6
--- NOTE | 2018-08-11 11:07 | DS ---
Physical Examination Vital Signs: Vital Signs Temperature 98.6 F 08/11/18 10:00 Pulse Rate 73 08/11/18 10:00 Respiratory Rate 18 08/11/18 10:00 Blood Pressure 149/67 08/11/18 10:00 O2 Sat by Pulse Oximetry (%) 96 08/11/18 07:33 Findings/Remarks: patient seen and examined. Chart reviewed. Comfortable. No complaints. had successful dialysis yesterday Constitutional: Yes: No Distress, Calm Eyes: Yes: Conjunctiva Clear HENT: Yes: Other (Status post trach) Neck: Yes: Supple Cardiovascular: Yes: Regular Rate and Rhythm Respiratory: Yes: Diminished Gastrointestinal: Yes: Soft Edema: No Neurological: Yes: Alert Psychiatric: Yes: Alert Labs: CBC, BMP 08/11/18 07:55 08/11/18 07:55 Discharge Summary Reason For Visit: DIALYSIS CATHETER CLOT/HYPERKALEMIA Current Active Problems Anemia (Acute) Dialysis catheter clot or failure (Acute) HTN (hypertension) (Acute) Hospital Course: This is a 58 year old female with a significant past medical history of ESRD on dialysis MWF who presented to the ED from her dialysis center for nonfunctional AV graft. She denies other complaints and reports feeling well. ER course was notable for: (1) K 6.8 (2) Hgb 7.6 AV graft repair successful dialysis Last dialysis was yesterday Will discharge back to long-term today to be dialyzed tomorrow Discussed with vice president planning today Discussed with nursing staff also Medications reconciled Patient also in agreement with the plan. Condition: Good - Instructions Disposition: [facility] - Home Medications Comprehensive Discharge Medication List: Ambulatory Orders Acetylcysteine Po/INH 20% [Mucomyst 20 Oral / INH Use Only*] 200 mg NEB RQID vial 06/24/18 Amlodipine Besylate [Norvasc -] 10 mg PO DAILY tablet 06/24/18 Budesonide/Formeterol Fumarate [SYMBICORT 160/4.5mcg -] 2 puff IH BID inhaler 06/24/18 Phenytoin Na Extended [Dilantin -] 200 mg PO BID capsule 06/24/18 Sevelamer Carbonate [Renvela Powder Packet -] 2.4 gm PO TIDCM powd.pack hydrALAZINE HCL [Apresoline -] 50 mg PO DAILY tablet 06/24/18 levETIRAcetam [Keppra -] 250 mg PO BID tablet 06/24/18 Acetaminophen 325 mg PO PRN 07/05/18 Docusate Sodium [Colace] 300 mg PO DAILY 07/05/18 Darbepoetin Raymond in Polysorbat [Aranesp] 40 mcg IJ MONTHLY 08/07/18 Iron Sucrose Complex [Venofer] 50 mg IV WEEKLY 08/07/18 Mirtazapine [Remeron -] 30 mg PO DAILY 08/07/18 Sennosides [Senna] 8.6 mg PO HS 08/07/18 Albuterol 0.083% Nebulizer Liza [Ventolin 0.083% Nebulizer Soln -] 2.5 mg NEB RQID 08/08/18 Dextromethorphan HBr/Quinidine [Nuedexta 20-10 mg Capsule] 1 each PO BID Silver Sulfadiazine 1% Top Cr [Silvadene -] 1 applic TP PRN 08/08/18 Vit B Comp No.3/Folic/C/Biotin [Diana-Denny Rx Tablet] 1 each PO DAILY 08/08/18 cloNIDine HCL [Catapres -] 0.1 mg PO DAILY 08/08/18 clonazePAM [Klonopin -] 0.5 mg PO BID 08/08/18
== END 2018-08-11 14:02 ==
LOC: JER 15:18 → JERBED 19:44 → J4S 08-08 02:28 → JERBED 08-08 12:26 → J4S 08-08 12:28
PROVIDERS: ADMIT Internal Medicine; ATTEND Internal Medicine
PROC: 0JHL3XZ Insertion of Tunneled Vascular Access Device into Right Upper Leg Subcutaneous Tissue and Fascia, Percutaneous Approach (ICD-10-PCS; principal; 2018-08-07)
PROC: 06HM33Z Insertion of Infusion Device into Right Femoral Vein, Percutaneous Approach (ICD-10-PCS; 2018-08-07)
PROC: 05CC3ZZ Extirpation of Matter from Left Basilic Vein, Percutaneous Approach (ICD-10-PCS; 2018-08-07)
PROC: 3E03329 Introduction of Other Anti-infective into Peripheral Vein, Percutaneous Approach (ICD-10-PCS; 2018-08-07)
PROC: 3E033NZ Introduction of Analgesics, Hypnotics, Sedatives into Peripheral Vein, Percutaneous Approach (ICD-10-PCS; 2018-08-07)
PROC: 3E033GC Introduction of Other Therapeutic Substance into Peripheral Vein, Percutaneous Approach (ICD-10-PCS; 2018-08-07)
PROC: 3E033VG Introduction of Insulin into Peripheral Vein, Percutaneous Approach (ICD-10-PCS; 2018-08-07)
PROC: 3E0F7GC Introduction of Other Therapeutic Substance into Respiratory Tract, Via Natural or Artificial Opening (ICD-10-PCS; 2018-08-07)
PROC: 06PY33Z Removal of Infusion Device from Lower Vein, Percutaneous Approach (ICD-10-PCS; 2018-08-08)
PROC: 06HM33Z Insertion of Infusion Device into Right Femoral Vein, Percutaneous Approach (ICD-10-PCS; 2018-08-08)
DX: T82.898A Other specified complication of vascular prosthetic devices, implants and grafts, initial encounter (principal); I12.0 Hypertensive chronic kidney disease with stage 5 chronic kidney disease or end stage renal disease; N18.6 End stage renal disease; Z99.2 Dependence on renal dialysis; D46.4 Refractory anemia, unspecified; I25.10 Atherosclerotic heart disease of native coronary artery without angina pectoris; J96.10 Chronic respiratory failure, unspecified whether with hypoxia or hypercapnia; I25.2 Old myocardial infarction; E78.5 Hyperlipidemia, unspecified; E87.5 Hyperkalemia; F41.9 Anxiety disorder, unspecified; Z93.0 Tracheostomy status
CPT/HCPCS: 36415; 36430; 71045-TC-FY; 80048; 80053; 83735; 84100; 85025; 85027; 86704; 86706; 86708; 86803; 86850; 86900; 86901; 86922; 87340; 93005; 93010; 93971; 94640; 94760; 96365; 96375; 96376; 99284-25; G0378; J0131; J0735; J0885; J1756; P9038; P9058

== ENCOUNTER 2018-09-22 18:30 | Inpatient (IN) | payer OTHER ==
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
[2018-09-22 19:26] VITALS: BMI 23.8
--- NOTE | 2018-09-22 20:03 | PDOC ---
History of Present Illness - General Chief Complaint: Dialysis Shunt Problem Stated Complaint: DIALYSIS Time Seen by Provider: 09/22/18 18:49 - History of Present Illness Initial Comments: Winsome Mi is a 58yo woman with a PMH of seizure disorder, asthma, HTN, dysphasia, ESRD (M/W/F dialysis) who presents with inability to access her dialysis fistula. She reports that her dialysis is on MWF, and she had her entire dialysis session on Tuesday without any issues. Today, they were unable to access the fistula. She is not sure at what point it stopped functioning as she did not check it after her dialysis two days ago. Ms Mi denies any other current complaints and states that she has been feeling well otherwise. She says that she is allergic to heparin and so keeps having difficulty with her fistula clotting. She reports that Dr Paz has had to intervene on her fistula several times this year. Past History - Past Medical History Allergies/Adverse Reactions: Allergies Allergy/AdvReac Type Severity Reaction Status Date / Time SHAHBAZ Inhibitors Allergy Verified 09/22/18 18:58 codeine Allergy Verified 09/22/18 18:58 diphenhydramine Allergy Verified 09/22/18 18:58 [From Benadryl] heparin Allergy Verified 09/22/18 18:58 lisinopril Allergy Verified 09/22/18 18:58 Home Medications: Ambulatory Orders Acetylcysteine Po/INH 20% [Mucomyst 20 Oral / INH Use Only*] 200 mg NEB RQID vial 06/24/18 Amlodipine Besylate [Norvasc -] 10 mg PO DAILY tablet 06/24/18 Budesonide/Formeterol Fumarate [SYMBICORT 160/4.5mcg -] 2 puff IH BID inhaler 06/24/18 Phenytoin Na Extended [Dilantin -] 200 mg PO BID capsule 06/24/18 Sevelamer Carbonate [Renvela Powder Packet -] 2.4 gm PO TIDCM powd.pack hydrALAZINE HCL [Apresoline -] 50 mg PO DAILY tablet 06/24/18 levETIRAcetam [Keppra -] 250 mg PO BID tablet 06/24/18 Acetaminophen 325 mg PO PRN 07/05/18 Docusate Sodium [Colace] 300 mg PO DAILY 07/05/18 Darbepoetin Raymond in Polysorbat [Aranesp] 40 mcg IJ MONTHLY 08/07/18 Iron Sucrose Complex [Venofer] 50 mg IV WEEKLY 08/07/18 Mirtazapine [Remeron -] 30 mg PO DAILY 08/07/18 Sennosides [Senna] 8.6 mg PO HS 08/07/18 Albuterol 0.083% Nebulizer Liza [Ventolin 0.083% Nebulizer Soln -] 2.5 mg NEB RQID 08/08/18 Dextromethorphan HBr/Quinidine [Nuedexta 20-10 mg Capsule] 1 each PO BID Silver Sulfadiazine 1% Top Cr [Silvadene -] 1 applic TP PRN 08/08/18 Vit B Comp No.3/Folic/C/Biotin [Diana-Denny Rx Tablet] 1 each PO DAILY 08/08/18 cloNIDine HCL [Catapres -] 0.1 mg PO DAILY 08/08/18 clonazePAM [Klonopin -] 0.5 mg PO BID 08/08/18 Anemia: Yes (refractory anemia) Asthma: Yes Cardiac Disorders: Yes (SC(2017) with subsequent coma [id number]) COPD: Yes CHF: Yes GI Disorders: Yes (peg tube) Disorders: Yes (Htn chronic kid dx,renal osteodystrophy) HTN: Yes Psychiatric Problems: Yes (anxiety) Seizures: Yes (epilepsy,essential tremor) - Surgical History Abdominal Surgery: Yes (PEG with reversal) GI Surgery: Yes (peg tube) - Suicide/Smoking/Psychosocial Hx Smoking History: Unknown if ever smoked Have you smoked in the past 12 months: No Number of Cigarettes Smoked Daily: 40 If you are a former smoker, when did you quit?: 2017 'Breaking Loose' booklet given: 06/23/18 Hx Alcohol Use: No Drug/Substance Use Hx: No Hx Substance Use Treatment: No Review of Systems - Review of Systems Comments:: Limited, pt unable to verbalize speech or write *Physical Exam - Vital Signs Last Vital Signs Temp Pulse Resp BP Pulse Ox 98 F 84 18 134/60 99 09/22/18 18:59 09/22/18 18:59 09/22/18 18:59 09/22/18 18:59 09/22/18 18:59 - Physical Exam Comments: General: Comfortable, no acute distress HEENT: PERRL, EOMI, MMM, Trach in place Cards: RRR Pulm: Via trach, comfortable with supplemental O2, CTAB Abd: Soft, nontender, nondistended Ext: Atraumatic. LUE with AVF, no palpable thrill, no bruit, feels firm to touch. Moves all extremities. Intention tremor in BUE Vasc: Extremities WWP. Skin: Normal color, no lesions Neuro: A&Ox3, CN grossly intact, motor/sensory grossly intact and symmetric Psych: Mood appropriate to situation Moderate Sedation - Procedure Monitoring Vital Signs: Procedure Monitoring Vital Signs Temperature 98 F 09/22/18 18:59 Pulse Rate 84 09/22/18 18:59 Respiratory Rate 18 09/22/18 18:59 Blood Pressure 134/60 09/22/18 18:59 O2 Sat by Pulse Oximetry (%) 99 09/22/18 18:59 ED Treatment Course - LABORATORY CBC & Chemistry Diagram: 09/22/18 20:15 09/22/18 20:15 - RADIOLOGY Radiology Studies Ordered: Category Date Time Status CXRPORT [CHEST X-RAY PORTABLE*] [RAD] Stat Radiology 09/22/18 19:24 Ordered DUPLEX HEMODIALYSIS ACCESS [VASC] Stat Vascular 09/22/18 19:25 Ordered Medical Decision Making - Medical Decision Making 09/22/18 19:45 Winsome Mi is a 58yo woman with a PMH of seizure disorder, asthma, HTN, dysphasia, ESRD (M/W/F dialysis) who presents with inability to access her dialysis fistula. - Fistula appears to be clotted; unknown at what point this occurred after dialysis on Tuesday - Pt missed dialysis today. Will check CMP to r/o electrolyte abnormalities or significantly elevated BUN; though this is less concerning given no altered mentation - CBC to evaluate for abnormalities - PT/PTT as pt will most likely need intervention - EKG to check for abnormalities 2/2 missing dialysis today - CXR to evaluate for fluid overload, acute abnormalities 09/22/18 21:44 - Labs notable for potassium 5.2, phos 6.0, BUN 87. No need for emergent dialysis, but will likely need to trend and may need dialysis over the weekend. - Spoke with Dr Tang regarding thrombosed AVF; as Dr Paz has operated on Ms Mi several times, requested to contact him instead - Spoke to Dr Paz to update him regarding Ms Mi. He is not motion picture set grip today, but he will see her during her admission. - Microblog to hospitalist team for admission Seen and discussed with Dr Mahoney. Vanessa Drake PGY1 *DC/Admit/Observation/Transfer Diagnosis at time of Disposition: AV fistula occlusion - Discharge Dispostion Decision to Admit order: Yes - Referrals Referrals: Garcia Edmonds MD [Primary Care Provider] - - Patient Instructions - Post Discharge Activity
[2018-09-22 20:39] LABS: BASO % 0.4 % (0-2.0); EOS % 2.6 % (0-4.5); HEMATOCRIT 24.5 % (32.4-45.2); HEMOGLOBIN 8.6 GM/dL (10.7-15.3); LYMPH % 10.5 % (8-40); MCHC 35.1 g/dl (32.0-36.0); MEAN CELL VOLUME 96.9 fl (80-96); MONO % 6.9 % (3.8-10.2); NEUT % 79.6 % (42.8-82.8); PLATELET COUNT 257 K/MM3 (134-434); RBC 2.53 M/mm3 (3.60-5.2); RDW 16.7 % (11.6-15.6); WHITE BLOOD COUNT 7.5 K/mm3 (4.0-10.0)
[2018-09-22 20:55] LABS: PROTHROMBIN TIME (PATIENT) 11.8 SEC (9.7-13.0)
[2018-09-22 20:57] LABS: ACTIVATED PTT 23.8 SECONDS (25.2-36.5)
[2018-09-22 21:09] LABS: ALBUMIN 3.1 g/dl (3.4-5.0); ALK PHOS 134 U/L (45-117); ANION GAP 12 MMOL/L (8-16); BILIRUBIN,TOTAL 0.3 mg/dL (0.2-1); BLOOD UREA NITROGEN 87 mg/dL (7-18); CALCIUM 8.9 mg/dL (8.5-10.1); CHLORIDE 95 mmol/L (98-107); CO2 25 mmol/L (21-32); CREATININE 5.7 mg/dL (0.55-1.3); GLUCOSE,RANDOM 73 mg/dL (74-106); MAGNESIUM 2.7 mg/dL (1.8-2.4); POTASSIUM 5.2 mmol/L (3.5-5.1); SGOT/AST 23 U/L (15-37); SGPT/ALT 13 U/L (13-61); SODIUM 133 mmol/L (136-145); TOT PROT 6.5 g/dl (6.4-8.2)
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
[2018-09-23 10:36] LABS: BASO % 0.6 % (0-2.0); HEMATOCRIT 24.7 % (32.4-45.2); HEMOGLOBIN 8.6 GM/dL (10.7-15.3); LYMPH % 13.5 % (8-40); MCH 33.8 pg (25.7-33.7); MCHC 34.6 g/dl (32.0-36.0); MEAN CELL VOLUME 97.5 fl (80-96); MONO % 9.3 % (3.8-10.2); NEUT % 73.6 % (42.8-82.8); PLATELET COUNT 275 K/MM3 (134-434); RBC 2.53 M/mm3 (3.60-5.2); RDW 16.5 % (11.6-15.6); WHITE BLOOD COUNT 6.4 K/mm3 (4.0-10.0)
[2018-09-23] MEDS: clonazePAM 0.5 MG TABLET PO SCH ×2 (10:36→21:33)
[2018-09-23] MEDS: hydrALAZINE HCL 50 MG TABLET (FP) PO SCH (10:37)
[2018-09-23] MEDS: amLODIPine BESYLATE 10 MG TABLET (FP) PO SCH (10:37)
[2018-09-23] MEDS: levETIRAcetam 250 MG TABLET (FP) PO SCH ×2 (10:37→21:32)
[2018-09-23] MEDS: cloNIDine HCL 0.1 MG TABLET PO SCH (10:37)
[2018-09-23] MEDS: CARBIDOPA/LEVODOPA 25/100 TABLET (FP) PO SCH ×3 (10:37→21:32)
[2018-09-23 11:01] LABS: PROTHROMBIN TIME (PATIENT) 11.8 SEC (9.7-13.0)
[2018-09-23 11:15] LABS: ANION GAP 14 MMOL/L (8-16); BLOOD UREA NITROGEN 90 mg/dL (7-18); CALCIUM 9.1 mg/dL (8.5-10.1); CHLORIDE 97 mmol/L (98-107); CO2 24 mmol/L (21-32); CREATININE 6.4 mg/dL (0.55-1.3); GLUCOSE,RANDOM 85 mg/dL (74-106); POTASSIUM 5.2 mmol/L (3.5-5.1); SODIUM 135 mmol/L (136-145)
[2018-09-23] MEDS: [UNRECOGNIZED DRUG - OTHER] PO SCH ×2 (12:12→21:55)
[2018-09-23] MEDS: DEXTROMETHORPHAN HBR PO SCH ×2 (12:12→21:55)
[2018-09-23] MEDS: QUINIDINE PO SCH ×2 (12:12→21:55)
[2018-09-23] MEDS: BUDESONIDE/FORMETEROL FUMARATE 160/4.5 mcg INHALER IH SCH ×2 (12:39→21:34)
[2018-09-23] MEDS: PHENYTOIN NA EXTENDED 100 MG CAPSULE (FP) PO SCH ×2 (12:39→21:32)
--- NOTE | 2018-09-23 14:50 | PN ---
Progress Note (short form) - Note Progress Note: EVents noted No SOB Was last dialysed on Tuesday Vital Signs - 24 hr 09/22/18 09/22/18 09/22/18 18:59 19:10 23:21 Temperature 98 F 98.0 F 98.0 F Pulse Rate 84 Pulse Rate [ 84 82 Right] Respiratory 18 18 18 Rate Blood Pressure 134/60 Blood Pressure 134/62 132/68 [Right] O2 Sat by Pulse 99 100 98 Oximetry (%) 09/23/18 09/23/18 09/23/18 04:25 04:34 06:00 Temperature 97.1 F L 98.9 F Pulse Rate 71 69 Pulse Rate [ Right] Respiratory 20 20 20 Rate Blood Pressure 146/64 135/68 Blood Pressure [Right] O2 Sat by Pulse Oximetry (%) 09/23/18 09:00 Temperature 98.6 F Pulse Rate 64 Pulse Rate [ Right] Respiratory 20 Rate Blood Pressure 147/65 Blood Pressure [Right] O2 Sat by Pulse Oximetry (%) Current Medications Generic Name Dose Route Start Last Admin Trade Name Freq PRN Reason Stop Dose Admin Albuterol Sulfate 1 amp 09/23/18 09:34 Ventolin 0.083% Nebulizer Soln - NEB RQID TREVA Amlodipine Besylate 10 mg 09/23/18 10:00 09/23/18 10:37 Norvasc - PO 10 mg DAILY TREVA Administration Budesonide/Formoterol Fumarate 2 puff 09/23/18 10:00 09/23/18 12:39 Symbicort 160/4.5mcg - IH 2 puff BID TREVA Administration Carbidopa/Levodopa 1 each 09/23/18 09:40 09/23/18 10:37 Sinemet 25/100 - PO 1 each TID TREVA Administration Clonazepam 0.5 mg 09/23/18 10:00 09/23/18 10:36 Klonopin - PO 0.5 mg BID TREVA Administration Clonidine 0.1 mg 09/23/18 10:00 09/23/18 10:37 Catapres - PO 0.1 mg DAILY TREVA Administration Hydralazine HCl 50 mg 09/23/18 10:00 09/23/18 10:37 Apresoline - PO 50 mg DAILY TREVA Administration Levetiracetam 250 mg 09/23/18 10:00 09/23/18 10:37 Keppra - PO 250 mg BID TREVA Administration Mirtazapine 15 mg 09/23/18 22:00 Remeron - PO HS TREVA Non-Formulary Medication 200 mg 09/23/18 12:00 Acetylcysteine Po/Inh 20% NEB RQID TREVA Non-Formulary Medication 1 each 09/23/18 10:00 09/23/18 12:12 Dextromethorphan Hbr/Quinidine [Nuedexta 20-10 Mg Capsule] PO Not Given BID TREVA Pantoprazole Sodium 40 mg 09/23/18 12:30 Protonix - PO DAILY TREVA Phenytoin Sodium 200 mg 09/23/18 10:00 09/23/18 12:39 Dilantin - PO 200 mg BID TREVA Administration Senna 1 tab 09/23/18 22:00 Senna - PO HS TREVA Laboratory Results - last 24 hr 09/22/18 09/22/18 09/22/18 20:15 20:15 20:15 WBC 7.5 RBC 2.53 L Hgb 8.6 L Hct 24.5 L MCV 96.9 H MCH 34.0 H D MCHC 35.1 RDW 16.7 H Plt Count 257 MPV 7.0 L Absolute Neuts (auto) 6.0 Neutrophils % 79.6 Lymphocytes % 10.5 D Monocytes % 6.9 Eosinophils % 2.6 Basophils % 0.4 Nucleated RBC % 0 PT with INR 11.80 INR 1.00 PTT (Actin FS) 23.8 L Sodium 133 L Potassium 5.2 H Chloride 95 L Carbon Dioxide 25 Anion Gap 12 BUN 87 H Creatinine 5.7 H Creat Clearance w eGFR 7.59 Random Glucose 73 L Calcium 8.9 Phosphorus 6.0 H Magnesium 2.7 H Total Bilirubin 0.3 AST 23 ALT 13 Alkaline Phosphatase 134 H Total Protein 6.5 Albumin 3.1 L Phenytoin 09/23/18 09/23/18 09/23/18 10:00 10:00 10:00 WBC 6.4 RBC 2.53 L Hgb 8.6 L Hct 24.7 L MCV 97.5 H MCH 33.8 H MCHC 34.6 RDW 16.5 H Plt Count 275 MPV 7.0 L Absolute Neuts (auto) 4.7 Neutrophils % 73.6 Lymphocytes % 13.5 D Monocytes % 9.3 Eosinophils % 3.0 Basophils % 0.6 Nucleated RBC % 0 PT with INR 11.80 INR 1.00 PTT (Actin FS) Sodium 135 L Potassium 5.2 H Chloride 97 L Carbon Dioxide 24 Anion Gap 14 BUN 90 H Creatinine 6.4 H Creat Clearance w eGFR 6.64 Random Glucose 85 Calcium 9.1 Phosphorus Magnesium Total Bilirubin AST ALT Alkaline Phosphatase Total Protein Albumin Phenytoin 09/23/18 10:00 WBC RBC Hgb Hct MCV MCH MCHC RDW Plt Count MPV Absolute Neuts (auto) Neutrophils % Lymphocytes % Monocytes % Eosinophils % Basophils % Nucleated RBC % PT with INR INR PTT (Actin FS) Sodium Potassium Chloride Carbon Dioxide Anion Gap BUN Creatinine Creat Clearance w eGFR Random Glucose Calcium Phosphorus Magnesium Total Bilirubin AST ALT Alkaline Phosphatase Total Protein Albumin Phenytoin 12.6 S1 S2 RRR Lungs decraesed Trach collar Abd- soft, NT No edema Left AVF-- no thrill or bruit PLAN -contacted Vascular- plan for declotting tomorrow -Check labs tomorrow - not in volume overload currently -- renal eval -- for OR in AM Problem List - Problems (1) AV fistula occlusion Code(s): T82.898A - [facility] COMPLICATION OF VASCULAR PROSTH DEV/GRFT, INIT (2) Anemia Code(s): D64.9 - ANEMIA, UNSPECIFIED (3) Dialysis catheter clot or failure Code(s): QCS9349 - (4) ESRD (end stage renal disease) on dialysis Code(s): N18.6 - END STAGE RENAL DISEASE; Z99.2 - DEPENDENCE ON RENAL DIALYSIS (5) HTN (hypertension) Code(s): I10 - ESSENTIAL (PRIMARY) HYPERTENSION (6) Tracheostomy dependent Code(s): Z93.0 - TRACHEOSTOMY STATUS
[2018-09-23] MEDS: PANTOPRAZOLE 40 MG TABLET (FP) PO SCH (14:58)
[2018-09-23] MEDS: ALBUTEROL SO4 0.083% IH SOL 2.5 MG/3 ML VIAL.NEB. NEB SCH ×3 (15:52→20:30)
--- NOTE | 2018-09-23 16:12 | CONSULT ---
Consult Consult Specialty:: Nephrology Reason for Consultation:: ESRD - History of Present Illness Chief Complaint: clotted fistula History of Present Illness: Pt is a 58 year old female with pmhx of ESRD and chronic resp failure who was sent in for a clotted avf. She last went to HD on Tuesday. She is awake and alert. She denies shortness of breath or palpitations. She denies fevers or chills. She has previous admissions for a clotted avf. 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: Yes: Seizure Cardio/Vascular: Yes: HTN, Hyperlipdemia Renal/: Yes: Renal Failure, Hemodialysis - Past Surgical History Past Surgical History: Yes: AV Fistula/Graft - Alcohol/Substance Use Hx Alcohol Use: No - Smoking History Smoking history: Unknown if ever smoked Have you smoked in the past 12 months: No Aproximately how many cigarettes per day: 40 If you are a former smoker, when did you quit?: 2017 - Social History ADL: Support Services History of Recent Travel: No Home Medications - Allergies Allergies/Adverse Reactions: Allergies Allergy/AdvReac Type Severity Reaction Status Date / Time SHAHBAZ Inhibitors Allergy Verified 09/22/18 18:58 codeine Allergy Verified 09/22/18 18:58 diphenhydramine Allergy Verified 09/22/18 18:58 [From Benadryl] heparin Allergy Verified 09/22/18 18:58 lisinopril Allergy Verified 09/22/18 18:58 - Home Medications Home Medications: Ambulatory Orders Acetylcysteine Po/INH 20% [Mucomyst 20 Oral / INH Use Only*] 200 mg NEB RQID vial 06/24/18 Amlodipine Besylate [Norvasc -] 10 mg PO DAILY tablet 06/24/18 Budesonide/Formeterol Fumarate [SYMBICORT 160/4.5mcg -] 2 puff IH BID inhaler 06/24/18 Phenytoin Na Extended [Dilantin -] 200 mg PO BID capsule 06/24/18 Sevelamer Carbonate [Renvela Powder Packet -] 2.4 gm PO TIDCM powd.pack hydrALAZINE HCL [Apresoline -] 50 mg PO DAILY tablet 06/24/18 levETIRAcetam [Keppra -] 250 mg PO BID tablet 06/24/18 Acetaminophen 325 mg PO PRN 07/05/18 Docusate Sodium [Colace] 300 mg PO DAILY 07/05/18 Darbepoetin Raymond in Polysorbat [Aranesp] 40 mcg IJ MONTHLY 08/07/18 Iron Sucrose Complex [Venofer] 50 mg IV WEEKLY 08/07/18 Mirtazapine [Remeron -] 30 mg PO DAILY 08/07/18 Sennosides [Senna] 8.6 mg PO HS 08/07/18 Albuterol 0.083% Nebulizer Liza [Ventolin 0.083% Nebulizer Soln -] 2.5 mg NEB RQID 08/08/18 Dextromethorphan HBr/Quinidine [Nuedexta 20-10 mg Capsule] 1 each PO BID Silver Sulfadiazine 1% Top Cr [Silvadene -] 1 applic TP PRN 08/08/18 Vit B Comp No.3/Folic/C/Biotin [Diana-Denny Rx Tablet] 1 each PO DAILY 08/08/18 cloNIDine HCL [Catapres -] 0.1 mg PO DAILY 08/08/18 clonazePAM [Klonopin -] 0.5 mg PO BID 08/08/18 Family Disease History - Family Disease History Family History: Denies Review of Systems - Review of Systems Constitutional: reports: No Symptoms Eyes: reports: No Symptoms HENT: reports: No Symptoms Neck: reports: No Symptoms Cardiovascular: reports: No Symptoms Respiratory: reports: No Symptoms Gastrointestinal: reports: No Symptoms Genitourinary: reports: No Symptoms Musculoskeletal: reports: No Symptoms Integumentary: reports: No Symptoms Neurological: reports: No Symptoms Endocrine: reports: No Symptoms Hematology/Lymphatic: reports: No Symptoms Physical Exam Vital Signs: Vital Signs Temperature 98.5 F 09/23/18 15:18 Pulse Rate 65 09/23/18 15:18 Respiratory Rate 20 09/23/18 15:18 Blood Pressure 122/60 09/23/18 15:18 O2 Sat by Pulse Oximetry (%) 98 09/22/18 23:21 Constitutional: Yes: Calm Eyes: Yes: Conjunctiva Clear HENT: Yes: Atraumatic Neck: Yes: Other (trache) Cardiovascular: Yes: S1, S2 Respiratory: Yes: CTA Bilaterally Gastrointestinal: Yes: Soft Musculoskeletal: Yes: Muscle Weakness Edema: No Neurological: Yes: Oriented Psychiatric: Yes: Oriented Labs: CBC, BMP 09/23/18 10:00 09/23/18 10:00 Imaging - Results Chest X-ray: Report Reviewed Problem List - Problems (1) AV fistula occlusion Code(s): T82.898A - [facility] COMPLICATION OF VASCULAR PROSTH DEV/GRFT, INIT (2) Anemia Code(s): D64.9 - ANEMIA, UNSPECIFIED (3) ESRD (end stage renal disease) on dialysis Code(s): N18.6 - END STAGE RENAL DISEASE; Z99.2 - DEPENDENCE ON RENAL DIALYSIS Assessment/Plan Current Medications Generic Name Dose Route Start Last Admin Trade Name Freq PRN Reason Stop Dose Admin Albuterol Sulfate 1 amp 09/23/18 09:34 09/23/18 15:53 Ventolin 0.083% Nebulizer Soln - NEB Not Given RQID TREVA Amlodipine Besylate 10 mg 09/23/18 10:00 09/23/18 10:37 Norvasc - PO 10 mg DAILY TREVA Administration Budesonide/Formoterol Fumarate 2 puff 09/23/18 10:00 09/23/18 12:39 Symbicort 160/4.5mcg - IH 2 puff BID TREVA Administration Carbidopa/Levodopa 1 each 09/23/18 09:40 09/23/18 15:56 Sinemet 25/100 - PO 1 each TID TREVA Administration Clonazepam 0.5 mg 09/23/18 10:00 09/23/18 10:36 Klonopin - PO 0.5 mg BID TREVA Administration Clonidine 0.1 mg 09/23/18 10:00 09/23/18 10:37 Catapres - PO 0.1 mg DAILY TREVA Administration Hydralazine HCl 50 mg 09/23/18 10:00 09/23/18 10:37 Apresoline - PO 50 mg DAILY TREVA Administration Levetiracetam 250 mg 09/23/18 10:00 09/23/18 10:37 Keppra - PO 250 mg BID TREVA Administration Mirtazapine 15 mg 09/23/18 22:00 Remeron - PO HS TREVA Non-Formulary Medication 200 mg 09/23/18 12:00 Acetylcysteine Po/Inh 20% NEB RQID TREVA Non-Formulary Medication 1 each 09/23/18 10:00 09/23/18 12:12 Dextromethorphan Hbr/Quinidine [Nuedexta 20-10 Mg Capsule] PO Not Given BID TREVA Pantoprazole Sodium 40 mg 09/23/18 12:30 09/23/18 14:58 Protonix - PO 40 mg DAILY TREVA Administration Phenytoin Sodium 200 mg 09/23/18 10:00 09/23/18 12:39 Dilantin - PO 200 mg BID TREVA Administration Senna 1 tab 09/23/18 22:00 Senna - PO HS TREVA Impression 1. ESRD 2. occluded graft 3. epilepsy 4. chronic resp failure on trache 5. HTN 6. hyperkalemia 7. anemia Plan - spoke to vascular, she is going for a thombectomy tomorrow - will arrange for HD tomorrow after access is established - will give a dose of lasix as this will help with potassium as well - npo past midnight - citrate bath on HD - epogen for anemia - HD AVF, 3 hrs, 450 abf, regular dialyzer, 2k standard bath, aranesp 40, venofer 50 - pt has a heparin allergy
[2018-09-23] MEDS ORDERED: FUROSEMIDE 40 MG/4 ML INJECTABLE VIAL IVPUSH ONE (16:14)
--- NOTE | 2018-09-23 21:23 | EKG ---
Test Reason : Blood Pressure : / mmHG Vent. Rate : 068 BPM Atrial Rate : 068 BPM P-R Int : 186 ms QRS Dur : 084 ms QT Int : 418 ms P-R-T Axes : 055 068 061 degrees QTc Int : 444 ms NORMAL SINUS RHYTHM NORMAL ECG WHEN COMPARED WITH ECG OF 07-AUG-2018 17:28, NO SIGNIFICANT CHANGE WAS FOUND Confirmed by АННА GARCIA MD ([id number]) on 09/23/2018 9:22:54 PM Referred By: Confirmed By:АННА GARCIA MD
[2018-09-23] MEDS ORDERED: MIRTAZAPINE 15 MG TABLET (FP) PO SCH (22:00)
[2018-09-23] MEDS ORDERED: SENNOSIDES 8.6MG TABLET (FP) PO SCH (22:00)
[2018-09-24] MEDS ORDERED: BENZOCAINE/MENTH/CETYLPYRD CL 1 EACH LOZENGE MM ONE (05:37)
[2018-09-24] MEDS: CARBIDOPA/LEVODOPA 25/100 TABLET (FP) PO SCH ×3 (05:55→22:47)
[2018-09-24] MEDS: ACETYLCYSTEINE NEB SCH (05:59)
[2018-09-24 08:11] LABS: BASO % 0.6 % (0-2.0); EOS % 3.9 % (0-4.5); HEMATOCRIT 25.3 % (32.4-45.2); HEMOGLOBIN 8.3 GM/dL (10.7-15.3); LYMPH % 16.2 % (8-40); MCH 32.2 pg (25.7-33.7); MCHC 32.7 g/dl (32.0-36.0); MEAN CELL VOLUME 98.6 fl (80-96); MEAN PLT VOLUME 6.9 fl (7.5-11.1); MONO % 9.8 % (3.8-10.2); NEUT % 69.5 % (42.8-82.8); PLATELET COUNT 245 K/MM3 (134-434); RBC 2.56 M/mm3 (3.60-5.2); RDW 16.3 % (11.6-15.6); WHITE BLOOD COUNT 5.3 K/mm3 (4.0-10.0)
[2018-09-24 08:44] LABS: ALK PHOS 133 U/L (45-117); ANION GAP 13 MMOL/L (8-16); BILIRUBIN,TOTAL 0.5 mg/dL (0.2-1); BLOOD UREA NITROGEN 101 mg/dL (7-18); CHLORIDE 98 mmol/L (98-107); CO2 24 mmol/L (21-32); GLUCOSE,RANDOM 83 mg/dL (74-106); POTASSIUM 5.5 mmol/L (3.5-5.1); SGOT/AST 21 U/L (15-37); SGPT/ALT 11 U/L (13-61); SODIUM 135 mmol/L (136-145); TOT PROT 6.2 g/dl (6.4-8.2)
[2018-09-24] MEDS: ALBUTEROL SO4 0.083% IH SOL 2.5 MG/3 ML VIAL.NEB. NEB SCH ×4 (09:08→19:12)
[2018-09-24 09:25] LABS: CREATININE 7.6 mg/dL (0.55-1.3)
[2018-09-24] MEDS ORDERED: MIDAZOLAM HCL 2 MG/2 ML SINGLE DOSE VIAL ONE ×5 (09:43→11:19)
[2018-09-24] MEDS ORDERED: PROPOFOL 20 ML ONE ×3 (10:00→11:06)
[2018-09-24] MEDS ORDERED: SODIUM CHLORIDE 0.9% P/F 10 ML VIAL IJ ONE (10:05)
[2018-09-24] MEDS ORDERED: ceFAZolin SODIUM 1 GM VIAL ONE (10:05)
[2018-09-24] MEDS ORDERED: LIDOCAINE HCL 1%, 10 MG/ML (20ML VIAL) INF ONE ×2 (10:15)
[2018-09-24] MEDS ORDERED: SODIUM CHLORIDE 250 ML IV PRN ×2 (10:28→11:49)
--- NOTE | 2018-09-24 11:42 | OP ---
Operative Note - Note: Operative Date: 09/24/18 Pre-Operative Diagnosis: Clotted left avg Operation: Venogram, suction thrombectomy, venoplasty left avg Findings: stent occlusion Post-Operative Diagnosis: Same as Pre-op Surgeon: Murali Paz Anesthesia: Fractional Estimated Blood Loss (mls): 50 Operative Report Dictated: Yes
[2018-09-24] MEDS ORDERED: ACETYLCYSTEINE NEB SCH (12:00)
[2018-09-24] MEDS ORDERED: PT OWN MED DRAWER 7, Y5N ONE ×2 (13:28→21:09)
[2018-09-24] MEDS: PHENYTOIN NA EXTENDED 100 MG CAPSULE (FP) PO SCH ×3 (14:15→22:48)
[2018-09-24] MEDS: BUDESONIDE/FORMETEROL FUMARATE 160/4.5 mcg INHALER IH SCH ×3 (14:16→22:47)
[2018-09-24] MEDS: levETIRAcetam 250 MG TABLET (FP) PO SCH ×3 (14:16→22:47)
[2018-09-24] MEDS: PANTOPRAZOLE 40 MG TABLET (FP) PO SCH ×2 (14:17→14:20)
[2018-09-24] MEDS: cloNIDine HCL 0.1 MG TABLET PO SCH ×2 (14:18→14:20)
[2018-09-24] MEDS: amLODIPine BESYLATE 10 MG TABLET (FP) PO SCH ×2 (14:18→14:20)
[2018-09-24] MEDS: hydrALAZINE HCL 50 MG TABLET (FP) PO SCH ×2 (14:18→14:19)
[2018-09-24] MEDS: DEXTROMETHORPHAN HBR PO SCH (14:20)
[2018-09-24] MEDS: [UNRECOGNIZED DRUG - OTHER] PO SCH (14:20)
[2018-09-24] MEDS: QUINIDINE PO SCH (14:20)
[2018-09-24] MEDS ORDERED: ACETAMINOPHEN 325 MG TABLET (FP) PO ONE (15:32)
--- NOTE | 2018-09-24 15:36 | PN ---
Progress Note, Physician History of Present Illness: Pt seen and examined at bedside. She is awake and alert. She went for thrombectomy today. She complained of tenderness at needle site after surgery. - Current Medication List Current Medications: Active Medications Acetaminophen (Tylenol -) 650 mg PO ONCE ONE Stop: 09/24/18 15:33 Acetylcysteine (Mucomyst 20 Oral / Inh Use Only*) 800 mg NEB RQID [facility] Albuterol Sulfate (Ventolin 0.083% Nebulizer Soln -) 1 amp NEB RQID [facility] Last Admin: 09/24/18 12:10 Dose: Not Given Amlodipine Besylate (Norvasc -) 10 mg PO DAILY [facility] Last Admin: 09/24/18 14:18 Dose: 10 mg Budesonide/Formoterol Fumarate (Symbicort 160/4.5mcg -) 2 puff IH BID [facility] Last Admin: 09/24/18 14:16 Dose: 2 puff Carbidopa/Levodopa (Sinemet 25/100 -) 1 each PO TID [facility] Last Admin: 09/24/18 14:15 Dose: 1 each Clonazepam (Klonopin -) 0.5 mg PO BID TRE[facility] Clonidine (Catapres -) 0.1 mg PO DAILY [facility] Last Admin: 09/24/18 14:18 Dose: 0.1 mg Hydralazine HCl (Apresoline -) 50 mg PO DAILY [facility] Last Admin: 09/24/18 14:18 Dose: 50 mg Sodium Chloride (Normal Saline -) 250 mls @ 3,000 mls/hr IV PRN PRN PRN Reason: Hypotension during Dialysis Stop: 09/25/18 10:29 Levetiracetam (Keppra -) 250 mg PO BID [facility] Last Admin: 09/24/18 14:16 Dose: 250 mg Mirtazapine (Remeron -) 15 mg PO HS [facility] Non-Formulary Medication (Dextromethorphan Hbr/Quinidine [Nuedexta 20-10 Mg Capsule]) 1 each PO BID TREVA Pantoprazole Sodium (Protonix -) 40 mg PO DAILY [facility] Last Admin: 09/24/18 14:17 Dose: 40 mg Phenytoin Sodium (Dilantin -) 200 mg PO BID [facility] Last Admin: 09/24/18 14:15 Dose: 200 mg Senna (Senna -) 1 tab PO HS TREVA - Objective Vital Signs: Vital Signs Temperature 97.9 F 09/24/18 13:23 Pulse Rate 71 09/24/18 13:23 Respiratory Rate 22 H 09/24/18 13:23 Blood Pressure 190/71 H 09/24/18 13:23 O2 Sat by Pulse Oximetry (%) 100 09/24/18 12:15 Constitutional: Yes: Calm Eyes: Yes: Conjunctiva Clear HENT: Yes: Atraumatic Neck: Yes: Other (trache) Cardiovascular: Yes: S1, S2 Respiratory: Yes: Other (bilateral air entry) Gastrointestinal: Yes: WNL Musculoskeletal: Yes: WNL Extremities: Yes: Other (thrill and bruit. pulses intact, hands are warm, neuro intact in left arm) Neurological: Yes: Oriented Psychiatric: Yes: Oriented Labs: CBC, BMP 09/24/18 07:30 09/24/18 07:30 INR, PTT INR 1.00 (0.83-1.09) 09/23/18 10:00 Problem List - Problems (1) AV fistula occlusion Code(s): T82.898A - [facility] COMPLICATION OF VASCULAR PROSTH DEV/GRFT, INIT (2) Anemia Code(s): D64.9 - ANEMIA, UNSPECIFIED (3) ESRD (end stage renal disease) on dialysis Code(s): N18.6 - END STAGE RENAL DISEASE; Z99.2 - DEPENDENCE ON RENAL DIALYSIS Assessment/Plan Current Medications Generic Name Dose Route Start Last Admin Trade Name Freq PRN Reason Stop Dose Admin Acetylcysteine 800 mg 09/24/18 12:54 Mucomyst 20 Oral / Inh Use Only* NEB RQID TREVA Albuterol Sulfate 1 amp 09/24/18 12:00 09/24/18 12:10 Ventolin 0.083% Nebulizer Soln - NEB Not Given RQID TREVA Amlodipine Besylate 10 mg 09/25/18 10:00 09/24/18 14:18 Norvasc - PO 10 mg DAILY TREVA Administration Budesonide/Formoterol Fumarate 2 puff 09/24/18 22:00 09/24/18 14:16 Symbicort 160/4.5mcg - IH 2 puff BID TREVA Administration Carbidopa/Levodopa 1 each 09/24/18 14:00 09/24/18 14:15 Sinemet 25/100 - PO 1 each TID TREVA Administration Clonazepam 0.5 mg 09/24/18 22:00 Klonopin - PO BID TREVA Clonidine 0.1 mg 09/25/18 10:00 09/24/18 14:18 Catapres - PO 0.1 mg DAILY TREVA Administration Hydralazine HCl 50 mg 09/25/18 10:00 09/24/18 14:18 Apresoline - PO 50 mg DAILY TREVA Administration Sodium Chloride 250 mls @ 3,000 mls/hr 09/24/18 11:49 Normal Saline - IV 09/25/18 10:29 PRN PRN Hypotension during Dialysis Levetiracetam 250 mg 09/24/18 22:00 09/24/18 14:16 Keppra - PO 250 mg BID TREVA Administration Mirtazapine 15 mg 09/24/18 22:00 Remeron - PO HS [facility] Non-Formulary Medication 1 each 09/24/18 22:00 Dextromethorphan Hbr/Quinidine [Nuedexta 20-10 Mg Capsule] PO BID TREVA Pantoprazole Sodium 40 mg 09/25/18 10:00 09/24/18 14:17 Protonix - PO 40 mg DAILY TREVA Administration Phenytoin Sodium 200 mg 09/24/18 22:00 09/24/18 14:15 Dilantin - PO 200 mg BID TREVA Administration Senna 1 tab 09/24/18 22:00 Senna - PO HS [facility] Impression 1. ESRD 2. occluded graft 3. epilepsy 4. chronic resp failure on trache 5. HTN 6. hyperkalemia 7. anemia Plan - pt is s/p thrombectomy - HD today, she is tolerating - will give a dose of tylenol for discomfort - citrate bath on HD - epogen for anemia - HD AVF, 3 hrs, 450 abf, regular dialyzer, 2k standard bath, aranesp 40, venofer 50 - pt has a heparin allergy
[2018-09-24] MEDS ORDERED: EPOETIN ALFA 3,000 UNIT/1 ML ML IVPUSH ONE (15:45)
--- NOTE | 2018-09-24 15:50 | OP ---
DATE OF OPERATION: 09/24/2018 PREOPERATIVE DIAGNOSIS: Clotted left arteriovenous graft. POSTOPERATIVE DIAGNOSIS: Clotted left arteriovenous graft. PROCEDURE: Venogram, suction thrombectomy, venoplasty of left arteriovenous graft. SURGEON: Murali Thorpe DO ANESTHESIA: Fractional. ESTIMATED BLOOD LOSS: 50 mL. INDICATIONS: The patient is a 58-year-old female that comes from the long term with a clotted left AV graft. It was decided that she would need a venogram and suction thrombectomy. The patient had preoperative labs drawn in the emergency room and on the floor which were all within normal limits. . PROCEDURE IN DETAIL: The patient was consented for the procedure understanding all of the risks, benefits, and alternatives and was then brought in to the operating room. Once in the operating room, she was laid down on the operating table in the supine manner and the area of the left arm was prepped and draped in a sterile surgical manner. We then injected 10 mL of lidocaine 1% above the arterial anastomosis on the AV graft. We then used a micropuncture needle and punctured the AV graft. Micropuncture wire was inserted, micropuncture sheath was inserted, and a traditional short 6-Argentine sheath was inserted. We then shot our venogram showing that the graft was clotted. We then placed a 0.035 floppy guidewire up into the central veins into the outflow stent using a catheter to navigate through the graft. We then used our AVX suction thrombectomy suction catheter and performed suction thrombectomy of the entire graft in the proximal to its distal portion. We then shot a completion venogram showing that the graft was patent but the stent was still occluded and stenotic. We then went ahead and used a 9 x 9 Dupage balloon and performed a venoplasty of the entire outflow all the way down to the proximal AV graft. The patient did not receive any heparin due to the fact that she has an allergy to HEPARIN. We now injected 10 mL of lidocaine 1% at the distal AV graft. We then placed a micropuncture needle and punctured the graft towards the arterial anastomosis and a short 6-Argentine sheath was placed. We placed our 0.035 floppy guidewire into the proximal AV graft and into the brachial artery going up the arm. We then used our AVX suction thrombectomy catheter and performed suction thrombectomy of the proximal AV graft. We then went ahead and used the 7 x 7 balloon and performed venoplasty of the proximal AV graft. We now had a good thrill in our AV graft even though it was still a little bit pulsatile. Completion venogram showed that the graft was patent and it was going all the way up into the central veins without any disease and the R stents were now patent. At this point we decided that no more intervention was needed. We went ahead and used a 4-0 Biosyn stitch and a [id number] stitch was placed around each sheath and the sheaths were pulled. The area was wet and dried and a Dermabond was placed. The patient has a good bruit. There was a good thrill in our AV graft. The patient was transferred to PACU in stable condition. MURALI THORPE DO [id number]
[2018-09-24] MEDS ORDERED: clonazePAM 0.5 MG TABLET PO ONE (16:41)
[2018-09-24] MEDS ORDERED: traMADol HCL 50 MG TABLET PO PRN (16:41)
--- NOTE | 2018-09-24 16:47 | PN ---
Progress Note (short form) - Note Progress Note: No SOB Was last dialysed on Tuesday for declotting today Vital Signs - 24 hr 09/23/18 09/24/18 09/24/18 18:30 00:00 06:00 Temperature 98.4 F 97.5 F L Pulse Rate 64 68 62 Respiratory 20 20 20 Rate Blood Pressure 113/55 L 141/60 138/81 O2 Sat by Pulse Oximetry (%) 09/24/18 09/24/18 09/24/18 09:00 11:28 11:45 Temperature 97.6 F 97.6 F Pulse Rate 76 64 63 Respiratory 20 18 18 Rate Blood Pressure 143/66 179/62 H 177/73 H O2 Sat by Pulse 100 100 Oximetry (%) 09/24/18 09/24/18 09/24/18 12:00 12:15 13:23 Temperature 97.5 F L 97.9 F Pulse Rate 60 72 71 Respiratory 18 18 22 H Rate Blood Pressure 179/80 H 180/79 H 190/71 H O2 Sat by Pulse 100 100 Oximetry (%) Current Medications Generic Name Dose Route Start Last Admin Trade Name Freq PRN Reason Stop Dose Admin Acetylcysteine 800 mg 09/24/18 12:54 Mucomyst 20 Oral / Inh Use Only* NEB RQID TREVA Albuterol Sulfate 1 amp 09/24/18 12:00 09/24/18 12:10 Ventolin 0.083% Nebulizer Soln - NEB Not Given RQID TREVA Amlodipine Besylate 10 mg 09/25/18 10:00 09/24/18 14:18 Norvasc - PO 10 mg DAILY TREVA Administration Budesonide/Formoterol Fumarate 2 puff 09/24/18 22:00 09/24/18 14:16 Symbicort 160/4.5mcg - IH 2 puff BID TREVA Administration Carbidopa/Levodopa 1 each 09/24/18 14:00 09/24/18 14:15 Sinemet 25/100 - PO 1 each TID TREVA Administration Clonazepam 0.5 mg 09/24/18 22:00 Klonopin - PO BID TREVA Clonazepam 0.5 mg 09/24/18 16:41 Klonopin - PO 09/24/18 16:42 ONCE ONE Clonidine 0.1 mg 09/25/18 10:00 09/24/18 14:18 Catapres - PO 0.1 mg DAILY TREVA Administration Hydralazine HCl 50 mg 09/25/18 10:00 09/24/18 14:18 Apresoline - PO 50 mg DAILY TREVA Administration Sodium Chloride 250 mls @ 3,000 mls/hr 09/24/18 11:49 Normal Saline - IV 09/25/18 10:29 PRN PRN Hypotension during Dialysis Levetiracetam 250 mg 09/24/18 22:00 09/24/18 14:16 Keppra - PO 250 mg BID TREVA Administration Mirtazapine 15 mg 09/24/18 22:00 Remeron - PO HS TREVA Non-Formulary Medication 1 each 09/24/18 22:00 Dextromethorphan Hbr/Quinidine [Nuedexta 20-10 Mg Capsule] PO BID [facility] Pantoprazole Sodium 40 mg 09/25/18 10:00 09/24/18 14:17 Protonix - PO 40 mg DAILY TREVA Administration Phenytoin Sodium 200 mg 09/24/18 22:00 09/24/18 14:15 Dilantin - PO 200 mg BID TREVA Administration Senna 1 tab 09/24/18 22:00 Senna - PO HS TREVA Tramadol HCl 50 mg 09/24/18 16:41 Ultram - PO Q6H PRN PAIN LEVEL 6-10 Laboratory Results - last 24 hr 09/24/18 09/24/18 09/24/18 07:30 07:30 14:20 WBC 5.3 RBC 2.56 L Hgb 8.3 L Hct 25.3 L MCV 98.6 H MCH 32.2 MCHC 32.7 RDW 16.3 H Plt Count 245 MPV 6.9 L Absolute Neuts (auto) 3.7 Neutrophils % 69.5 Lymphocytes % 16.2 Monocytes % 9.8 Eosinophils % 3.9 Basophils % 0.6 Nucleated RBC % 0 Sodium 135 L Potassium 5.5 H Chloride 98 Carbon Dioxide 24 Anion Gap 13 BUN 101 H Creatinine 7.6 H* Creat Clearance w eGFR 5.45 Random Glucose 83 Calcium 9.0 Total Bilirubin 0.5 AST 21 ALT 11 L Alkaline Phosphatase 133 H Total Protein 6.2 L Albumin 3.0 L Hep A IgM Ab Confirm Cancelled Hepatitis A Ab Total Cancelled Hep Bs Antigen Cancelled Hep Bs Ag Confirmation Cancelled Hep Bs Antibody Cancelled Hep B Core Total Ab Cancelled S1S2 RRR Lungs decreased Trach collar Abd- soft, NT No edema Left AVF-- no thrill or bruit PLAN - for declotting today - not in volume overload currently -- renal eval -- for dialysis afterwards Problem List - Problems (1) AV fistula occlusion Code(s): T82.898A - [facility] COMPLICATION OF VASCULAR PROSTH DEV/GRFT, INIT (2) Anemia Code(s): D64.9 - ANEMIA, UNSPECIFIED (3) Dialysis catheter clot or failure Code(s): CYR3990 - (4) ESRD (end stage renal disease) on dialysis Code(s): N18.6 - END STAGE RENAL DISEASE; Z99.2 - DEPENDENCE ON RENAL DIALYSIS (5) HTN (hypertension) Code(s): I10 - ESSENTIAL (PRIMARY) HYPERTENSION (6) Tracheostomy dependent Code(s): Z93.0 - TRACHEOSTOMY STATUS
[2018-09-24 19:02] LABS: ANION GAP 9 MMOL/L (8-16); BLOOD UREA NITROGEN 21 mg/dL (7-18); CALCIUM 7.9 mg/dL (8.5-10.1); CHLORIDE 99 mmol/L (98-107); CO2 30 mmol/L (21-32); CREATININE 2.1 mg/dL (0.55-1.3); GLUCOSE,RANDOM 125 mg/dL (74-106); POTASSIUM 3.2 mmol/L (3.5-5.1); SODIUM 138 mmol/L (136-145)
[2018-09-24] MEDS ORDERED: QUINIDINE PO SCH (22:00)
[2018-09-24] MEDS ORDERED: SENNOSIDES 8.6MG TABLET (FP) PO SCH (22:00)
[2018-09-24] MEDS ORDERED: [UNRECOGNIZED DRUG - OTHER] PO SCH (22:00)
[2018-09-24] MEDS ORDERED: MIRTAZAPINE 15 MG TABLET (FP) PO SCH (22:00)
[2018-09-24] MEDS ORDERED: DEXTROMETHORPHAN HBR PO SCH (22:00)
[2018-09-24] MEDS: clonazePAM 0.5 MG TABLET PO SCH (22:47)
[2018-09-25] MEDS: CARBIDOPA/LEVODOPA 25/100 TABLET (FP) PO SCH ×2 (06:30→15:23)
[2018-09-25] MEDS: ACETYLCYSTEINE 20% 200MG/ML 4 ML VIAL *FOR ORAL / INH USE ONLY NEB SCH (07:41)
[2018-09-25] MEDS: ACETYLCYSTEINE NEB SCH ×3 (07:44→07:46)
[2018-09-25] MEDS: clonazePAM 0.5 MG TABLET PO SCH ×2 (07:44→10:42)
[2018-09-25] MEDS: ALBUTEROL SO4 0.083% IH SOL 2.5 MG/3 ML VIAL.NEB. NEB SCH ×2 (07:54→11:01)
[2018-09-25] MEDS ORDERED: ACETYLCYSTEINE 20% 200MG/ML 4 ML VIAL *FOR ORAL / INH USE ONLY PO SCH (08:00)
--- NOTE | 2018-09-25 08:09 | PN ---
Progress Note (short form) - Note Progress Note: POD #1 Doing well. No complaints offered. s/p HD via LUE AVG 1.5 KG WT removed. T current: 99.3F VSS. Gen: nad LUE: dressing c/d/i. + thrill. hand warm. + radial. Cap refill < 3 sec Problem List - Problems (1) AV fistula occlusion Assessment/Plan: POD #1 s/p Venogram, suction thrombectomy, venoplasty left avg Cont care per primary team. HD per pt's schedule No further vascular intervention. On behalf of Dr. Paz, thank you for the opportunity to participate in your patient's care. Code(s): T82.898A - [facility] COMPLICATION OF VASCULAR PROSTH DEV/GRFT, INIT (2) ESRD (end stage renal disease) on dialysis Code(s): N18.6 - END STAGE RENAL DISEASE; Z99.2 - DEPENDENCE ON RENAL DIALYSIS
[2018-09-25 09:32] LABS: ANION GAP 10 MMOL/L (8-16); BLOOD UREA NITROGEN 46 mg/dL (7-18); CALCIUM 8.4 mg/dL (8.5-10.1); CHLORIDE 98 mmol/L (98-107); CO2 30 mmol/L (21-32); CREATININE 4.6 mg/dL (0.55-1.3); GLUCOSE,RANDOM 94 mg/dL (74-106); SODIUM 138 mmol/L (136-145)
--- NOTE | 2018-09-25 10:29 | PN ---
Progress Note, Physician Chief Complaint: s/p suction thrombectomy left upper extremity post op day one History of Present Illness: under monitored anesthesia care and sedation - Current Medication List Current Medications: Active Medications Acetylcysteine (Mucomyst 20 Oral / Inh Use Only*) 200 mg IH RQID [facility] Albuterol Sulfate (Ventolin 0.083% Nebulizer Soln -) 1 amp NEB RQID [facility] Last Admin: 09/25/18 07:54 Dose: 1 amp Amlodipine Besylate (Norvasc -) 10 mg PO DAILY [facility] Last Admin: 09/24/18 14:18 Dose: 10 mg Budesonide/Formoterol Fumarate (Symbicort 160/4.5mcg -) 2 puff IH BID [facility] Last Admin: 09/24/18 22:47 Dose: 2 puff Carbidopa/Levodopa (Sinemet 25/100 -) 1 each PO TID [facility] Last Admin: 09/25/18 06:30 Dose: 1 each Clonazepam (Klonopin -) 0.5 mg PO BID [facility] Last Admin: 09/24/18 22:47 Dose: 0.5 mg Clonidine (Catapres -) 0.1 mg PO DAILY [facility] Last Admin: 09/24/18 14:18 Dose: 0.1 mg Hydralazine HCl (Apresoline -) 50 mg PO DAILY [facility] Last Admin: 09/24/18 14:18 Dose: 50 mg Sodium Chloride (Normal Saline -) 250 mls @ 3,000 mls/hr IV PRN PRN PRN Reason: Hypotension during Dialysis Stop: 09/25/18 10:29 Levetiracetam (Keppra -) 250 mg PO BID [facility] Last Admin: 09/24/18 22:47 Dose: 250 mg Mirtazapine (Remeron -) 15 mg PO HS [facility] Last Admin: 09/24/18 22:47 Dose: 15 mg Non-Formulary Medication (Dextromethorphan Hbr/Quinidine [Nuedexta 20-10 Mg Capsule]) 1 each PO BID [facility] Pantoprazole Sodium (Protonix -) 40 mg PO DAILY [facility] Last Admin: 09/24/18 14:17 Dose: 40 mg Phenytoin Sodium (Dilantin -) 200 mg PO BID [facility] Last Admin: 09/24/18 22:48 Dose: 200 mg Senna (Senna -) 1 tab PO HS [facility] Last Admin: 12/09/18 22:47 Dose: 1 tab Tramadol HCl (Ultram -) 50 mg PO Q6H PRN PRN Reason: PAIN LEVEL 6-10 - Objective Vital Signs: Vital Signs Temperature 99.3 F 09/25/18 06:00 Pulse Rate 80 09/25/18 07:53 Respiratory Rate 20 09/25/18 06:00 Blood Pressure 121/50 L 09/25/18 06:00 O2 Sat by Pulse Oximetry (%) 98 09/25/18 07:53 Constitutional: Yes: Well Nourished Cardiovascular: Yes: WNL Respiratory: Yes: Regular Gastrointestinal: Yes: WNL Labs: CBC, BMP 09/24/18 07:30 09/25/18 08:40 INR, PTT INR 1.00 (0.83-1.09) 09/23/18 10:00 Assessment/Plan No adverse effect of anesthetic, no complaints. Dept of anesthesia will sign off care at this time
[2018-09-25] MEDS ORDERED: PT OWN MED DRAWER 7, Y5N ONE (10:40)
[2018-09-25] MEDS: hydrALAZINE HCL 50 MG TABLET (FP) PO SCH (10:42)
[2018-09-25] MEDS: cloNIDine HCL 0.1 MG TABLET PO SCH (10:42)
[2018-09-25] MEDS: levETIRAcetam 250 MG TABLET (FP) PO SCH (10:42)
[2018-09-25] MEDS: amLODIPine BESYLATE 10 MG TABLET (FP) PO SCH (10:42)
[2018-09-25] MEDS: PANTOPRAZOLE 40 MG TABLET (FP) PO SCH (10:42)
[2018-09-25] MEDS: PHENYTOIN NA EXTENDED 100 MG CAPSULE (FP) PO SCH (10:43)
[2018-09-25] MEDS: BUDESONIDE/FORMETEROL FUMARATE 160/4.5 mcg INHALER IH SCH (10:44)
[2018-09-25] MEDS ORDERED: ACETYLCYSTEINE 20% 200MG/ML 4 ML VIAL *FOR ORAL / INH USE ONLY IH SCH (12:00)
--- NOTE | 2018-09-25 13:05 | DS ---
Physical Examination Vital Signs: Vital Signs Temperature 98.6 F 09/25/18 10:45 Pulse Rate 89 09/25/18 10:45 Respiratory Rate 22 H 09/25/18 10:45 Blood Pressure 118/61 09/25/18 10:45 O2 Sat by Pulse Oximetry (%) 98 09/25/18 07:53 Findings/Remarks: patient comfortable Seen and examined Chart reviewed Had successful dialysis yesterday--- declotted fistula Constitutional: Yes: No Distress, Calm Neck: Yes: Supple, Other (status post tracheostomy--- trach collar--- oxygen 40% ) Cardiovascular: Yes: Regular Rate and Rhythm Respiratory: Yes: Diminished Gastrointestinal: Yes: Soft Edema: No Neurological: Yes: Alert Labs: CBC, BMP 09/24/18 07:30 09/25/18 08:40 Discharge Summary Reason For Visit: ARTERIOVENOUS FISTULA OCCLUSION Current Active Problems AV fistula occlusion (Acute) Hospital Course: patient--- admitted secondary to occluded graft--- fixed Underwent successful dialysis yesterda Stable Discharge back to retirement Medications reviewed/ counselled discussed with nursing staff also. Condition: Improved - Instructions Referrals: Garcia Edmonds MD [Primary Care Provider] - Disposition: [facility] - Home Medications Comprehensive Discharge Medication List: Ambulatory Orders Amlodipine Besylate [Norvasc -] 10 mg PO DAILY tablet 06/24/18 Budesonide/Formeterol Fumarate [SYMBICORT 160/4.5mcg -] 2 puff IH BID inhaler 06/24/18 Phenytoin Na Extended [Dilantin -] 200 mg PO BID capsule 06/24/18 Sevelamer Carbonate [Renvela Powder Packet -] 2.4 gm PO TIDCM powd.pack hydrALAZINE HCL [Apresoline -] 50 mg PO DAILY tablet 06/24/18 levETIRAcetam [Keppra -] 250 mg PO BID tablet 06/24/18 Acetaminophen 325 mg PO PRN 07/05/18 Docusate Sodium [Colace] 300 mg PO DAILY 07/05/18 Darbepoetin Raymond in Polysorbat [Aranesp] 40 mcg IJ MONTHLY 08/07/18 Iron Sucrose Complex [Venofer] 50 mg IV WEEKLY 08/07/18 Mirtazapine [Remeron -] 30 mg PO DAILY 08/07/18 Sennosides [Senna] 8.6 mg PO HS 08/07/18 Albuterol 0.083% Nebulizer Liza [Ventolin 0.083% Nebulizer Soln -] 2.5 mg NEB RQID 08/08/18 Dextromethorphan HBr/Quinidine [Nuedexta 20-10 mg Capsule] 1 each PO BID Silver Sulfadiazine 1% Top Cr [Silvadene -] 1 applic TP PRN 08/08/18 Vit B Comp No.3/Folic/C/Biotin [Diana-Denny Rx Tablet] 1 each PO DAILY 08/08/18 cloNIDine HCL [Catapres -] 0.1 mg PO DAILY 08/08/18 clonazePAM [Klonopin -] 0.5 mg PO BID 08/08/18 Acetylcysteine Po/INH 20% [Mucomyst 20 Oral / INH Use Only*] 800 mg NEB RQID vial 09/25/18 Carbidopa/Levodopa 25/100 [Sinemet 25/100 -] 1 each PO TID tablet 09/25/18 Pantoprazole Sodium [Protonix -] 40 mg PO DAILY tablet.ec 09/25/18
--- NOTE | 2018-09-25 15:09 | PN ---
Progress Note, Physician History of Present Illness: Pt seen and examined at bedside. She is awake and alert. She tolerated HD yesterday. Her left arm pain is resolved. She wants to go back to rehab. - Current Medication List Current Medications: Active Medications Acetylcysteine (Mucomyst 20 Oral / Inh Use Only*) 200 mg IH RQID [facility] Last Admin: 09/25/18 11:01 Dose: 200 mg Albuterol Sulfate (Ventolin 0.083% Nebulizer Soln -) 1 amp NEB RQID [facility] Last Admin: 09/25/18 11:01 Dose: 1 amp Amlodipine Besylate (Norvasc -) 10 mg PO DAILY [facility] Last Admin: 09/25/18 10:42 Dose: 10 mg Budesonide/Formoterol Fumarate (Symbicort 160/4.5mcg -) 2 puff IH BID [facility] Last Admin: 09/25/18 10:44 Dose: 2 puff Carbidopa/Levodopa (Sinemet 25/100 -) 1 each PO TID [facility] Last Admin: 09/25/18 06:30 Dose: 1 each Clonazepam (Klonopin -) 0.5 mg PO BID [facility] Last Admin: 09/25/18 10:42 Dose: 0.5 mg Clonidine (Catapres -) 0.1 mg PO DAILY [facility] Last Admin: 09/25/18 10:42 Dose: 0.1 mg Hydralazine HCl (Apresoline -) 50 mg PO DAILY [facility] Last Admin: 09/25/18 10:42 Dose: 50 mg Levetiracetam (Keppra -) 250 mg PO BID [facility] Last Admin: 09/25/18 10:42 Dose: 250 mg Mirtazapine (Remeron -) 15 mg PO HS [facility] Last Admin: 09/24/18 22:47 Dose: 15 mg Non-Formulary Medication (Dextromethorphan Hbr/Quinidine [Nuedexta 20-10 Mg Capsule]) 1 each PO BID [facility] Pantoprazole Sodium (Protonix -) 40 mg PO DAILY [facility] Last Admin: 09/25/18 10:42 Dose: 40 mg Phenytoin Sodium (Dilantin -) 200 mg PO BID [facility] Last Admin: 09/25/18 10:43 Dose: 200 mg Senna (Senna -) 1 tab PO [facility] Last Admin: 09/24/18 22:47 Dose: 1 tab Tramadol HCl (Ultram -) 50 mg PO Q6H PRN PRN Reason: PAIN LEVEL 6-10 - Objective Vital Signs: Vital Signs Temperature 98.6 F 09/25/18 10:45 Pulse Rate 89 09/25/18 10:45 Respiratory Rate 22 H 09/25/18 10:45 Blood Pressure 118/61 09/25/18 10:45 O2 Sat by Pulse Oximetry (%) 100 09/25/18 09:00 Constitutional: Yes: Calm Eyes: Yes: Conjunctiva Clear HENT: Yes: Other (trache) Neck: Yes: Supple Cardiovascular: Yes: S1, S2 Respiratory: Yes: CTA Bilaterally Gastrointestinal: Yes: Soft Genitourinary: Yes: Incontinence Musculoskeletal: Yes: Muscle Weakness Edema: No Neurological: Yes: Oriented Psychiatric: Yes: Oriented Labs: CBC, BMP 09/24/18 07:30 09/25/18 08:40 INR, PTT INR 1.00 (0.83-1.09) 09/23/18 10:00 Problem List - Problems (1) AV fistula occlusion Code(s): T82.898A - OT COMPLICATION OF VASCULAR PROSTH DEV/GRFT, INIT (2) Anemia Code(s): D64.9 - ANEMIA, UNSPECIFIED (3) ESRD (end stage renal disease) on dialysis Code(s): N18.6 - END STAGE RENAL DISEASE; Z99.2 - DEPENDENCE ON RENAL DIALYSIS Assessment/Plan Current Medications Generic Name Dose Route Start Last Admin Trade Name Freq PRN Reason Stop Dose Admin Acetylcysteine 200 mg 09/25/18 12:00 09/25/18 11:01 Mucomyst 20 Oral / Inh Use Only* IH 200 mg RQID TREVA Administration Albuterol Sulfate 1 amp 09/24/18 12:00 09/25/18 11:01 Ventolin 0.083% Nebulizer Soln - NEB 1 amp RQID TREVA Administration Amlodipine Besylate 10 mg 09/25/18 10:00 09/25/18 10:42 Norvasc - PO 10 mg DAILY TREVA Administration Budesonide/Formoterol Fumarate 2 puff 09/24/18 22:00 09/25/18 10:44 Symbicort 160/4.5mcg - IH 2 puff BID TREVA Administration Carbidopa/Levodopa 1 each 09/24/18 14:00 09/25/18 06:30 Sinemet 25/100 - PO 1 each TID TREVA Administration Clonazepam 0.5 mg 09/24/18 22:00 09/25/18 10:42 Klonopin - PO 0.5 mg BID TREVA Administration Clonidine 0.1 mg 09/25/18 10:00 09/25/18 10:42 Catapres - PO 0.1 mg DAILY TREVA Administration Hydralazine HCl 50 mg 09/25/18 10:00 09/25/18 10:42 Apresoline - PO 50 mg DAILY TREVA Administration Levetiracetam 250 mg 09/24/18 22:00 09/25/18 10:42 Keppra - PO 250 mg BID TREVA Administration Mirtazapine 15 mg 09/24/18 22:00 09/24/18 22:47 Remeron - PO 15 mg HS TREVA Administration Non-Formulary Medication 1 each 09/24/18 22:00 Dextromethorphan Hbr/Quinidine [Nuedexta 20-10 Mg Capsule] PO BID TREVA Pantoprazole Sodium 40 mg 09/25/18 10:00 09/25/18 10:42 Protonix - PO 40 mg DAILY TREVA Administration Phenytoin Sodium 200 mg 09/24/18 22:00 09/25/18 10:43 Dilantin - PO 200 mg BID TREVA Administration Senna 1 tab 09/24/18 22:00 09/24/18 22:47 Senna - PO 1 tab HS TREVA Administration Tramadol HCl 50 mg 09/24/18 16:41 Ultram - PO Q6H PRN PAIN LEVEL 6-10 Impression 1. ESRD 2. occluded graft 3. epilepsy 4. chronic resp failure on trache 5. HTN 6. hyperkalemia 7. anemia Plan - pt tolerated HD last night - she does not want to dialyze today - she is going back to rehab - she has HD set up as outpt - recommend that she gets HD tomorrow as outpt but she says she does not want to - epogen for anemia - HD AVF, 3 hrs, 450 abf, regular dialyzer, 2k standard bath, aranesp 40, venofer 50 - pt has a heparin allergy
[2018-09-25 15:52] VITALS: BP 108/72; PULSE 81; TEMP 98.1
[2018-09-26 05:31] LABS: HBSAG SCREEN Negative (Negative); HEP B CORE AB, TOT Negative (Negative)
== END 2018-09-25 16:28 | DRG 252 ==
LOC: JER 18:30 → JERBED 21:57 → J5S 09-23 01:22
PROVIDERS: ADMIT Internal Medicine; ATTEND Internal Medicine
PROC: 05773ZZ Dilation of Right Axillary Vein, Percutaneous Approach (ICD-10-PCS; 2018-09-24)
PROC: 5A1D70Z Performance of Urinary Filtration, Intermittent, Less than 6 Hours Per Day (ICD-10-PCS; 2018-09-24)
PROC: 05CY3ZZ Extirpation of Matter from Upper Vein, Percutaneous Approach (ICD-10-PCS; principal; 2018-09-24 09:00)
DX: T82.868A Thrombosis due to vascular prosthetic devices, implants and grafts, initial encounter (principal); N18.6 End stage renal disease; R53.2 Functional quadriplegia; I13.2 Hypertensive heart and chronic kidney disease with heart failure and with stage 5 chronic kidney disease, or end stage renal disease; J96.12 Chronic respiratory failure with hypercapnia; I50.9 Heart failure, unspecified; Y84.1 Kidney dialysis as the cause of abnormal reaction of the patient, or of later complication, without mention of misadventure at the time of the procedure; E87.5 Hyperkalemia; G40.909 Epilepsy, unspecified, not intractable, without status epilepticus; I48.91 Unspecified atrial fibrillation; I25.10 Atherosclerotic heart disease of native coronary artery without angina pectoris; I25.2 Old myocardial infarction; J44.9 Chronic obstructive pulmonary disease, unspecified; Z93.0 Tracheostomy status; R47.02 Dysphasia; D64.9 Anemia, unspecified; F41.9 Anxiety disorder, unspecified; Z87.891 Personal history of nicotine dependence; Z99.2 Dependence on renal dialysis; Z92.29 Personal history of other drug therapy; E78.5 Hyperlipidemia, unspecified
CPT/HCPCS: 36415; 71045-TC-FY; 76000-TC-FY; 80048; 80053; 80177; 80185; 83735; 84100; 85025; 85610; 85730; 86704; 86706; 86708; 86803; 87340; 93005; 93010; 93971; 94640; 94760; 99282-25; J0735; J0885

== ENCOUNTER 2019-11-09 15:13 | Inpatient (IN) | payer OTHER ==
--- NOTE | 2019-11-09 15:52 | PDOC ---
History of Present Illness - General Chief Complaint: Dialysis Shunt Problem Stated Complaint: PIC LINE CLOGGED - History of Present Illness Initial Comments: The pt is a 59F with a PMH of seizure disorder, asthma, HTN, dysphasia, ESRD (M/ W/F dialysis) who presents for evaluation of LUE fistula occlusion. Pt's last full dialysis was Tuesday. Pt denies any other symptoms including fever/chills , chest pain, trouble breathing, cough, N/V/C/D, rash, or abdominal pain. 11/09/19 15:51 Past History - Past Medical History Allergies/Adverse Reactions: Allergies Allergy/AdvReac Type Severity Reaction Status Date / Time SHAHBAZ Inhibitors Allergy Verified 09/22/18 18:58 codeine Allergy Verified 09/22/18 18:58 diphenhydramine Allergy Verified 09/22/18 18:58 [From Benadryl] heparin Allergy Verified 09/22/18 18:58 lisinopril Allergy Verified 09/22/18 18:58 Home Medications: Ambulatory Orders Amlodipine Besylate [Norvasc -] 10 mg PO DAILY tablet 06/24/18 levETIRAcetam [Keppra -] 250 mg PO BID tablet 06/24/18 Acetaminophen 650 mg PO PRN PRN 07/05/18 Mirtazapine [Remeron -] 15 mg PO HS 08/07/18 Albuterol 0.083% Nebulizer Liza [Ventolin 0.083% Nebulizer Soln -] 2.5 mg NEB RQID 08/08/18 cloNIDine HCL [Catapres -] 0.1 mg PO BID 08/08/18 clonazePAM [Klonopin -] 0.5 mg PO TID 08/08/18 Acetylcysteine Po/INH 20% [Mucomyst 20 Oral / INH Use Only*] 800 mg NEB RQID vial 09/25/18 Carbidopa/Levodopa 25/100 [Sinemet 25/100 -] 1 each PO TID tablet 09/25/18 Benztropine Mesylate [Cogentin -] 1 tab PO DAILY 10/22/19 Dextromethorphan HBr/Quinidine [Nuedexta 20-10 mg Capsule] 1 tab PO BID Entacapone 1 tab PO TID 10/22/19 Nystatin Cream [Mycostatin Cream -] 1 applic TD BID 10/22/19 Phenytoin 1 tab PO HS 10/22/19 Pregabalin 1 cap PO TID 10/22/19 Rivaroxaban [Xarelto] 20 mg PO DAILY 10/22/19 hydrALAZINE HCL [Apresoline -] 25 mg PO TID 10/22/19 Budesonide/Formeterol Fumarate [SYMBICORT 160/4.5mcg -] 2 puff IH BID 11/09/19 Calcium Carbonate [Antacid Calcium] 215 mg PO DAILY PRN 11/09/19 Phenytoin Na Extended [Dilantin -] 200 mg PO DAILY 11/09/19 Phenytoin Na Extended [Dilantin -] 200 mg PO HS 11/09/19 Sennosides [Senna] 8.6 mg PO HS 11/09/19 Vitamin B Comp W-C [Nephro-Denny -] 0.8 mg PO DAILY 11/09/19 Anemia: Yes (refractory anemia) Asthma: Yes Cardiac Disorders: Yes (NM(2017) with subsequent coma [id number]) COPD: Yes CHF: Yes GI Disorders: Yes (peg tube) Disorders: Yes (Htn chronic kid dx,renal osteodystrophy) HTN: Yes Psychiatric Problems: Yes (anxiety) Seizures: Yes (epilepsy,essential tremor) - Surgical History Abdominal Surgery: Yes (PEG with reversal) GI Surgery: Yes (peg tube) - Psycho Social/Smoking Cessation Hx Smoking History: Never smoked Have you smoked in the past 12 months: No Number of Cigarettes Smoked Daily: 40 If you are a former smoker, when did you quit?: 2017 'Breaking Loose' booklet given: 06/23/18 Hx Alcohol Use: No Drug/Substance Use Hx: No Hx Substance Use Treatment: No Review of Systems - Review of Systems Able to Perform ROS?: Yes Comments:: GENERAL/CONSTITUTIONAL: No fever or chills. No weakness HEAD, EYES, EARS, NOSE AND THROAT: No change in vision. No change in hearing. No sore throat CARDIOVASCULAR: No chest pain or shortness of breath RESPIRATORY: Denies cough, hemoptysis GASTROINTESTINAL: No nausea, vomiting, diarrhea or constipation MUSCULOSKELETAL: No joint or muscle swelling or pain. No neck or back pain SKIN: No rash NEUROLOGIC: No headache, vertigo, loss of consciousness, or change in strength/ sensation ENDOCRINE: No increased thirst. No abnormal weight change ALLERGIC/IMMUNOLOGIC: No hives or skin allergy 11/09/19 16:03 Is the patient limited Belarusian proficient: No *Physical Exam - Vital Signs Last Vital Signs Temp Pulse Resp BP Pulse Ox 97.9 F 80 16 126/51 L 100 11/09/19 15:20 11/09/19 15:20 11/09/19 15:20 11/09/19 15:20 11/09/19 15:20 - Physical Exam GENERAL: Awake, alert, and oriented to person/place/time, in no acute distress HEAD: No signs of trauma, normoc ephalic, atraumatic EYES: PERRLA, EOMI, sclera anicteric, conjunctiva clear ENT: Hearing grossly normal, nares patent, oropharynx clear without exudates. Moist mucosa NECK: Tracheostomy in place LUNGS: No distress, speaks in full sentences, clear to auscultation bilaterally HEART: Regular rate and rhythm, normal S1 and S2, no murmurs appreciated, peripheral pulses normal and equal bilaterally ABDOMEN: Soft, nontender, normoactive bowel sounds. No guarding, no rebound EXTREMITIES: Moves all extremities independently, LUE fistula w/o palpable thrill NEUROLOGICAL: Cranial nerves II through XII grossly intact. Normal speech, normal gait, no focal sensorimotor deficits SKIN: Warm, Dry 11/09/19 16:04 ED Treatment Course - LABORATORY CBC & Chemistry Diagram: 11/09/19 16:20 11/09/19 16:20 - RADIOLOGY Radiograph Interpretation: US/DUPLEX VASCUL US-1 ARM Left arm vascular ultrasound Clinical information: fistula occlusion The exam was performed utilizing grayscale and Doppler sonography. No definite flow is seen within the AV graft of the left arm consistent with occlusion. Impression: As noted above. 11/09/19 18:48 Medical Decision Making - Medical Decision Making The pt is a 59F with a PMH of seizure disorder, asthma, HTN, dysphasia, ESRD (M/ W/F dialysis) who presents for evaluation of LUE fistula occlusion. ED Course Labs sent ECG Plan for admission for occluded LUE fistula 11/09/19 16:05 Labs sent 1630 awaiting lab to receive 11/09/19 17:05 ECG w/ NSR; HR 77; QTc 463; no axis deviation; no MAIRA; no TWI No leukocytosis Anemia noted, no indication for transfusion at this time K 5.8, no indication for emergent dialysis LFTs wnl Plan for admission for occluded graft Microblog sent for admission 11/09/19 18:30 Pt signed out to Primo Admitting 11/09/19 19:02 Discharge - Discharge Information Problems reviewed: Yes Clinical Impression/Diagnosis: AV fistula occlusion Qualifiers: Encounter type: initial encounter Qualified Code(s): T82.898A - Other specified complication of vascular prosthetic devices, implants and grafts, initial encounter Condition: Stable - Admission Yes - Follow up/Referral Referrals: Marlon Vazquez [Primary Care Provider] - - Patient Discharge Instructions - Post Discharge Activity
--- NOTE | 2019-11-09 17:17 | PDOC ---
Documentation entered by Jessica Ureña SCRIBE, acting as scribe for Samuel Tinoco MD. Samuel Tinoco MD: This documentation has been prepared by the Adelita gregory Adrianna, SCRIBE, under my direction and personally reviewed by me in its entirety. I confirm that the documentation accurately reflects all work, treatment, procedures, and medical decision making performed by me. Attending Attestation - Resident Resident Name: Dru Kathleen - ED Attending Attestation I have performed the following: I have examined & evaluated the patient, The case was reviewed & discussed with the resident, I agree w/resident's findings & plan, Exceptions are as noted - HPI HPI: 11/09/19 17:17 59 F with h/o seizure disorder, asthma, HTN, dysphasia, ESRD (M/W/F dialysis), presenting to ED with non-functioning AVF. Pt was at HD today when they had difficulty accessing the fistula. Pt's last HD was 2 days ago. Pt has no complaints. Denies CP/SOB. - Physicial Exam PE: 11/09/19 17:18 "GENERAL: Awake, alert, and fully oriented, in no acute distress. HEAD: No signs of trauma EYES: PERRLA, EOMI, sclera anicteric, conjunctiva clear ENT: Auricles normal inspection, hearing grossly normal, nares patent, oropharynx clear without exudates. Moist mucosa NECK: Nontender, no stepoffs, Normal ROM, supple, no lymphadenopathy, JVD, or masses LUNGS: Breath sounds equal, clear to auscultation bilaterally. No wheezes, and no crackles HEART: Regular rate and rhythm, normal S1 and S2, no murmurs, rubs or gallops ABDOMEN: Soft, nontender, normoactive bowel sounds. No guarding, no rebound. No masses EXTREMITIES: + LUE AVF with no palpable thrill, Normal range of motion, no edema. No clubbing or cyanosis. No cords, erythema, or tenderness NEUROLOGICAL: Cranial nerves II through XII intact. 5/5 strength and sensation in all extremities, Normal speech, normal gait, normal cerebellar function SKIN: Warm, Dry, normal turgor, no rashes or lesions noted. - Medical Decision Making 11/09/19 17:18 59 F with non-functioning LUE AVF. Will evaluate for possible clot. - Labs - US fistula - Vascular and renal c/s
[2019-11-09 17:45] LABS: BASO % 0.5 % (0-2.0); EOS % 5.1 % (0-4.5); HEMATOCRIT 25.8 % (32.4-45.2); HEMOGLOBIN 8.7 GM/dL (10.7-15.3); LYMPH % 16.5 % (8-40); MCH 34.9 pg (25.7-33.7); MCHC 33.6 g/dl (32.0-36.0); MEAN CELL VOLUME 103.9 fl (80-96); MEAN PLT VOLUME 8.6 fl (7.5-11.1); MONO % 8.9 % (3.8-10.2); PLATELET COUNT 130 K/MM3 (134-434); RBC 2.49 M/mm3 (3.60-5.2); RDW 14.1 % (11.6-15.6); WHITE BLOOD COUNT 5.4 K/mm3 (4.0-10.0)
[2019-11-09 17:58] LABS: INR 0.95 (0.83-1.09); PROTHROMBIN TIME (PATIENT) 11.2 SEC (9.7-13.0)
[2019-11-09 18:26] LABS: ALBUMIN 3.2 g/dl (3.4-5.0); BILIRUBIN,TOTAL 0.3 mg/dL (0.2-1); MAGNESIUM 3.2 mg/dL (1.8-2.4); POTASSIUM 5.8 mmol/L (3.5-5.1); TOT PROT 6.2 g/dl (6.4-8.2)
[2019-11-09 18:28] LABS: BLOOD UREA NITROGEN 105.2 mg/dL (7-18)
[2019-11-09 18:29] LABS: CREATININE 7.4 mg/dL (0.55-1.3)
--- NOTE | 2019-11-09 18:34 | CONSULT ---
Consult Consult Specialty:: Nephrology Reason for Consultation:: esrd - History of Present Illness Chief Complaint: clotted graft History of Present Illness: Pt is a 59 year old female with pmhx of esrd and chronic resp failure with trache who was sent in for clotted av access. She last had HD on Tuesday. She is going for a thrombectomy tomorrow. She is awake and alert. She denies shortness of breath. She denies chest pain or palpitations. She denies fevers or chills. 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 Cardio/Vascular: Yes: HTN, Hyperlipdemia Renal/: Yes: Renal Failure, Hemodialysis - Past Surgical History Past Surgical History: Yes: AV Fistula/Graft - Alcohol/Substance Use Hx Alcohol Use: No - Smoking History Smoking history: Never smoked Have you smoked in the past 12 months: No Aproximately how many cigarettes per day: 40 If you are a former smoker, when did you quit?: 2017 - Social History ADL: Support Services History of Recent Travel: No Home Medications - Allergies Allergies/Adverse Reactions: Allergies Allergy/AdvReac Type Severity Reaction Status Date / Time SHAHBAZ Inhibitors Allergy Verified 09/22/18 18:58 codeine Allergy Verified 09/22/18 18:58 diphenhydramine Allergy Verified 09/22/18 18:58 [From Benadryl] heparin Allergy Verified 09/22/18 18:58 lisinopril Allergy Verified 09/22/18 18:58 - Home Medications Home Medications: Ambulatory Orders Amlodipine Besylate [Norvasc -] 10 mg PO DAILY tablet 06/24/18 levETIRAcetam [Keppra -] 250 mg PO BID tablet 06/24/18 Acetaminophen 650 mg PO PRN PRN 07/05/18 Mirtazapine [Remeron -] 15 mg PO HS 08/07/18 Albuterol 0.083% Nebulizer Liza [Ventolin 0.083% Nebulizer Soln -] 2.5 mg NEB RQID 08/08/18 cloNIDine HCL [Catapres -] 0.1 mg PO BID 08/08/18 clonazePAM [Klonopin -] 0.5 mg PO TID 08/08/18 Acetylcysteine Po/INH 20% [Mucomyst 20 Oral / INH Use Only*] 800 mg NEB RQID vial 09/25/18 Carbidopa/Levodopa 25/100 [Sinemet 25/100 -] 1 each PO TID tablet 09/25/18 Benztropine Mesylate [Cogentin -] 1 tab PO DAILY 10/22/19 Dextromethorphan HBr/Quinidine [Nuedexta 20-10 mg Capsule] 1 tab PO BID Entacapone 1 tab PO TID 10/22/19 Nystatin Cream [Mycostatin Cream -] 1 applic TD BID 10/22/19 Phenytoin 1 tab PO HS 10/22/19 Pregabalin 1 cap PO TID 10/22/19 Rivaroxaban [Xarelto] 20 mg PO DAILY 10/22/19 hydrALAZINE HCL [Apresoline -] 25 mg PO TID 10/22/19 Budesonide/Formeterol Fumarate [SYMBICORT 160/4.5mcg -] 2 puff IH BID 11/09/19 Calcium Carbonate [Antacid Calcium] 215 mg PO DAILY PRN 11/09/19 Phenytoin Na Extended [Dilantin -] 200 mg PO DAILY 11/09/19 Phenytoin Na Extended [Dilantin -] 200 mg PO HS 11/09/19 Sennosides [Senna] 8.6 mg PO HS 11/09/19 Vitamin B Comp W-C [Nephro-Denny -] 0.8 mg PO DAILY 11/09/19 Family Medical History Family History: Denies Review of Systems - Review of Systems Constitutional: reports: No Symptoms Eyes: reports: No Symptoms HENT: reports: No Symptoms Neck: reports: No Symptoms Cardiovascular: reports: No Symptoms Respiratory: reports: Other (trache) Genitourinary: reports: No Symptoms Musculoskeletal: reports: No Symptoms Neurological: reports: No Symptoms Endocrine: reports: No Symptoms Hematology/Lymphatic: reports: No Symptoms Psychiatric: reports: No Symptoms Physical Exam Vital Signs: Vital Signs Temperature 97.9 F 11/09/19 15:20 Pulse Rate 80 11/09/19 15:20 Respiratory Rate 16 11/09/19 15:20 Blood Pressure 126/51 L 11/09/19 15:20 O2 Sat by Pulse Oximetry (%) 100 11/09/19 15:30 Constitutional: Yes: Calm Eyes: Yes: Conjunctiva Clear HENT: Yes: Atraumatic Neck: Yes: Other (trache) Cardiovascular: Yes: S1, S2 Respiratory: Yes: Other (pt with trache colar) Gastrointestinal: Yes: Soft Renal/: Yes: Incontinence Musculoskeletal: Yes: WNL Edema: No Neurological: Yes: Oriented Psychiatric: Yes: Oriented Problem List - Problems (1) AV fistula occlusion Code(s): T82.898A - OTH COMPLICATION OF VASCULAR PROSTH DEV/GRFT, INIT Qualifiers: Encounter type: initial encounter Qualified Code(s): T82.898A - Other specified complication of vascular prosthetic devices, implants and grafts, initial encounter (2) ESRD (end stage renal disease) on dialysis Code(s): N18.6 - END STAGE RENAL DISEASE; Z99.2 - DEPENDENCE ON RENAL DIALYSIS Assessment/Plan Impression 1. ESRD 2. occluded graft 3. epilepsy 4. chronic resp failure on trache 5. HTN 6. anemia Plan - pt getting thrombectomy tomorrow - follow labs - hd tomorrow, orders written - vascular consulted - discussed with ER - HD AVF, 3 hrs, 450 abf, regular dialyzer, 2k standard bath, aranesp 40, venofer 50 - pt has a heparin allergy
[2019-11-09] MEDS ORDERED: SODIUM CHLORIDE 250 ML IV PRN (18:35)
[2019-11-09] MEDS ORDERED: ACETAMINOPHEN 325 MG TABLET (FP) PO PRN ×2 (20:16→22:34)
[2019-11-09] MEDS ORDERED: CALCIUM CARBONATE 650 MG TABLET PO PRN (20:16)
--- NOTE | 2019-11-09 20:31 | HP ---
Admitting History and Physical - Primary Care Physician PCP: Marleny Ortega - Admission Chief Complaint: Non-working Fistula History of Present Illness: This is a 59 y/o woman from [facility] with a PMHx of ESRD (M/W/F dialysis), Chronic Respiratory Failure s/p Trach, Asthma, HTN, Seizure Disorder, Dysphasia. Who presents for evaluation of LUE fistula occlusion. Patient's last full dialysis was Tuesday. 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 Cardiovascular: Yes: CAD, HTN, Hyperlipdemia Renal/: Yes: Renal Failure, Hemodialysis Reproductive: Yes: Postmenopausal - Past Surgical History Past Surgical History: Yes: AV Fistula/Graft - Smoking History Smoking history: Former smoker Have you smoked in the past 12 months: No Aproximately how many cigarettes per day: 40 If you are a former smoker, when did you quit?: 2017 - Alcohol/Substance Use Hx Alcohol Use: No History of Substance Use: reports: None - Social History Usual Living Arrangement: Yes: [facility] ADL: Support Services History of Recent Travel: No Home Medications - Allergies Allergies/Adverse Reactions: Allergies Allergy/AdvReac Type Severity Reaction Status Date / Time SHAHBAZ Inhibitors Allergy Verified 09/22/18 18:58 codeine Allergy Verified 09/22/18 18:58 diphenhydramine Allergy Verified 09/22/18 18:58 [From Benadryl] heparin Allergy Verified 09/22/18 18:58 lisinopril Allergy Verified 09/22/18 18:58 - Home Medications Home Medications: Ambulatory Orders Amlodipine Besylate [Norvasc -] 10 mg PO DAILY tablet 06/24/18 levETIRAcetam [Keppra -] 250 mg PO BID tablet 06/24/18 Acetaminophen 650 mg PO PRN PRN 07/05/18 Mirtazapine [Remeron -] 15 mg PO HS 08/07/18 Albuterol 0.083% Nebulizer Liza [Ventolin 0.083% Nebulizer Soln -] 2.5 mg NEB RQID 08/08/18 cloNIDine HCL [Catapres -] 0.1 mg PO BID 08/08/18 clonazePAM [Klonopin -] 0.5 mg PO 08/08/18 Acetylcysteine Po/INH 20% [Mucomyst 20 Oral / INH Use Only*] 800 mg NEB RQID vial 09/25/18 Carbidopa/Levodopa 25/100 [Sinemet 25/100 -] 1 each PO TID tablet 09/25/18 Benztropine Mesylate [Cogentin -] 1 tab PO DAILY 10/22/19 Dextromethorphan HBr/Quinidine [Nuedexta 20-10 mg Capsule] 1 tab PO BID Entacapone 1 tab PO TID 10/22/19 Nystatin Cream [Mycostatin Cream -] 1 applic TD BID 10/22/19 Phenytoin 1 tab PO HS 10/22/19 Pregabalin 1 cap PO TID 10/22/19 Rivaroxaban [Xarelto] 20 mg PO DAILY 10/22/19 hydrALAZINE HCL [Apresoline -] 25 mg PO TID 10/22/19 Budesonide/Formeterol Fumarate [SYMBICORT 160/4.5mcg -] 2 puff IH BID 11/09/19 Calcium Carbonate [Antacid Calcium] 215 mg PO DAILY PRN 11/09/19 Phenytoin Na Extended [Dilantin -] 200 mg PO DAILY 11/09/19 Phenytoin Na Extended [Dilantin -] 200 mg PO HS 11/09/19 Sennosides [Senna] 8.6 mg PO HS 11/09/19 Vitamin B Comp W-C [Nephro-Denny -] 0.8 mg PO DAILY 11/09/19 Family Medical History Family History: Unable to Obtain Review of Systems - Review of Systems Constitutional: reports: No Symptoms Eyes: reports: No Symptoms HENT: reports: No Symptoms Neck: reports: No Symptoms Cardiovascular: reports: No Symptoms Respiratory: reports: No Symptoms Gastrointestinal: reports: No Symptoms Genitourinary: reports: No Symptoms Breasts: reports: No Symptoms Reported Musculoskeletal: reports: Back Pain Integumentary: reports: No Symptoms Neurological: reports: No Symptoms Endocrine: reports: No Symptoms Hematology/Lymphatic: reports: No Symptoms Psychiatric: reports: No Symptoms Pain Intensity: 4 Physical Examination Vital Signs: Vital Signs Temperature 97.9 F 11/09/19 15:20 Pulse Rate 72 11/09/19 18:45 Respiratory Rate 18 11/09/19 18:45 Blood Pressure 136/61 11/09/19 18:45 O2 Sat by Pulse Oximetry (%) 100 11/09/19 18:45 Constitutional: Yes: Well Nourished, Anxious Eyes: Yes: WNL, Conjunctiva Clear, EOM Intact, PERRL HENT: Yes: WNL, Atraumatic, Normocephalic Neck: Yes: Supple, Other (trach to O2 collar) Cardiovascular: Yes: Regular Rate and Rhythm, S1, S2 Respiratory: Yes: Diminished, Other (trach with collar) Gastrointestinal: Yes: WNL, Normal Bowel Sounds, Soft Breast(s): Yes: WNL Extremities: Yes: Other (AV Graft to LUE- no thrill, no bruit) Edema: No Peripheral Pulses WNL: Yes Neurological: Yes: WNL, Alert, Oriented, Cran Nerves II-XII Intact ...Motor Strength: WNL Psychiatric: Yes: WNL, Alert, Oriented Labs: CBC, BMP 11/09/19 16:20 11/09/19 16:20 Laboratory Results - last 24 hr 11/09/19 11/09/19 11/09/19 16:20 16:20 16:20 WBC 5.4 RBC 2.49 L Hgb 8.7 L Hct 25.8 L MCV 103.9 H MCH 34.9 H MCHC 33.6 RDW 14.1 D Plt Count 130 L D MPV 8.6 D Absolute Neuts (auto) 3.8 Neutrophils % 69.0 Lymphocytes % 16.5 Monocytes % 8.9 Eosinophils % 5.1 H Basophils % 0.5 Nucleated RBC % 0 PT with INR INR PTT (Actin FS) 27.1 Sodium 136 Potassium 5.8 H Chloride 99 Carbon Dioxide 24 Anion Gap 12 BUN 105.2 H* Creatinine 7.4 H* Est GFR (CKD-EPI)AfAm 6.26 Est GFR (CKD-EPI)NonAf 5.40 Random Glucose 90 Calcium 9.0 Magnesium 3.2 H Total Bilirubin 0.3 AST 29 ALT 14 Alkaline Phosphatase 138 H Total Protein 6.2 L Albumin 3.2 L Blood Type Antibody Screen 11/09/19 11/09/19 16:20 16:20 WBC RBC Hgb Hct MCV MCH MCHC RDW Plt Count MPV Absolute Neuts (auto) Neutrophils % Lymphocytes % Monocytes % Eosinophils % Basophils % Nucleated RBC % PT with INR 11.20 INR 0.95 PTT (Actin FS) Sodium Potassium Chloride Carbon Dioxide Anion Gap BUN Creatinine Est GFR (CKD-EPI)AfAm Est GFR (CKD-EPI)NonAf Random Glucose Calcium Magnesium Total Bilirubin AST ALT Alkaline Phosphatase Total Protein Albumin Blood Type A POSITIVE Antibody Screen Negative Intake & Output 11/07/19 11/08/19 11/09/19 11/10/19 23:59 23:59 23:59 23:59 Intake Total 150 Balance 150 Weight 86.999 kg Current Medications Generic Name Dose Route Start Last Admin Trade Name Freq PRN Reason Stop Dose Admin Acetaminophen 650 mg 11/09/19 22:34 Tylenol - PO Q6H PRN PAIN LEVEL 6-10 Albuterol Sulfate 1 amp 11/10/19 08:00 Ventolin 0.083% Nebulizer Soln - NEB RQID TREVA Amlodipine Besylate 10 mg 11/10/19 10:00 Norvasc - PO DAILY TREVA Benztropine Mesylate 0.5 mg 11/10/19 10:00 Cogentin - PO DAILY TREVA Budesonide/Formoterol Fumarate 2 puff 11/09/19 22:00 11/09/19 23:35 Symbicort 160/4.5mcg - IH 2 puff BID TREVA Administration Calcium Carbonate 650 mg 11/09/19 20:16 Calcium Carbonate - PO DAILY PRN INDIGESTION Carbidopa/Levodopa 1 each 11/09/19 22:00 11/09/19 23:34 Sinemet 25/100 - PO 1 each TID TREVA Administration Clonazepam 0.5 mg 11/12/19 07:00 Klonopin - PO MoWeFr@0700 TREVA Clonidine 0.1 mg 11/09/19 22:00 11/09/19 23:32 Catapres - PO 0.1 mg BID TREVA Administration Entacapone 200 mg 11/09/19 22:00 11/09/19 23:30 Comtan - PO 200 mg TID TREVA Administration Epoetin Raymond 8,000 unit 11/10/19 18:35 Epogen - IVPUSH 11/10/19 18:36 ONCE ONE Hydralazine HCl 25 mg 11/09/19 22:00 11/09/19 23:34 Apresoline - PO 25 mg TID TREVA Administration Sodium Chloride 250 mls @ 3,000 mls/hr 11/09/19 18:35 Normal Saline - IV 11/10/19 18:35 PRN PRN Hypotension during Dialysis Levetiracetam 250 mg 11/09/19 22:00 11/09/19 23:33 Keppra - PO 250 mg BID TREVA Administration Mirtazapine 15 mg 11/09/19 22:00 11/09/19 23:31 Remeron - PO 15 mg HS TREVA Administration Multivit/Ca Carb/B Cmplx/FA/Prenat 1 tablet 11/10/19 10:00 Nephro-Denny - PO DAILY TREVA Nystatin 1 applic 11/09/19 22:00 11/09/19 23:37 Mycostatin Cream - TP 1 applic BID TREVA Administration Phenytoin Sodium 50 mg 11/09/19 22:00 11/09/19 23:36 Dilantin Chewable Tablet - PO 50 mg HS TREVA Administration Phenytoin Sodium 200 mg 11/10/19 10:00 Dilantin - PO DAILY TREVA Phenytoin Sodium 200 mg 11/09/19 22:00 11/09/19 23:32 Dilantin - PO 200 mg HS TREVA Administration Pregabalin 50 mg 11/09/19 22:00 11/09/19 23:33 Lyrica - PO 50 mg TID TREVA Administration Rivaroxaban 20 mg 11/10/19 18:00 Xarelto PO DAILY@1800 TREVA Senna 1 tab 11/09/19 22:00 11/09/19 23:34 Senna - PO 1 tab HS TREVA Administration Sevelamer Carbonate 2,400 mg 11/09/19 20:30 11/09/19 23:36 Renvela - PO 2,400 mg TIDCM TREVA Administration Imaging - Results Ultrasound: Report Reviewed, Image Reviewed Problem List - Problems (1) AV fistula occlusion Assessment/Plan: Duplex of LUE- Fistula Occlusion Vascular Consult- aware per ED resident Scheduled for OR tomorrow NPO Neurovascular checks Hold Xarelto Monitor vitals Code(s): T82.898A - OTH COMPLICATION OF VASCULAR PROSTH DEV/GRFT, INIT Qualifiers: Encounter type: initial encounter Qualified Code(s): T82.898A - Other specified complication of vascular prosthetic devices, implants and grafts, initial encounter (2) ESRD (end stage renal disease) on dialysis Assessment/Plan: Appreciate Molder Labels Consult- HD Management Monitor renal failure Monitor for fluid overload Monitor vitals Avoid Nephrotoxic Drugs Code(s): N18.6 - END STAGE RENAL DISEASE; Z99.2 - DEPENDENCE ON RENAL DIALYSIS (3) Tracheostomy dependent Assessment/Plan: O2- Trach Collar Duonebs Appreciate Pulmonology consult Continue home meds Monitor vitals Aspiration Precautions Code(s): Z93.0 - TRACHEOSTOMY STATUS (4) Anemia Assessment/Plan: Likely secondary to CKD Hgb 8.7 at baseline Will transfuse if Hgb < 7.0 Monitor CBC Code(s): D64.9 - ANEMIA, UNSPECIFIED (5) HTN (hypertension) Assessment/Plan: stable Monitor BP Continue home meds Code(s): I10 - ESSENTIAL (PRIMARY) HYPERTENSION (6) Seizure disorder Assessment/Plan: stable Continue Keppra Code(s): G40.909 - EPILEPSY, UNSP, NOT INTRACTABLE, WITHOUT STATUS EPILEPTICUS Assessment/Plan This is a 59 y/o woman from [facility] with a PMHx of ESRD (M/W/F dialysis), Chronic Respiratory Failure s/p Trach, Asthma, HTN, Seizure Disorder, Dysphasia. Admitted for Av Graft Occlusion, ESRD for further evaluation of their emergent condition Plan: See Problem List FEN Fluid Restriction Replete lytes prn NPO DVT ppx OOB SCDs Hold Xarelto- OR Dispo: Requires Inpatient Care Visit type - Emergency Visit Emergency Visit: Yes ED Registration Date: 11/09/19 Care time: The patient presented to the Emergency Department on the above date and was hospitalized for further evaluation of their emergent condition. - New Patient This patient is new to me today: Yes Date on this admission: 11/09/19 - Critical Care Critical Care patient: No
[2019-11-09] MEDS ORDERED: PHENYTOIN NA EXTENDED 100 MG CAPSULE (FP) PO SCH (22:00)
[2019-11-09] MEDS ORDERED: SENNOSIDES 8.6MG TABLET (FP) PO SCH (22:00)
[2019-11-09] MEDS ORDERED: PHENYTOIN 50 MG TAB.CHEW PO SCH (22:00)
[2019-11-09] MEDS ORDERED: MIRTAZAPINE 15 MG TABLET (FP) PO SCH (22:00)
[2019-11-09] MEDS: ENTACAPONE 200 MG TABLET PO SCH (23:30)
[2019-11-09] MEDS: cloNIDine HCL 0.1 MG TABLET PO SCH (23:32)
[2019-11-09] MEDS: PREGABALIN 50 MG CAPSULE PO SCH (23:33)
[2019-11-09] MEDS: levETIRAcetam 250 MG TABLET PO SCH (23:33)
[2019-11-09] MEDS: CARBIDOPA/LEVODOPA 25/100 TABLET (FP) PO SCH (23:34)
[2019-11-09] MEDS: hydrALAZINE HCL 25 MG TABLET (FP) PO SCH (23:34)
[2019-11-09] MEDS: BUDESONIDE/FORMETEROL FUMARATE 160/4.5 mcg INHALER IH SCH (23:35)
[2019-11-09] MEDS: SEVELAMER CARBONATE 800 MG TAB (FP) PO SCH (23:36)
[2019-11-09] MEDS: NYSTATIN 100,000 UNIT/GM TOPICAL CREAM 15 GM TUBE TP SCH (23:37)
[2019-11-10 02:12] VITALS: BMI 31.8
[2019-11-10] MEDS: ALBUTEROL SO4 0.083% IH SOL 2.5 MG/3 ML VIAL.NEB. NEB SCH ×4 (07:30→20:00)
[2019-11-10] MEDS ORDERED: ceFAZolin SODIUM 1 GM VIAL IVPB ONE (08:25)
[2019-11-10] MEDS: SEVELAMER CARBONATE 800 MG TAB (FP) PO SCH ×4 (08:27→17:45)
[2019-11-10] MEDS: CARBIDOPA/LEVODOPA 25/100 TABLET (FP) PO SCH ×4 (08:28→23:40)
[2019-11-10] MEDS: PREGABALIN 50 MG CAPSULE PO SCH ×4 (08:28→23:42)
[2019-11-10] MEDS: hydrALAZINE HCL 25 MG TABLET (FP) PO SCH ×3 (08:28→23:41)
[2019-11-10] MEDS: ENTACAPONE 200 MG TABLET PO SCH ×4 (08:28→23:48)
[2019-11-10] MEDS ORDERED: PROPOFOL 20 ML ONE ×3 (08:40→10:14)
[2019-11-10] MEDS ORDERED: LIDOCAINE HCL 1%, 10 MG/ML (20ML VIAL) ONE (08:40)
[2019-11-10] MEDS ORDERED: MIDAZOLAM HCL 2 MG/2 ML SINGLE DOSE VIAL ONE (08:40)
[2019-11-10] MEDS ORDERED: LIDOCAINE HCL/PF 2% SDV 5ML VIAL ONE (08:46)
[2019-11-10] MEDS ORDERED: LIDOCAINE HCL 1%, 10 MG/ML (20ML VIAL) INF ONE (09:45)
[2019-11-10] MEDS ORDERED: ceFAZolin SODIUM 1 GM VIAL ONE (09:49)
[2019-11-10] MEDS ORDERED: PHENYTOIN NA EXTENDED 100 MG CAPSULE (FP) PO SCH ×2 (10:00→22:00)
[2019-11-10] MEDS ORDERED: BENZTROPINE MESYLATE 0.5 MG TABLET (FP) PO SCH (10:00)
[2019-11-10] MEDS ORDERED: amLODIPine BESYLATE 10 MG TABLET (FP) PO SCH (10:00)
[2019-11-10] MEDS ORDERED: VITAMIN B COMP W-C 1 EA TABLET PO SCH (10:00)
--- NOTE | 2019-11-10 10:51 | EKG ---
Test Reason : Blood Pressure : / mmHG Vent. Rate : 077 BPM Atrial Rate : 077 BPM P-R Int : 194 ms QRS Dur : 092 ms QT Int : 410 ms P-R-T Axes : 057 071 068 degrees QTc Int : 463 ms NORMAL SINUS RHYTHM POSSIBLE LEFT ATRIAL ENLARGEMENT WHEN COMPARED WITH ECG OF 22-SEP-2018 20:15, NO SIGNIFICANT CHANGE WAS FOUND Confirmed by KAITLYNN STRICKLAND MD ([id number]) on 11/10/2019 10:50:59 AM Referred By: Confirmed By:KAITLYNN STRICKLAND MD
[2019-11-10] MEDS ORDERED: SODIUM CHLORIDE 1,000 ML IV SCH ×2 (11:15→12:13)
--- NOTE | 2019-11-10 11:15 | OP ---
Operative Note - Note: Operative Date: 11/10/19 Pre-Operative Diagnosis: Clotted left avg Operation: Venogram, suction thrombectomy, venoplasty left avg Post-Operative Diagnosis: Same as Pre-op Surgeon: Murali Paz Anesthesia: Fractional Estimated Blood Loss (mls): 50 Operative Report Dictated: Yes
[2019-11-10] MEDS ORDERED: RIVAROXABAN 20 MG TABLET PO ONE (11:30)
--- NOTE | 2019-11-10 11:52 | PN ---
Progress Note (short form) - Note Progress Note: Comfortable s/p thrombectomy-- left avg- clotted Vital Signs Temp 97.4 F L 11/10/19 10:57 Pulse 63 11/10/19 11:30 Resp 17 11/10/19 11:30 BP 162/58 L 11/10/19 11:30 Pulse Ox 100 11/10/19 11:30 Intake & Output 11/09/19 11/09/19 11/10/19 11:59 23:59 11:59 Intake Total 504 200 Balance 504 200 Weight 191 lb 12.8 oz 191 lb 12.8 oz Intake: IV 0 200 saline lock 0 0 Oral 504 Other: Voiding Method Diaper Diaper # Unmeasured Voids Void 1 Bowel Movement No No Height 5 ft 5 in Body Mass Index (BMI) 31.8 Weight Measurement Method Patient Lift Scale Patient Lift Scale Active Medications Acetaminophen (Tylenol -) 650 mg PO Q6H PRN PRN Reason: PAIN LEVEL 6-10 Albuterol Sulfate (Ventolin 0.083% Nebulizer Soln -) 1 amp NEB RQID [facility] Last Admin: 11/10/19 11:30 Dose: Not Given Amlodipine Besylate (Norvasc -) 10 mg PO DAILY [facility] Benztropine Mesylate (Cogentin -) 0.5 mg PO DAILY [facility] Budesonide/Formoterol Fumarate (Symbicort 160/4.5mcg -) 2 puff IH BID [facility] Last Admin: 11/09/19 23:35 Dose: 2 puff Calcium Carbonate (Calcium Carbonate -) 650 mg PO DAILY PRN PRN Reason: INDIGESTION Carbidopa/Levodopa (Sinemet 25/100 -) 1 each PO TID [facility] Last Admin: 11/10/19 10:43 Dose: Not Given Clonazepam (Klonopin -) 0.5 mg PO MoWeFr@0700 [facility] Clonidine (Catapres -) 0.1 mg PO BID [facility] Last Admin: 11/09/19 23:32 Dose: 0.1 mg Entacapone (Comtan -) 200 mg PO TID [facility] Last Admin: 11/10/19 10:43 Dose: Not Given Epoetin Raymond (Epogen -) 8,000 unit IVPUSH ONCE ONE Stop: 11/10/19 18:36 Fentanyl (Sublimaze Injection -) 50 mcg IVPUSH [id number] PRN PRN Reason: PAIN-PACU ORDER X 4 DOSES ONLY Hydralazine HCl (Apresoline -) 25 mg PO TID [facility] Last Admin: 11/10/19 08:28 Dose: 25 mg Sodium Chloride (Normal Saline -) 250 mls @ 3,000 mls/hr IV PRN PRN PRN Reason: Hypotension during Dialysis Stop: 11/10/19 18:35 Sodium Chloride (Normal Saline -) 1,000 mls @ 42 mls/hr IV ASDIR [facility] Levetiracetam (Keppra -) 250 mg PO BID [facility] Last Admin: 11/09/19 23:33 Dose: 250 mg Mirtazapine (Remeron -) 15 mg PO [facility] Last Admin: 11/09/19 23:31 Dose: 15 mg Multivit/Ca Carb/B Cmplx/FA/Prenat (Nephro-Denny -) 1 tablet PO DAILY [facility] Nystatin (Mycostatin Cream -) 1 applic TP BID [facility] Last Admin: 11/09/19 23:37 Dose: 1 applic Phenytoin Sodium (Dilantin Chewable Tablet -) 50 mg PO [facility] Last Admin: 11/09/19 23:36 Dose: 50 mg Phenytoin Sodium (Dilantin -) 200 mg PO DAILY [facility] Phenytoin Sodium (Dilantin -) 200 mg PO [facility] Last Admin: 11/09/19 23:32 Dose: 200 mg Pregabalin (Lyrica -) 50 mg PO TID [facility] Last Admin: 11/10/19 10:43 Dose: Not Given Rivaroxaban (Xarelto) 20 mg PO DAILY@1800 [facility] Senna (Senna -) 1 tab PO [facility] Last Admin: 11/09/19 23:34 Dose: 1 tab Sevelamer Carbonate (Renvela -) 2,400 mg PO TIDCM [facility] Last Admin: 11/10/19 10:44 Dose: Not Given CBC, BMP 11/09/19 16:20 11/09/19 16:20 Physical Comfortable s/p trach lungs- Bilateral breath sounds cvs- s1, s2 rrr abd - soft ext- no edema a/p Pt 59 y/o woman from [facility] with a PMHx of ESRD (M/W/F dialysis), Chronic Respiratory Failure s/p Trach, Asthma, HTN, Seizure Disorder, Dysphasia. Who presents for evaluation of LUE fistula occlusion. Patient's last full dialysis was Tuesday. s/p thrombectomy comfortable continue same will need access-- will follow
[2019-11-10] MEDS ORDERED: CALCIUM CARBONATE 650 MG TABLET PO PRN (12:13)
[2019-11-10] MEDS ORDERED: SODIUM CHLORIDE 250 ML IV PRN (12:13)
[2019-11-10] MEDS ORDERED: ACETAMINOPHEN 325 MG TABLET (FP) PO PRN (12:13)
[2019-11-10] MEDS: cloNIDine HCL 0.1 MG TABLET PO SCH ×2 (12:36→23:40)
[2019-11-10] MEDS: NYSTATIN 100,000 UNIT/GM TOPICAL CREAM 15 GM TUBE TP SCH ×2 (12:37→23:43)
[2019-11-10] MEDS: levETIRAcetam 250 MG TABLET PO SCH ×2 (12:37→23:41)
[2019-11-10] MEDS: BUDESONIDE/FORMETEROL FUMARATE 160/4.5 mcg INHALER IH SCH ×2 (12:38→23:43)
--- NOTE | 2019-11-10 12:44 | PN ---
Progress Note (short form) - Note Progress Note: RENAL Pt denies complaints just had a procedure on access feels well Last Vital Signs Temp Pulse Resp BP Pulse Ox 97.9 F 60 18 170/56 L 100 11/10/19 11:45 11/10/19 11:45 11/10/19 11:45 11/10/19 11:45 11/10/19 11:45 lungs clear anteriorly cvs s1s2 rr abd soft ext no edema, no thrill or bruit CBC, BMP 11/09/19 16:20 11/09/19 16:20 Current Medications Generic Name Dose Route Start Last Admin Trade Name Freq PRN Reason Stop Dose Admin Acetaminophen 650 mg 11/10/19 12:13 Tylenol - PO Q6H PRN PAIN LEVEL 6-10 Albuterol Sulfate 1 amp 11/10/19 16:00 Ventolin 0.083% Nebulizer Soln - NEB RQID TREVA Amlodipine Besylate 10 mg 11/11/19 10:00 Norvasc - PO DAILY TREVA Benztropine Mesylate 0.5 mg 11/11/19 10:00 Cogentin - PO DAILY TREVA Budesonide/Formoterol Fumarate 2 puff 11/10/19 22:00 Symbicort 160/4.5mcg - IH BID TREVA Calcium Carbonate 650 mg 11/10/19 12:13 Calcium Carbonate - PO DAILY PRN INDIGESTION Carbidopa/Levodopa 1 each 11/10/19 14:00 Sinemet 25/100 - PO TID TREVA Clonazepam 0.5 mg 11/12/19 07:00 Klonopin - PO MoWeFr@0700 TREVA Clonidine 0.1 mg 11/10/19 22:00 Catapres - PO BID TREVA Entacapone 200 mg 11/10/19 14:00 Comtan - PO TID TREVA Epoetin Raymond 8,000 unit 11/10/19 18:35 Epogen - IVPUSH 11/10/19 18:36 ONCE ONE Fentanyl 50 mcg 11/10/19 12:13 Sublimaze Injection - IVPUSH [id number] PRN PAIN-PACU ORDER X 4 DOSES ONLY Hydralazine HCl 25 mg 11/10/19 14:00 Apresoline - PO TID [facility] Sodium Chloride 250 mls @ 3,000 mls/hr 11/10/19 12:13 Normal Saline - IV 11/10/19 18:35 PRN PRN Hypotension during Dialysis Sodium Chloride 1,000 mls @ 42 mls/hr 11/10/19 12:13 Normal Saline - IV ASDIR TREVA Levetiracetam 250 mg 11/10/19 22:00 Keppra - PO BID TREVA Mirtazapine 15 mg 11/10/19 22:00 Remeron - PO HS [facility] Multivit/Ca Carb/B Cmplx/FA/Prenat 1 tablet 11/11/19 10:00 Nephro-Denny - PO DAILY [facility] Nystatin 1 applic 11/10/19 22:00 Mycostatin Cream - TP BID [facility] Phenytoin Sodium 50 mg 11/10/19 22:00 Dilantin Chewable Tablet - PO HS [facility] Phenytoin Sodium 200 mg 11/11/19 10:00 Dilantin - PO DAILY TREVA Phenytoin Sodium 200 mg 11/10/19 22:00 Dilantin - PO HS [facility] Pregabalin 50 mg 11/10/19 14:00 Lyrica - PO TID [facility] Rivaroxaban 20 mg 11/10/19 18:00 Xarelto PO DAILY@1800 [facility] Senna 1 tab 11/10/19 22:00 Senna - PO HS [facility] Sevelamer Carbonate 2,400 mg 11/10/19 17:30 Renvela - PO TIDCM [facility] IMPRESSION esrd heparin allergy htn admitted with clotted access PLAN will need a catheter so she can get dialyzed will repeat labs before hd MV
--- NOTE | 2019-11-10 15:34 | PN ---
Progress Note (short form) - Note Progress Note: Vascular Surgery S/P thrombectomy. Graft went down. Pt will need permacath. Pt refusing shiley cath bedside. Will do permacath in am at 8am. Murali Paz DO
[2019-11-10] MEDS ORDERED: PT OWN MED DRAWER 7, Y5N ONE ×3 (15:57→19:01)
[2019-11-10 17:06] LABS: CALCIUM 8.6 mg/dL (8.5-10.1); POTASSIUM 5.6 mmol/L (3.5-5.1)
[2019-11-10 17:13] LABS: BLOOD UREA NITROGEN 112.5 mg/dL (7-18); CREATININE 8.6 mg/dL (0.55-1.3)
[2019-11-10] MEDS ORDERED: RIVAROXABAN 20 MG TABLET PO SCH (18:00)
[2019-11-10 18:27] LABS: HEMATOCRIT 27.7 % (32.4-45.2); HEMOGLOBIN 9.3 GM/dL (10.7-15.3); MCH 35.2 pg (25.7-33.7); MCHC 33.6 g/dl (32.0-36.0); MEAN CELL VOLUME 104.7 fl (80-96); MEAN PLT VOLUME 8.2 fl (7.5-11.1); PLATELET COUNT 144 K/MM3 (134-434); RBC 2.64 M/mm3 (3.60-5.2); RDW 14.3 % (11.6-15.6); WHITE BLOOD COUNT 7.1 K/mm3 (4.0-10.0)
[2019-11-10] MEDS ORDERED: EPOETIN ALFA 2,000 UNIT/1 ML VIAL IVPUSH ONE ×2 (18:35)
[2019-11-10] MEDS ORDERED: MIRTAZAPINE 15 MG TABLET (FP) PO SCH (22:00)
[2019-11-10] MEDS ORDERED: SENNOSIDES 8.6MG TABLET (FP) PO SCH (22:00)
[2019-11-10] MEDS ORDERED: PHENYTOIN 50 MG TAB.CHEW PO SCH (22:00)
[2019-11-11] MEDS: CARBIDOPA/LEVODOPA 25/100 TABLET (FP) PO SCH ×3 (05:42→22:29)
[2019-11-11] MEDS: hydrALAZINE HCL 25 MG TABLET (FP) PO SCH ×3 (05:42→22:28)
[2019-11-11] MEDS: PREGABALIN 50 MG CAPSULE PO SCH ×3 (05:42→22:29)
[2019-11-11] MEDS: ENTACAPONE 200 MG TABLET PO SCH ×3 (05:43→22:31)
[2019-11-11] MEDS: ALBUTEROL SO4 0.083% IH SOL 2.5 MG/3 ML VIAL.NEB. NEB SCH ×5 (07:30→20:38)
[2019-11-11] MEDS ORDERED: PROPOFOL 20 ML ONE ×2 (07:49)
[2019-11-11] MEDS ORDERED: LIDOCAINE HCL 1%, 10 MG/ML (20ML VIAL) ONE (07:59)
[2019-11-11] MEDS ORDERED: ARGATROBAN NR ONE (09:00)
[2019-11-11] MEDS ORDERED: DEXTROSE NR ONE (09:00)
[2019-11-11] MEDS ORDERED: amLODIPine BESYLATE 10 MG TABLET (FP) PO SCH (10:00)
[2019-11-11] MEDS ORDERED: PHENYTOIN NA EXTENDED 100 MG CAPSULE (FP) PO SCH ×2 (10:00→22:00)
[2019-11-11] MEDS ORDERED: VITAMIN B COMP W-C 1 EA TABLET PO SCH (10:00)
[2019-11-11] MEDS ORDERED: BENZTROPINE MESYLATE 0.5 MG TABLET (FP) PO SCH (10:00)
--- NOTE | 2019-11-11 10:21 | PN ---
Progress Note (short form) - Note Progress Note: pt seen/ examined-- going to or for access d/w Dr. Dory Paz also comfortable Vital Signs Temp 98.5 F 11/11/19 06:00 Pulse 75 11/11/19 06:00 Resp 18 11/11/19 06:00 BP 128/62 11/11/19 06:00 Pulse Ox 100 11/10/19 21:00 Intake & Output 11/10/19 11/10/19 11/11/19 11:59 23:59 11:59 Intake Total 250 500 20 Balance 250 500 20 Weight 191 lb 12.8 oz Intake: IV 250 0 saline lock 0 0 Oral 0 500 20 Other: Voiding Method Diaper Incontinent # Unmeasured Voids Void 2 1 Bowel Movement No No No Weight Measurement Method Patient Lift Scale Active Medications Acetaminophen (Tylenol -) 650 mg PO Q6H PRN PRN Reason: PAIN LEVEL 6-10 Albuterol Sulfate (Ventolin 0.083% Nebulizer Soln -) 1 amp NEB RQID [facility] Last Admin: 11/11/19 07:30 Dose: Not Given Amlodipine Besylate (Norvasc -) 10 mg PO DAILY [facility] Benztropine Mesylate (Cogentin -) 0.5 mg PO DAILY [facility] Budesonide/Formoterol Fumarate (Symbicort 160/4.5mcg -) 2 puff IH BID [facility] Last Admin: 11/10/19 23:43 Dose: 2 puff Calcium Carbonate (Calcium Carbonate -) 650 mg PO DAILY PRN PRN Reason: INDIGESTION Carbidopa/Levodopa (Sinemet 25/100 -) 1 each PO TID [facility] Last Admin: 11/11/19 05:42 Dose: 1 each Clonazepam (Klonopin -) 0.5 mg PO MoWeFr@0700 [facility] Clonidine (Catapres -) 0.1 mg PO BID [facility] Last Admin: 11/10/19 23:40 Dose: 0.1 mg Entacapone (Comtan -) 200 mg PO TID [facility] Last Admin: 11/11/19 05:43 Dose: 200 mg Epoetin Raymond (Epogen -) 8,000 unit IVPUSH ONCE ONE Stop: 11/10/19 18:36 Fentanyl (Sublimaze Injection -) 50 mcg IVPUSH [id number] PRN PRN Reason: PAIN-PACU ORDER X 4 DOSES ONLY Hydralazine HCl (Apresoline -) 25 mg PO TID [facility] Last Admin: 11/11/19 05:42 Dose: 25 mg Sodium Chloride (Normal Saline -) 250 mls @ 3,000 mls/hr IV PRN PRN PRN Reason: Hypotension during Dialysis Stop: 11/10/19 18:35 Sodium Chloride (Normal Saline -) 1,000 mls @ 42 mls/hr IV ASDIR [facility] Levetiracetam (Keppra -) 250 mg PO BID [facility] Last Admin: 11/10/19 23:41 Dose: 250 mg Mirtazapine (Remeron -) 15 mg PO [facility] Last Admin: 11/10/19 23:41 Dose: 15 mg Multivit/Ca Carb/B Cmplx/FA/Prenat (Nephro-Denny -) 1 tablet PO DAILY [facility] Nystatin (Mycostatin Cream -) 1 applic TP BID [facility] Last Admin: 11/10/19 23:43 Dose: 1 applic Phenytoin Sodium (Dilantin Chewable Tablet -) 50 mg PO [facility] Last Admin: 11/10/19 23:40 Dose: 50 mg Phenytoin Sodium (Dilantin -) 200 mg PO DAILY [facility] Phenytoin Sodium (Dilantin -) 200 mg PO [facility] Last Admin: 11/10/19 23:38 Dose: 200 mg Pregabalin (Lyrica -) 50 mg PO TID [facility] Last Admin: 11/11/19 05:42 Dose: 50 mg Rivaroxaban (Xarelto) 20 mg PO DAILY@1800 [facility] Senna (Senna -) 1 tab PO HS [facility] Last Admin: 11/10/19 23:40 Dose: 1 tab Sevelamer Carbonate (Renvela -) 2,400 mg PO TIDCM [facility] Last Admin: 11/10/19 17:45 Dose: 2,400 mg CBC, BMP 11/10/19 16:20 11/10/19 16:20 Physical Comfortable s/p trach lungs- Bilateral breath sounds cvs- s1, s2 rrr abd - soft ext- no edema a/p Pt 59 y/o woman from [facility] with a PMHx of ESRD (M/W/F dialysis), Chronic Respiratory Failure s/p Trach, Asthma, HTN, Seizure Disorder, Dysphasia. Who presents for evaluation of LUE fistula occlusion. Patient's last full dialysis was Tuesday. comfortable continue same will need access-- Or TODAY will follow Problem List - Problems (1) AV fistula occlusion Code(s): T82.898A - [facility] COMPLICATION OF VASCULAR PROSTH DEV/GRFT, INIT Qualifiers: Encounter type: initial encounter Qualified Code(s): T82.898A - Other specified complication of vascular prosthetic devices, implants and grafts, initial encounter (2) ESRD (end stage renal disease) on dialysis Code(s): N18.6 - END STAGE RENAL DISEASE; Z99.2 - DEPENDENCE ON RENAL DIALYSIS (3) HTN (hypertension) Code(s): I10 - ESSENTIAL (PRIMARY) HYPERTENSION (4) Seizure disorder Code(s): G40.909 - EPILEPSY, UNSP, NOT INTRACTABLE, WITHOUT STATUS EPILEPTICUS (5) Tracheostomy dependent Code(s): Z93.0 - TRACHEOSTOMY STATUS
[2019-11-11] MEDS ORDERED: MIDAZOLAM HCL 2 MG/2 ML SINGLE DOSE VIAL ONE (10:25)
[2019-11-11] MEDS ORDERED: ceFAZolin SODIUM 1 GM VIAL IVPB ONE (10:30)
[2019-11-11] MEDS ORDERED: LIDOCAINE HCL 1%, 10 MG/ML (20ML VIAL) INF ONE ×2 (10:48)
--- NOTE | 2019-11-11 11:06 | OP ---
Operative Note - Note: Operative Date: 11/11/19 Pre-Operative Diagnosis: ESRD Operation: Insertion of permacath Post-Operative Diagnosis: Same as Pre-op Surgeon: Murali Paz Anesthesia: Fractional Estimated Blood Loss (mls): 10 Operative Report Dictated: Yes
--- NOTE | 2019-11-11 11:16 | PN ---
Progress Note (short form) - Note Progress Note: 59F ESRD s/p venogram and aborted thrombectomy. Now s/p left permacath insertion under MAC. Vital Signs Temp 98.5 F 11/11/19 06:00 Pulse 75 11/11/19 06:00 Resp 18 11/11/19 06:00 BP 128/62 11/11/19 06:00 Pulse Ox 100 11/10/19 21:00 Intake & Output 11/10/19 11/10/19 11/11/19 11:59 23:59 11:59 Intake Total 250 500 120 Balance 250 500 120 Weight 191 lb 12.8 oz Intake: IV 250 100 saline lock 0 0 Oral 0 500 20 Other: Voiding Method Diaper Incontinent # Unmeasured Voids Void 2 1 Bowel Movement No No No Weight Measurement Method Patient Lift Scale CBC, BMP 11/10/19 16:20 11/10/19 16:20 - NO anesthesia complications - Pending renal F/U and HD session
[2019-11-11] MEDS ORDERED: CALCIUM CARBONATE 650 MG TABLET PO PRN (11:19)
[2019-11-11] MEDS ORDERED: EPOETIN ALFA 2,000 UNIT/1 ML VIAL IVPUSH ONE (11:19)
[2019-11-11] MEDS ORDERED: SODIUM CHLORIDE 1,000 ML IV SCH (11:19)
[2019-11-11] MEDS ORDERED: SODIUM CHLORIDE 250 ML IV PRN ×2 (11:19→17:00)
[2019-11-11] MEDS ORDERED: ACETAMINOPHEN 325 MG TABLET (FP) PO PRN (11:19)
[2019-11-11] MEDS ORDERED: NON-FORMULARY MED NR ONE (11:19)
[2019-11-11] MEDS ORDERED: PT OWN MED DRAWER 7, Y5N ONE ×2 (12:32→13:26)
[2019-11-11] MEDS: NYSTATIN 100,000 UNIT/GM TOPICAL CREAM 15 GM TUBE TP SCH ×2 (12:53→22:38)
[2019-11-11] MEDS: levETIRAcetam 250 MG TABLET PO SCH ×2 (12:53→22:28)
[2019-11-11] MEDS: BUDESONIDE/FORMETEROL FUMARATE 160/4.5 mcg INHALER IH SCH ×2 (12:53→22:38)
[2019-11-11] MEDS: SEVELAMER CARBONATE 800 MG TAB (FP) PO SCH ×3 (12:54→18:20)
[2019-11-11] MEDS: cloNIDine HCL 0.1 MG TABLET PO SCH ×2 (12:54→22:29)
--- NOTE | 2019-11-11 13:32 | PN ---
Progress Note (short form) - Note Progress Note: RENAL Feels tired had a permcath placed in left chest Last Vital Signs Temp Pulse Resp BP Pulse Ox 98.3 F 77 19 136/61 100 11/11/19 12:15 11/11/19 12:15 11/11/19 12:15 11/11/19 12:15 11/11/19 12:15 lungs clear anteriorly cvs s1s2 rr no rub abd soft ext no edema, no thrill or bruit on left avg CBC, BMP 11/10/19 16:20 11/10/19 16:20 Current Medications Generic Name Dose Route Start Last Admin Trade Name Freq PRN Reason Stop Dose Admin Acetaminophen 650 mg 11/11/19 11:19 Tylenol - PO Q6H PRN PAIN LEVEL 6-10 Albuterol Sulfate 1 amp 11/11/19 12:00 Ventolin 0.083% Nebulizer Soln - NEB RQID TREVA Amlodipine Besylate 10 mg 11/12/19 10:00 Norvasc - PO DAILY TREVA Benztropine Mesylate 0.5 mg 11/12/19 10:00 Cogentin - PO DAILY TREVA Budesonide/Formoterol Fumarate 2 puff 11/11/19 22:00 Symbicort 160/4.5mcg - IH BID TREVA Calcium Carbonate 650 mg 11/11/19 11:19 Calcium Carbonate - PO DAILY PRN INDIGESTION Carbidopa/Levodopa 1 each 11/11/19 14:00 Sinemet 25/100 - PO TID TREVA Clonazepam 0.5 mg 11/12/19 07:00 Klonopin - PO MoWeFr@0700 TREVA Clonidine 0.1 mg 11/11/19 22:00 Catapres - PO BID [facility] Entacapone 200 mg 11/11/19 14:00 Comtan - PO TID TREVA Epoetin Raymond 8,000 unit 11/11/19 11:19 Epogen - IVPUSH 11/11/19 11:20 ONCE ONE Fentanyl 50 mcg 11/11/19 11:19 Sublimaze Injection - IVPUSH [id number] PRN PAIN-PACU ORDER X 4 DOSES ONLY Hydralazine HCl 25 mg 11/11/19 14:00 Apresoline - PO TID [facility] Sodium Chloride 250 mls @ 3,000 mls/hr 11/11/19 11:19 Normal Saline - IV PRN PRN Hypotension during Dialysis Levetiracetam 250 mg 11/11/19 22:00 Keppra - PO BID TREVA Mirtazapine 15 mg 11/11/19 22:00 Remeron - PO HS TREVA Multivit/Ca Carb/B Cmplx/FA/Prenat 1 tablet 11/12/19 10:00 Nephro-Denny - PO DAILY TREVA Nystatin 1 applic 11/11/19 22:00 Mycostatin Cream - TP BID [facility]RE[facility] Phenytoin Sodium 50 mg 11/11/19 22:00 Dilantin Chewable Tablet - PO HS TREVA Phenytoin Sodium 200 mg 11/12/19 10:00 Dilantin - PO DAILY TREVA Phenytoin Sodium 200 mg 11/11/19 22:00 Dilantin - PO HS TREVA Pregabalin 50 mg 11/11/19 14:00 Lyrica - PO TID TREVA Rivaroxaban 20 mg 11/11/19 18:00 Xarelto PO DAILY@1800 [facility] Senna 1 tab 11/11/19 22:00 Senna - PO HS [facility] Sevelamer Carbonate 2,400 mg 11/11/19 12:00 Renvela - PO TIDCM TREVA IMPRESSION esrd heparin allergy htn admitted with clotted access had a permcath placed today PLAN will be dialyzed today using the catheter will repeat labs continue same meds MV
[2019-11-11] MEDS ORDERED: EPOETIN ALFA 6,000 UNIT, EPOETIN ALFA 2,000 UNIT IVPUSH ONE (17:00)
[2019-11-11] MEDS ORDERED: RIVAROXABAN 20 MG TABLET PO SCH (18:00)
[2019-11-11] MEDS: RIVAROXABAN 20 MG TABLET PO SCH (18:19)
[2019-11-11] MEDS ORDERED: PHENYTOIN 50 MG TAB.CHEW PO SCH (22:00)
[2019-11-11] MEDS ORDERED: SENNOSIDES 8.6MG TABLET (FP) PO SCH (22:00)
[2019-11-11] MEDS ORDERED: MIRTAZAPINE 15 MG TABLET (FP) PO SCH (22:00)
[2019-11-12] MEDS: hydrALAZINE HCL 25 MG TABLET (FP) PO SCH ×2 (06:14→15:52)
[2019-11-12] MEDS: PREGABALIN 50 MG CAPSULE PO SCH ×2 (06:15→15:53)
[2019-11-12] MEDS: CARBIDOPA/LEVODOPA 25/100 TABLET (FP) PO SCH ×2 (06:15→15:53)
[2019-11-12] MEDS: ENTACAPONE 200 MG TABLET PO SCH ×2 (06:16→15:53)
[2019-11-12] MEDS ORDERED: clonazePAM 0.5 MG TABLET PO SCH ×3 (07:00)
[2019-11-12] MEDS: ALBUTEROL SO4 0.083% IH SOL 2.5 MG/3 ML VIAL.NEB. NEB SCH ×3 (07:30→16:53)
[2019-11-12] MEDS: SEVELAMER CARBONATE 800 MG TAB (FP) PO SCH ×3 (08:43→17:48)
[2019-11-12] MEDS: cloNIDine HCL 0.1 MG TABLET PO SCH (09:48)
[2019-11-12] MEDS: NYSTATIN 100,000 UNIT/GM TOPICAL CREAM 15 GM TUBE TP SCH (09:50)
[2019-11-12] MEDS: levETIRAcetam 250 MG TABLET PO SCH (09:50)
[2019-11-12] MEDS: BUDESONIDE/FORMETEROL FUMARATE 160/4.5 mcg INHALER IH SCH (09:54)
[2019-11-12] MEDS ORDERED: amLODIPine BESYLATE 10 MG TABLET (FP) PO SCH (10:00)
[2019-11-12] MEDS ORDERED: VITAMIN B COMP W-C 1 EA TABLET PO SCH (10:00)
[2019-11-12] MEDS ORDERED: PHENYTOIN NA EXTENDED 100 MG CAPSULE (FP) PO SCH (10:00)
[2019-11-12] MEDS ORDERED: BENZTROPINE MESYLATE 0.5 MG TABLET (FP) PO SCH (10:00)
--- NOTE | 2019-11-12 10:58 | PN ---
Progress Note (short form) - Note Progress Note: VASCULAR SURGERY 59yo F s/p permacath placement. Pt seen and examined at bedside. Pt no complaints. Using permacath for HD without issue Last Vital Signs Temp Pulse Resp BP Pulse Ox 98.9 F 83 20 126/63 94 L 11/12/19 05:59 11/12/19 07:53 11/12/19 05:59 11/12/19 05:59 11/12/19 07:53 CBC, BMP 11/10/19 16:20 11/10/19 16:20 PE: Gen: a&O x3 Resp: breathing comfortably Chest: Permacath present on Rt chest, dressing taken down and no active bleeding. Incision clean with no erythema Problem List - Problems (1) ESRD (end stage renal disease) on dialysis Assessment/Plan: Plan -permacath appears to be functioning well, pt cleared for discharge from Vascular standpoint. Code(s): N18.6 - END STAGE RENAL DISEASE; Z99.2 - DEPENDENCE ON RENAL DIALYSIS
--- NOTE | 2019-11-12 11:43 | DS ---
Physical Examination Vital Signs: Vital Signs Temperature 98.9 F 11/12/19 05:59 Pulse Rate 83 11/12/19 07:53 Respiratory Rate 20 11/12/19 05:59 Blood Pressure 126/63 11/12/19 05:59 O2 Sat by Pulse Oximetry (%) 94 L 11/12/19 07:53 Findings/Remarks: Pt comfortable No complains except had small bleeding at Permacath site --Xarelto held today No bleeding today Constitutional: Yes: No Distress Neck: Yes: Supple, Other (s/p trach) Cardiovascular: Yes: Regular Rate and Rhythm Respiratory: Yes: Diminished Gastrointestinal: Yes: Soft Neurological: Yes: Alert Labs: CBC, BMP 11/10/19 16:20 11/10/19 16:20 Discharge Summary Problems reviewed: Yes Reason For Visit: END STAGE RENAL FAILURE ARTERIOVENOUS FISTULA Current Active Problems AV fistula occlusion (Acute) Hospital Course: s/p Permacath Failed avg Had dialysis yesterday Will d/c today after dialysis Restart on Xarelto tomorrow Meds reconcilled d/w RN also F/u vascular as advised for avf Condition: Stable - Instructions Referrals: Marlon Vazquez [Primary Care Provider] - Disposition: LONG TERM FACILITY - Home Medications Comprehensive Discharge Medication List: Ambulatory Orders Amlodipine Besylate [Norvasc -] 10 mg PO DAILY tablet 06/24/18 levETIRAcetam [Keppra -] 250 mg PO BID tablet 06/24/18 Acetaminophen 650 mg PO PRN PRN 07/05/18 Mirtazapine [Remeron -] 15 mg PO HS 08/07/18 Albuterol 0.083% Nebulizer Liza [Ventolin 0.083% Nebulizer Soln -] 2.5 mg NEB RQID 08/08/18 cloNIDine HCL [Catapres -] 0.1 mg PO BID 08/08/18 clonazePAM [Klonopin -] 0.5 mg PO 08/08/18 Acetylcysteine Po/INH 20% [Mucomyst 20 Oral / INH Use Only*] 800 mg NEB RQID vial 09/25/18 Carbidopa/Levodopa 25/100 [Sinemet 25/100 -] 1 each PO TID tablet 09/25/18 Benztropine Mesylate [Cogentin -] 1 tab PO DAILY 10/22/19 Dextromethorphan HBr/Quinidine [Nuedexta 20-10 mg Capsule] 1 tab PO BID Entacapone 1 tab PO TID 10/22/19 Nystatin Cream [Mycostatin Cream -] 1 applic TD BID 10/22/19 Phenytoin 1 tab PO HS 10/22/19 Pregabalin 1 cap PO TID 10/22/19 Rivaroxaban [Xarelto] 20 mg PO DAILY 10/22/19 hydrALAZINE HCL [Apresoline -] 25 mg PO TID 10/22/19 Budesonide/Formeterol Fumarate [SYMBICORT 160/4.5mcg -] 2 puff IH BID 11/09/19 Calcium Carbonate [Antacid Calcium] 215 mg PO DAILY PRN 11/09/19 Phenytoin Na Extended [Dilantin -] 200 mg PO HS 11/09/19 Sennosides [Senna] 8.6 mg PO HS 11/09/19 Vitamin B Comp W-C [Nephro-Denny -] 0.8 mg PO DAILY 11/09/19 Sevelamer Carbonate [Renvela -] 2,400 mg PO TIDCM tab 11/12/19
[2019-11-12] MEDS ORDERED: SODIUM CHLORIDE 250 ML IV PRN (12:24)
[2019-11-12 12:34] VITALS: TEMP 98.1
[2019-11-12] MEDS ORDERED: EPOETIN ALFA 10,000 UNIT/1 ML VIAL IVPUSH ONE (13:00)
[2019-11-12 13:22] LABS: HEMATOCRIT 21.5 % (32.4-45.2); HEMOGLOBIN 7.3 GM/dL (10.7-15.3); MCH 34.7 pg (25.7-33.7); MCHC 33.9 g/dl (32.0-36.0); MEAN CELL VOLUME 102.4 fl (80-96); PLATELET COUNT 118 K/MM3 (134-434); RDW 13.9 % (11.6-15.6)
[2019-11-12 13:56] LABS: BLOOD UREA NITROGEN 56.4 mg/dL (7-18); CALCIUM 8.3 mg/dL (8.5-10.1); CREATININE 5.6 mg/dL (0.55-1.3); POTASSIUM 4.3 mmol/L (3.5-5.1)
--- NOTE | 2019-11-12 15:07 | PN ---
Progress Note, Physician History of Present Illness: Pt seen and examined at bedside. She is awake and alert. She is tolerating HD. - Current Medication List Current Medications: Active Medications Acetaminophen (Tylenol -) 650 mg PO Q6H PRN PRN Reason: PAIN LEVEL 6-10 Albuterol Sulfate (Ventolin 0.083% Nebulizer Soln -) 1 amp NEB RQID [facility] Last Admin: 11/12/19 11:25 Dose: 1 amp Amlodipine Besylate (Norvasc -) 10 mg PO DAILY [facility] Last Admin: 11/12/19 09:50 Dose: 10 mg Benztropine Mesylate (Cogentin -) 0.5 mg PO DAILY [facility] Last Admin: 11/12/19 09:51 Dose: 0.5 mg Budesonide/Formoterol Fumarate (Symbicort 160/4.5mcg -) 2 puff IH BID [facility] Last Admin: 11/12/19 09:54 Dose: 2 puff Calcium Carbonate (Calcium Carbonate -) 650 mg PO DAILY PRN PRN Reason: INDIGESTION Carbidopa/Levodopa (Sinemet 25/100 -) 1 each PO TID [facility] Last Admin: 11/12/19 06:15 Dose: 1 each Clonazepam (Klonopin -) 0.5 mg PO MoWeFr@0700 [facility] Last Admin: 11/12/19 06:15 Dose: 0.5 mg Clonidine (Catapres -) 0.1 mg PO BID [facility] Last Admin: 11/12/19 09:48 Dose: 0.1 mg Entacapone (Comtan -) 200 mg PO TID [facility] Last Admin: 11/12/19 06:16 Dose: 200 mg Fentanyl (Sublimaze Injection -) 50 mcg IVPUSH [id number] PRN PRN Reason: PAIN-PACU ORDER X 4 DOSES ONLY Hydralazine HCl (Apresoline -) 25 mg PO TID [facility] Last Admin: 11/12/19 06:14 Dose: 25 mg Sodium Chloride (Normal Saline -) 250 mls @ 3,000 mls/hr IV PRN PRN PRN Reason: Hypotension during Dialysis Stop: 11/12/19 16:59 Sodium Chloride (Normal Saline -) 250 mls @ 3,000 mls/hr IV PRN PRN PRN Reason: Hypotension during Dialysis Stop: 11/13/19 12:23 Levetiracetam (Keppra -) 250 mg PO BID [facility] Last Admin: 11/12/19 09:50 Dose: 250 mg Mirtazapine (Remeron -) 15 mg PO [facility] Last Admin: 11/11/19 22:29 Dose: 15 mg Multivit/Ca Carb/B Cmplx/FA/Prenat (Nephro-Denny -) 1 tablet PO DAILY [facility] Last Admin: 11/12/19 09:50 Dose: 1 tablet Nystatin (Mycostatin Cream -) 1 applic TP BID [facility] Last Admin: 11/12/19 09:50 Dose: 1 applic Phenytoin Sodium (Dilantin Chewable Tablet -) 50 mg PO [facility] Last Admin: 11/11/19 22:29 Dose: 50 mg Phenytoin Sodium (Dilantin -) 200 mg PO DAILY [facility] Last Admin: 11/12/19 09:47 Dose: 200 mg Phenytoin Sodium (Dilantin -) 200 mg PO [facility] Last Admin: 11/11/19 22:30 Dose: 200 mg Pregabalin (Lyrica -) 50 mg PO TID [facility] Last Admin: 11/12/19 06:15 Dose: 50 mg Rivaroxaban (Xarelto) 20 mg PO DAILY@1800 [facility] Last Admin: 11/11/19 18:19 Dose: 20 mg Senna (Senna -) 1 tab PO [facility] Last Admin: 11/11/19 22:34 Dose: 1 tab Sevelamer Carbonate (Renvela -) 2,400 mg PO TIDCM [facility] Last Admin: 11/12/19 12:15 Dose: Not Given - Objective Vital Signs: Vital Signs Temperature 98.1 F 11/12/19 09:00 Pulse Rate 81 11/12/19 14:30 Respiratory Rate 18 11/12/19 14:30 Blood Pressure 102/55 L 11/12/19 14:30 O2 Sat by Pulse Oximetry (%) 98 11/12/19 09:00 Constitutional: Yes: Calm Eyes: Yes: Conjunctiva Clear HENT: Yes: Atraumatic Neck: Yes: Other (trache) Cardiovascular: Yes: S1, S2 Respiratory: Yes: CTA Bilaterally Gastrointestinal: Yes: Soft Genitourinary: Yes: WNL Musculoskeletal: Yes: WNL Edema: No Integumentary: Yes: WNL Neurological: Yes: Oriented Psychiatric: Yes: Oriented Labs: CBC, BMP 11/12/19 12:30 11/12/19 12:30 INR, PTT INR 0.95 (0.83-1.09) 11/09/19 16:20 Problem List - Problems (1) AV fistula occlusion Code(s): T82.898A - OTH COMPLICATION OF VASCULAR PROSTH DEV/GRFT, INIT Qualifiers: Encounter type: initial encounter Qualified Code(s): T82.898A - Other specified complication of vascular prosthetic devices, implants and grafts, initial encounter (2) ESRD (end stage renal disease) on dialysis Code(s): N18.6 - END STAGE RENAL DISEASE; Z99.2 - DEPENDENCE ON RENAL DIALYSIS Assessment/Plan Current Medications Generic Name Dose Route Start Last Admin Trade Name Freq PRN Reason Stop Dose Admin Acetaminophen 650 mg 11/11/19 11:19 Tylenol - PO Q6H PRN PAIN LEVEL 6-10 Albuterol Sulfate 1 amp 11/11/19 12:00 11/12/19 11:25 Ventolin 0.083% Nebulizer Soln - NEB 1 amp RQID TREVA Administration Amlodipine Besylate 10 mg 11/12/19 10:00 11/12/19 09:50 Norvasc - PO 10 mg DAILY TREVA Administration Benztropine Mesylate 0.5 mg 11/12/19 10:00 11/12/19 09:51 Cogentin - PO 0.5 mg DAILY TREVA Administration Budesonide/Formoterol Fumarate 2 puff 11/11/19 22:00 11/12/19 09:54 Symbicort 160/4.5mcg - IH 2 puff BID TREVA Administration Calcium Carbonate 650 mg 11/11/19 11:19 Calcium Carbonate - PO DAILY PRN INDIGESTION Carbidopa/Levodopa 1 each 11/11/19 14:00 11/12/19 06:15 Sinemet 25/100 - PO 1 each TID TREVA Administration Clonazepam 0.5 mg 11/12/19 07:00 11/12/19 06:15 Klonopin - PO 0.5 mg MoWeFr@0700 TRE[facility] Administration Clonidine 0.1 mg 11/11/19 22:00 11/12/19 09:48 Catapres - PO 0.1 mg BID TREVA Administration Entacapone 200 mg 11/11/19 14:00 11/12/19 06:16 Comtan - PO 200 mg TID TREVA Administration Fentanyl 50 mcg 11/11/19 11:19 Sublimaze Injection - IVPUSH [id number] PRN PAIN-PACU ORDER X 4 DOSES ONLY Hydralazine HCl 25 mg 11/11/19 14:00 11/12/19 06:14 Apresoline - PO 25 mg TID TREVA Administration Sodium Chloride 250 mls @ 3,000 mls/hr 11/11/19 17:00 Normal Saline - IV 11/12/19 16:59 PRN PRN Hypotension during Dialysis Sodium Chloride 250 mls @ 3,000 mls/hr 11/12/19 12:24 Normal Saline - IV 11/13/19 12:23 PRN PRN Hypotension during Dialysis Levetiracetam 250 mg 11/11/19 22:00 11/12/19 09:50 Keppra - PO 250 mg BID TREVA Administration Mirtazapine 15 mg 11/11/19 22:00 11/11/19 22:29 Remeron - PO 15 mg HS TREVA Administration Multivit/Ca Carb/B Cmplx/FA/Prenat 1 tablet 11/12/19 10:00 11/12/19 09:50 Nephro-Denny - PO 1 tablet DAILY TREVA Administration Nystatin 1 applic 11/11/19 22:00 11/12/19 09:50 Mycostatin Cream - TP 1 applic BID TREVA Administration Phenytoin Sodium 50 mg 11/11/19 22:00 11/11/19 22:29 Dilantin Chewable Tablet - PO 50 mg HS TREVA Administration Phenytoin Sodium 200 mg 11/12/19 10:00 11/12/19 09:47 Dilantin - PO 200 mg DAILY TREVA Administration Phenytoin Sodium 200 mg 11/11/19 22:00 11/11/19 22:30 Dilantin - PO 200 mg HS TREVA Administration Pregabalin 50 mg 11/11/19 14:00 11/12/19 06:15 Lyrica - PO 50 mg TID TREVA Administration Rivaroxaban 20 mg 11/11/19 18:00 11/11/19 18:19 Xarelto PO 20 mg DAILY@1800 [facility] Administration Senna 1 tab 11/11/19 22:00 11/11/19 22:34 Senna - PO 1 tab HS TREVA Administration Sevelamer Carbonate 2,400 mg 11/11/19 12:00 11/12/19 12:15 Renvela - PO Not Given TIDCM TREVA Impression 1. ESRD 2. occluded graft 3. epilepsy 4. chronic resp failure on trache 5. HTN 6. anemia Plan - HD today - pt has permacath - give unit of prbc - cont epogen - HD schedule MWF - has HD set up as outpt - HD AVF, 3 hrs, 450 abf, regular dialyzer, 2k standard bath, aranesp 40, venofer 50 - pt has a heparin allergy
[2019-11-12 15:43] VITALS: BP 131/62; PULSE 73
[2019-11-12] MEDS ORDERED: PT OWN MED DRAWER 7, Y5N ONE (15:50)
[2019-11-12] MEDS: RIVAROXABAN 20 MG TABLET PO SCH (17:41)
--- NOTE | 2019-11-28 18:09 | OP ---
DATE OF OPERATION: 11/11/2019 PREOPERATIVE DIAGNOSIS: End-stage renal disease. POSTOPERATIVE DIAGNOSIS: End-stage renal disease. PROCEDURE PERFORMED: Insertion of PermCath. SURGEON: Murali Thorpe DO ANESTHESIA: Fractional. BLOOD LOSS: 10 mL. INDICATIONS: Patient is a 59-year-old female who came in with a left AV graft that was clotted. We performed suction thrombectomy and the graft did not stay open and she now needs temporary dialysis catheter placement in the form of a PermCath. DESCRIPTION OF PROCEDURE: The patient was consented for the procedure, understanding all risks, benefits and alternatives. She was then brought to the operating room. Once in the operating room, she was laid on the operating table in the supine manner. The area of the right neck and chest were prepped and draped in a sterile surgical manner. We then went ahead and under ultrasound guidance visualized the right internal jugular vein, and 10 mL of lidocaine 1% was injected there. We then took our Micropuncture needle and punctured the right internal jugular vein. A Micropuncture wire was inserted and a micropuncture sheath was inserted under fluoroscopy. A 0.035 floppy guidewire was inserted under fluoroscopy. We then injected 10 mL of lidocaine 1% above and below the clavicle. We then took an 11 blade and made a 1-cm incision at the puncture site. We then took a 15 blade and made a 1-cm incision below the clavicle. We then tunneled the PermCath up to the puncture site. We then placed our break-away sheath over the guidewire into the vein under fluoroscopy. The cannula and guidewire were removed. The catheter was placed inside the sheath. The sheath was broken away as the catheter was placed inside the vein. The neck of the catheter was nice and smooth. The tip of the catheter was located outside the right atrium. We then francisca back on each port of the catheter, and there was good flow. Heparinized saline was injected, and 2000 units of IV heparin was injected into each port. We took 4-0 Biosyn and 2 simple sutures were placed at the puncture site. 3-0 nylon was on the catheter to attach it to the skin. Biopatch, Steri-Strips, 4 x 4s and Tegaderm were placed. The patient tolerated the procedure with no complications. The patient was transferred to PACU in stable condition. MURALI THORPE DO F[employer] INSPECTOR/[id number]
--- NOTE | 2019-11-29 08:38 | OP ---
DATE OF OPERATION: 11/10/2019 PREOPERATIVE DIAGNOSIS: Clotted left arteriovenous graft. POSTOPERATIVE DIAGNOSIS: Clotted left arteriovenous graft. PROCEDURE PERFORMED: Venogram, suction thrombectomy, venoplasty of left arteriovenous graft. SURGEON: Murali Thorpe DO ANESTHESIA: Yasmine Zavala. BLOOD LOSS: mL. INDICATIONS: Patient is a 59-year-old female who comes [facility] the shelter with a clotted left AV graft. She came into the ER and was admitted to the hospital. DESCRIPTION OF PROCEDURE: Patient was consented for the procedure, understanding all risks, benefits and alternatives, and was then taken to the operating room. Once in the operating room, she was laid on the operating table in the supine manner. The area of the left arm was prepped and draped in a sterile surgical manner. We then injected 10 mL of lidocaine 1% over the proximal AV graft about the anastomosis. We used a micropuncture needle and punctured the AV graft. Micropuncture wire was inserted and micropuncture sheath was inserted and a short 6-Sinhala sheath was inserted. We then shot our venogram, showing that the graft was clotted and there was severe stenosis across the venous anastomosis. We placed a 0.035 floppy guidewire through the graft and navigated through the venous anastomosis and placed it in the outflow vein. We then used a suction thrombectomy AVX catheter and performed suction thrombectomy of the AV graft and the outflow venous veins. We then administered 5000 units of IV heparin to the patient. We then went ahead and used a 9 x 8 Durata balloon and performed venoplasty of the outflow veins and the venous anastomosis and the graft. At this point we went ahead and there. We then went ahead and took our micropuncture needle and punctured the AV graft. Micropuncture wire was inserted and a short 6-Sinhala sheath was inserted the arterial anastomosis. We placed a 0.035 floppy guidewire and we were able to place it across the anastomosis. We then used suction thrombectomy catheter and performed suction thrombectomy of the proximal AV graft. We then went ahead and used a 6 x 6 Durata balloon and performed venoplasty of the proximal AV graft. There was good flow in our AV graft now, with a good thrill. Completion venogram showed that the graft was now patent. At this point we used a 4-0 Biosyn stitch and a [id number] stitch was placed around the sheaths and the sheaths were pulled. The area was wet and dried, and Dermabond was placed. The patient tolerated the procedure with no complications. The patient was transferred to the PACU in stable condition, where the patient will then be transferred to hemodialysis. MURALI THORPE DO NP/[id number]
== END 2019-11-12 20:12 | DRG 252 ==
LOC: JER 15:13 → JERBED 16:01 → J5S 20:29
PROVIDERS: ADMIT Internal Medicine; ATTEND Internal Medicine
PROC: 03WY3JZ Revision of Synthetic Substitute in Upper Artery, Percutaneous Approach (ICD-10-PCS; 2019-11-10)
PROC: B50NYZZ Plain Radiography of Left Upper Extremity Veins using Other Contrast (ICD-10-PCS; 2019-11-10)
PROC: 3E033GC Introduction of Other Therapeutic Substance into Peripheral Vein, Percutaneous Approach (ICD-10-PCS; 2019-11-10)
PROC: 05CY3ZZ Extirpation of Matter from Upper Vein, Percutaneous Approach (ICD-10-PCS; principal; 2019-11-10 09:32)
PROC: 5A1D70Z Performance of Urinary Filtration, Intermittent, Less than 6 Hours Per Day (ICD-10-PCS; 2019-11-11)
PROC: 05HM33Z Insertion of Infusion Device into Right Internal Jugular Vein, Percutaneous Approach (ICD-10-PCS; 2019-11-11)
PROC: 5A1D70Z Performance of Urinary Filtration, Intermittent, Less than 6 Hours Per Day (ICD-10-PCS; 2019-11-12)
DX: T82.898A Other specified complication of vascular prosthetic devices, implants and grafts, initial encounter (principal); N18.6 End stage renal disease; J96.10 Chronic respiratory failure, unspecified whether with hypoxia or hypercapnia; I12.0 Hypertensive chronic kidney disease with stage 5 chronic kidney disease or end stage renal disease; Y83.8 Other surgical procedures as the cause of abnormal reaction of the patient, or of later complication, without mention of misadventure at the time of the procedure; Z93.0 Tracheostomy status; G40.909 Epilepsy, unspecified, not intractable, without status epilepticus; D64.9 Anemia, unspecified; Z99.2 Dependence on renal dialysis; R47.02 Dysphasia; N25.0 Renal osteodystrophy; I25.2 Old myocardial infarction; F41.9 Anxiety disorder, unspecified; Z93.1 Gastrostomy status; E78.5 Hyperlipidemia, unspecified; I25.10 Atherosclerotic heart disease of native coronary artery without angina pectoris
CPT/HCPCS: 36415; 36430; 71045-TC-FY; 76000-TC-FY; 80048; 80053; 80185; 83735; 85025; 85027; 85610; 85730; 86803; 86850; 86900; 86901; 86922; 87340; 93005; 93010; 93971; 94640; 94760; 99283-25; J0735; J0885; P9058

== ENCOUNTER 2019-11-20 12:54 | Inpatient (IN) | payer OTHER ==
[2019-11-20 13:22] VITALS: BMI 27.4
--- NOTE | 2019-11-20 14:41 | PDOC ---
History of Present Illness - General Chief Complaint: Dialysis Shunt Problem Stated Complaint: TUBE REPLACEMENT Time Seen by Provider: 11/20/19 14:17 History Source: Patient Exam Limitations: No Limitations - History of Present Illness Initial Comments: 11/20/19 14:40 Winsome Mi is a 59F with PMH PR c/b ICU, chronic respiratory failure s/p trach, asthma, HTN, epilepsy, and ESRD on MWF HD presenting with clotted LUE dialysis fistula and clotted L subclavicular Portacath, sent from [facility] because unable to dialyze. Patient reports she had an PR last year, was admitted to ICU for 5 weeks, had trach/PEG placed, PEG removed, still has trach, discharged to [facility] for rehab. Had LUE dialysis fistula placed, but this clotted over and came in to [facility] 11/09/19. Had L SC Portacath placed by Dr. Paz on 11/11/19. Tried to dialyze yesterday but unable to finish session because of Portacath malfunction , sent for further placement of definitive line for HD. Patient says she had R femoral Shiley placed once, said it was very painful. Dr. العراقي covered dialysis last admission. Today says she is asymptomatic, denies chest pain, SOB, palpitations, abdominal pain, back pain, vision changes, dizziness, MALAGON. Unable to walk well 2/2 weakness. Has chronic intention tremor, patient says she was evaluated for this but does not have any diagnosis, was started on Parkinson's medications which worsened tremor. Past History - Past Medical History Allergies/Adverse Reactions: Allergies Allergy/AdvReac Type Severity Reaction Status Date / Time SHAHBAZ Inhibitors Allergy Verified 11/20/19 13:21 codeine Allergy Verified 11/20/19 13:21 diphenhydramine Allergy Verified 11/20/19 13:21 [From Benadryl] heparin Allergy Verified 11/20/19 13:21 lisinopril Allergy Verified 11/20/19 13:21 Home Medications: Ambulatory Orders Amlodipine Besylate [Norvasc -] 10 mg PO DAILY tablet 06/24/18 levETIRAcetam [Keppra -] 250 mg PO BID tablet 06/24/18 Acetaminophen 650 mg PO PRN PRN 07/05/18 Mirtazapine [Remeron -] 15 mg PO HS 08/07/18 Albuterol 0.083% Nebulizer Liza [Ventolin 0.083% Nebulizer Soln -] 2.5 mg NEB RQID 08/08/18 cloNIDine HCL [Catapres -] 0.1 mg PO BID 08/08/18 clonazePAM [Klonopin -] 0.5 mg PO DAILY 08/08/18 Acetylcysteine Po/INH 20% [Mucomyst 20 Oral / INH Use Only*] 800 mg NEB RQID vial 09/25/18 Carbidopa/Levodopa 25/100 [Sinemet 25/100 -] 1 each PO TID tablet 09/25/18 Benztropine Mesylate [Cogentin -] 1 tab PO DAILY 10/22/19 Dextromethorphan HBr/Quinidine [Nuedexta 20-10 mg Capsule] 1 tab PO BID Entacapone 1 tab PO TID 10/22/19 Nystatin Cream [Mycostatin Cream -] 1 applic TD BID 10/22/19 Phenytoin 1 tab PO HS 10/22/19 Pregabalin 1 cap PO TID 10/22/19 Rivaroxaban [Xarelto] 20 mg PO DAILY 10/22/19 hydrALAZINE HCL [Apresoline -] 25 mg PO TID 10/22/19 Budesonide/Formeterol Fumarate [SYMBICORT 160/4.5mcg -] 2 puff IH BID 11/09/19 Calcium Carbonate [Antacid Calcium] 215 mg PO DAILY PRN 11/09/19 Phenytoin Na Extended [Dilantin -] 200 mg PO HS 11/09/19 Sennosides [Senna] 8.6 mg PO HS 11/09/19 Vitamin B Comp W-C [Nephro-Denny -] 0.8 mg PO DAILY 11/09/19 Sevelamer Carbonate [Renvela -] 2,400 mg PO TIDCM tab 11/12/19 Anemia: Yes (refractory anemia) Asthma: Yes Cardiac Disorders: Yes (PR(2017) with subsequent coma [id number]) COPD: Yes CHF: Yes GI Disorders: Yes (peg tube) Disorders: Yes (Htn chronic kid dx,renal osteodystrophy) HTN: Yes Psychiatric Problems: Yes (anxiety) Seizures: Yes (epilepsy,essential tremor) - Surgical History Abdominal Surgery: Yes (PEG with reversal) GI Surgery: Yes (peg tube) - Psycho Social/Smoking Cessation Hx Smoking History: Former smoker Have you smoked in the past 12 months: No Number of Cigarettes Smoked Daily: 40 If you are a former smoker, when did you quit?: 2017 Information on smoking cessation initiated: No 'Breaking Loose' booklet given: 06/23/18 Hx Alcohol Use: No Drug/Substance Use Hx: Yes (past) Hx Substance Use Treatment: No Review of Systems - Review of Systems Able to Perform ROS?: Yes Constitutional: No: Chills, Fever, Weakness HEENTM: No: Eye Pain, Recent change in vision, Throat Pain, Difficulty Swallowing Respiratory: No: Cough, Shortness of Breath, Stridor, Wheezing Cardiac (ROS): No: Chest Pain, Edema, Irregular Heart Rate, Lightheadedness, Palpitations, Syncope, Chest Tightness ABD/GI: No: Constipated, Diarrhea, Nausea, Poor Appetite, Poor Fluid Intake, Vomiting : No: Symptoms Reported Musculoskeletal: No: Symptoms Reported Integumentary: No: Symptoms Reported Neurological: No: Headache, Numbness, Paresthesia, Weakness Endocrine: No: Symptoms Reported Hematologic/Lymphatic: No: Symptoms Reported All Other Systems: Reviewed and Negative *Physical Exam - Vital Signs Last Vital Signs Temp Pulse Resp BP Pulse Ox 98.1 F 80 18 127/53 L 98 11/20/19 13:17 11/20/19 13:17 11/20/19 13:17 11/20/19 13:17 11/20/19 13:17 - Physical Exam General Appearance: Yes: Nourished, Appropriately Dressed, Obese, Other ( resting comfortably in bed, in NAD, has intention tremor, breathing without issue on trach mask on 2L oxygen). No: Apparent Distress HEENT: positive: EOMI, FIDEL, Normal ENT Inspection, Normal Voice, Symmetrical, Pharynx Normal, Hearing Grossly Normal. negative: Scleral Icterus (R), Scleral Icterus (L), Pharyngeal Erythema, Tonsillar Exudate, Tonsillar Erythema Neck: positive: Trachea midline, Normal Thyroid, Supple. negative: Tender, Rigid, Lymphadenopathy (R), Lymphadenopathy (L) Respiratory/Chest: positive: Lungs Clear, Normal Breath Sounds. negative: Chest Tender, Respiratory Distress, Accessory Muscle Use, Crackles, Rales, Rhonchi, Stridor, Wheezing Cardiovascular: positive: Regular Rhythm, Regular Rate. negative: Murmur Gastrointestinal/Abdominal: positive: Normal Bowel Sounds, Soft, Protuberent, Other (well-healed former PEG indentation to left abdomen). negative: Tender, Guarding, Rebound Musculoskeletal: positive: Normal Inspection. negative: CVA Tenderness, Decreased Range of Motion, Muscle Spasm Extremity: positive: Normal Capillary Refill, Normal Inspection, Normal Range of Motion, Pelvis Stable, Other (AV graft to left upper arm, no bruit, L hand neurovascular intact with 2+ radial pulse). negative: Tender, Coldness, Pedal Edema, Swelling Integumentary: positive: Normal Color, Dry, Warm Neurologic: positive: Fully Oriented, Alert, Normal Mood/Affect, Normal Response ED Treatment Course - LABORATORY CBC & Chemistry Diagram: 11/21/19 01:50 11/21/19 05:49 Medical Decision Making - Medical Decision Making 11/20/19 18:24 Patient sent from [facility] for clotted dialysis Portacath after clotted LUE AV graft, unable to get HD. Unable to finish HD yesterday, here for access. Last time in [facility] saw Dr. العراقي for HD and Dr. Paz for Permacath placement. Patient asymptomatic at this time, will get pre-op labs, evaluate for emergent dialysis need, and then consult Dr. Paz for further vascular access. - CMP for eval K, Cr - CBC for eval infection - TS/ECG/CXR for pre-op Called Dr. Paz service for consult. Dr. العراقي evaluated, if admitted and needing HD will HD tomorrow. ECG shows NSR with HR 72, QRS 88, QTc 444, no TWI or ischemic changes, no peaked T waves CXR shows enlarged heart, trach, central line, no pulmonary abnormalities. Labs notable for: - CBC WNL - Coags WNL - K 6.1, elevated - BUN 106 - Cr 7.8, at high end of normal range Started IV insulin, D50 and bicarbonate, re-check BMP ordered. Discussed case with ALBERT Youngblood, good for admit to tele with renal and vascular consult. Dr. العراقي called, would like femoral line placed for HD, says that last time she refused. Discussed with patient, refuses femoral line. Dr. العراقي would like 30mg Kayexelate to clear K for OR tomorrow, needs to have BM in 4-6 hours. Night ED team aware. Patient asymptomatically hyperkalemic, and no emergent need for HD at this time. Can be stably managed with insulin and IVF until further eval in the AM. Discharge - Discharge Information Problems reviewed: Yes Clinical Impression/Diagnosis: Hyperkalemia Clotted dialysis shunt Qualifiers: Encounter type: initial encounter Qualified Code(s): T82.868A - Thrombosis due to vascular prosthetic devices, implants and grafts, initial encounter Condition: Stable Disposition: HOME - Admission Yes - Follow up/Referral - Patient Discharge Instructions - Post Discharge Activity
--- NOTE | 2019-11-20 14:54 | EKG ---
Test Reason : Blood Pressure : / mmHG Vent. Rate : 072 BPM Atrial Rate : 072 BPM P-R Int : 182 ms QRS Dur : 088 ms QT Int : 406 ms P-R-T Axes : 056 057 060 degrees QTc Int : 444 ms NORMAL SINUS RHYTHM NORMAL ECG WHEN COMPARED WITH ECG OF 09-NOV-2019 18:02, NO SIGNIFICANT CHANGE WAS FOUND Confirmed by Jayme Zhong MD ([id number]) on 11/20/2019 2:53:53 PM Referred By: Confirmed By:Jayme Zhong MD
--- NOTE | 2019-11-20 16:18 | PDOC ---
Attending Attestation - Resident Resident Name: JanaejoeyOllie - ED Attending Attestation I have performed the following: I have examined & evaluated the patient, The case was reviewed & discussed with the resident, I agree w/resident's findings & plan, Exceptions are as noted - HPI HPI: 11/20/19 16:15 59y F hx of CAD, sp trach placmeent, ESRD (MWF dialysis, using portacath) presents as her portacath is clotted - pt had partial dialysis yesterday. pt has no complaints including cp, sob, oe, leg swelling, fever/chills. exam: GENERAL: The patient is awake, alert, and fully oriented, Nontoxic - in no acute distress. HEAD: Normocephalic, atraumatic. EYES: extraocular movements intact, sclera anicteric, conjunctiva clear. NECK: trach in place LUNGS: Breath sounds equal, clear to auscultation bilaterally. No wheezes, no rhonchi, no rales. HEART: Regular rate and rhythm, normal S1 and S2 without murmur, rub or gallop. CHEST: PortaCatheter in L chest ABDOMEN: Soft, nontender, No guarding, no rebound. No CVA tenderness EXTREMITIES: Normal range of motion, trace edema. NEUROLOGICAL: No facial assymetry, Normal speech, PSYCH: Normal mood, normal affect. SKIN: Warm, Dry, normal turgor, will obtina lab work anticipate admission for anagement of cath - Physicial Exam PE: 11/23/19 10:00 see above - Medical Decision Making 11/23/19 10:00 see above Heart Score/ECG Review - ECG Impressions Comment:: 11/20/19 16:41 Twelve-lead EKG was performed and reviewed by me. There is normal sinus rhythm with a normal rate. rate of [address] changes suggetive of acute ischemia
[2019-11-20 17:32] LABS: BASO % 0.7 % (0-2.0); EOS % 6.9 % (0-4.5); HEMATOCRIT 23.1 % (32.4-45.2); HEMOGLOBIN 7.8 GM/dL (10.7-15.3); LYMPH % 20.2 % (8-40); MCH 33.8 pg (25.7-33.7); MCHC 33.7 g/dl (32.0-36.0); MEAN CELL VOLUME 100.6 fl (80-96); MEAN PLT VOLUME 8.2 fl (7.5-11.1); MONO % 9.3 % (3.8-10.2); NEUT % 62.9 % (42.8-82.8); PLATELET COUNT 150 K/MM3 (134-434); RDW 15.2 % (11.6-15.6); WHITE BLOOD COUNT 5.4 K/mm3 (4.0-10.0)
[2019-11-20 17:48] LABS: INR 0.9 (0.83-1.09); PROTHROMBIN TIME (PATIENT) 10.6 SEC (9.7-13.0)
[2019-11-20 17:51] LABS: ACTIVATED PTT 18.7 SECONDS (25.2-36.5)
[2019-11-20 18:41] LABS: ALBUMIN 3.3 g/dl (3.4-5.0); BILIRUBIN,TOTAL 0.8 mg/dL (0.2-1); CALCIUM 8.3 mg/dL (8.5-10.1)
[2019-11-20 18:43] LABS: BLOOD UREA NITROGEN 106.4 mg/dL (7-18); CREATININE 7.8 mg/dL (0.55-1.3); POTASSIUM 6.1 mmol/L (3.5-5.1)
[2019-11-20] MEDS ORDERED: INSULIN REGULAR HUMAN 100 UNITS/ML *VIAL IVPUSH ONE (19:22)
[2019-11-20] MEDS ORDERED: DEXTROSE 50%-WATER - 25 GM/50 ML VIAL IVPUSH ONE (19:23)
[2019-11-20] MEDS ORDERED: SODIUM BICARBONATE 4.2% 5 MEQ/10 ML DISP.SYRIN IVPUSH ONE ×2 (19:23→19:29)
[2019-11-20] MEDS ORDERED: DEXTROSE 50%-WATER - 25 GM/50 ML VIAL ONE (19:29)
[2019-11-20] MEDS ORDERED: INSULIN REGULAR HUMAN 100 UNITS/ML *VIAL ONE (19:30)
--- NOTE | 2019-11-20 20:26 | CONSULT ---
Consult Consult Specialty:: Nephrology Reason for Consultation:: esrd - History of Present Illness Chief Complaint: clotted permacath History of Present Illness: Pt is a 59 year old female with pmhx of esrd who was sent in for a clotted permacath. Her permacath was placed on her last admission. She had a partial dialysis yesterday. She denies shortness of breath. She is refusing a femoral line for urgent HD. - History Source History Provided By: Patient - Past Medical History REPA[employer] FURN[employer]URE: Yes: Seizure Cardio/Vascular: Yes: CAD, HTN, Hyperlipdemia Renal/: Yes: Renal Failure, Hemodialysis - Past Surgical History Past Surgical History: Yes: AV Fistula/Graft - Alcohol/Substance Use Hx Alcohol Use: No History of Substance Use: reports: None - Smoking History Smoking history: Former smoker Have you smoked in the past 12 months: No Aproximately how many cigarettes per day: 40 If you are a former smoker, when did you quit?: 2017 - Social History ADL: Support Services History of Recent Travel: No Home Medications - Allergies Allergies/Adverse Reactions: Allergies Allergy/AdvReac Type Severity Reaction Status Date / Time SHAHBAZ Inhibitors Allergy Verified 11/20/19 13:21 codeine Allergy Verified 11/20/19 13:21 diphenhydramine Allergy Verified 11/20/19 13:21 [From Benadryl] heparin Allergy Verified 11/20/19 13:21 lisinopril Allergy Verified 11/20/19 13:21 - Home Medications Home Medications: Ambulatory Orders Amlodipine Besylate [Norvasc -] 10 mg PO DAILY tablet 06/24/18 levETIRAcetam [Keppra -] 250 mg PO BID tablet 06/24/18 Acetaminophen 650 mg PO PRN PRN 07/05/18 Mirtazapine [Remeron -] 15 mg PO HS 08/07/18 Albuterol 0.083% Nebulizer Liza [Ventolin 0.083% Nebulizer Soln -] 2.5 mg NEB RQID 08/08/18 cloNIDine HCL [Catapres -] 0.1 mg PO BID 08/08/18 clonazePAM [Klonopin -] 0.5 mg PO DAILY 08/08/18 Acetylcysteine Po/INH 20% [Mucomyst 20 Oral / INH Use Only*] 800 mg NEB RQID vial 09/25/18 Carbidopa/Levodopa 25/100 [Sinemet 25/100 -] 1 each PO TID tablet 09/25/18 Benztropine Mesylate [Cogentin -] 1 tab PO DAILY 10/22/19 Dextromethorphan HBr/Quinidine [Nuedexta 20-10 mg Capsule] 1 tab PO BID Entacapone 1 tab PO TID 10/22/19 Nystatin Cream [Mycostatin Cream -] 1 applic TD BID 10/22/19 Phenytoin 1 tab PO HS 10/22/19 Pregabalin 1 cap PO TID 10/22/19 Rivaroxaban [Xarelto] 20 mg PO DAILY 10/22/19 hydrALAZINE HCL [Apresoline -] 25 mg PO TID 10/22/19 Budesonide/Formeterol Fumarate [SYMBICORT 160/4.5mcg -] 2 puff IH BID 11/09/19 Calcium Carbonate [Antacid Calcium] 215 mg PO DAILY PRN 11/09/19 Phenytoin Na Extended [Dilantin -] 200 mg PO HS 11/09/19 Sennosides [Senna] 8.6 mg PO HS 11/09/19 Vitamin B Comp W-C [Nephro-Denny -] 0.8 mg PO DAILY 11/09/19 Sevelamer Carbonate [Renvela -] 2,400 mg PO TIDCM tab 11/12/19 Family Medical History Family History: Denies Review of Systems Unable to obtain ROS, reason: negative Physical Exam Vital Signs: Vital Signs Temperature 98.1 F 11/20/19 13:17 Pulse Rate 80 11/20/19 13:17 Respiratory Rate 18 11/20/19 13:17 Blood Pressure 127/53 L 11/20/19 13:17 O2 Sat by Pulse Oximetry (%) 98 11/20/19 19:04 Constitutional: Yes: Calm Eyes: Yes: Conjunctiva Clear HENT: Yes: Atraumatic Neck: Yes: Other (trache) Cardiovascular: Yes: S1, S2 Respiratory: Yes: Other (trache collar) Gastrointestinal: Yes: Soft Renal/: Yes: WNL Musculoskeletal: Yes: WNL Edema: No Neurological: Yes: Oriented Psychiatric: Yes: Oriented Labs: CBC, BMP 11/20/19 17:00 11/20/19 17:00 Imaging - Results Chest X-ray: Report Reviewed Problem List - Problems (1) Clotted dialysis shunt Code(s): T82.868A - THROMBOSIS DUE TO VASCULAR PROSTH DEV/GRFT, INIT Qualifiers: Encounter type: initial encounter Qualified Code(s): T82.868A - Thrombosis due to vascular prosthetic devices, implants and grafts, initial encounter (2) Hyperkalemia Code(s): E87.5 - HYPERKALEMIA (3) ESRD (end stage renal disease) on dialysis Code(s): N18.6 - END STAGE RENAL DISEASE; Z99.2 - DEPENDENCE ON RENAL DIALYSIS Assessment/Plan Impression 1. ESRD 2. occluded graft 3. epilepsy 4. chronic resp failure on trache 5. HTN 6. anemia 7. clotted permacath 8. hyperkalemia Plan - pr refusing shiley and urgent hd - will treat potassium medically, discussed with er - vascular eval - pt has heparin allergy - citrate bath on hd - HD AVF, 3 hrs, 450 abf, regular dialyzer, 2k standard bath, aranesp 40, venofer 50
[2019-11-20] MEDS ORDERED: SODIUM POLYSTYRENE SULFONATE 15 GM/60 ML BOTTLE PO ONE (20:28)
[2019-11-20] MEDS ORDERED: CALCIUM GLUCONATE 10% - 1,000 MG/10 ML VIAL IVPB ONE (20:28)
--- NOTE | 2019-11-20 20:34 | HP ---
Admitting History and Physical - Primary Care Physician PCP: Marlon Vazquez ([facility]) - Admission Chief Complaint: Clotted Permacath, Clotted AV Graft History of Present Illness: This is a 59 y/o woman from [facility] with a PMHx of CAD, Chronic Respiratory Failure s/p trach placement, ESRD (HD, M,W,F using portacath). Who presents to the ED because her portacath is clotted - patient had partial dialysis yesterday. Patient has no complaints including cp, sob, quezada, leg swelling, fever /chills. 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 Cardiovascular: Yes: CAD, HTN, Hyperlipdemia Renal/: Yes: Renal Failure, Hemodialysis - Past Surgical History Past Surgical History: Yes: AV Fistula/Graft Additional Past Surgical History: Trach PEG, PEG removal Permacath - Smoking History Smoking history: Former smoker Have you smoked in the past 12 months: No Aproximately how many cigarettes per day: 40 If you are a former smoker, when did you quit?: 2017 - Alcohol/Substance Use Hx Alcohol Use: No History of Substance Use: reports: None - Social History Usual Living Arrangement: Yes: [facility] ADL: Support Services History of Recent Travel: No Home Medications - Allergies Allergies/Adverse Reactions: Allergies Allergy/AdvReac Type Severity Reaction Status Date / Time SHAHBAZ Inhibitors Allergy Verified 11/20/19 13:21 codeine Allergy Verified 11/20/19 13:21 diphenhydramine Allergy Verified 11/20/19 13:21 [From Benadryl] heparin Allergy Verified 11/20/19 13:21 lisinopril Allergy Verified 11/20/19 13:21 - Home Medications Home Medications: Ambulatory Orders Amlodipine Besylate [Norvasc -] 10 mg PO DAILY tablet 06/24/18 levETIRAcetam [Keppra -] 250 mg PO BID tablet 06/24/18 Acetaminophen 650 mg PO PRN PRN 07/05/18 Mirtazapine [Remeron -] 15 mg PO HS 08/07/18 Albuterol 0.083% Nebulizer Liza [Ventolin 0.083% Nebulizer Soln -] 2.5 mg NEB RQID 08/08/18 cloNIDine HCL [Catapres -] 0.1 mg PO BID 08/08/18 clonazePAM [Klonopin -] 0.5 mg PO DAILY 08/08/18 Acetylcysteine Po/INH 20% [Mucomyst 20 Oral / INH Use Only*] 800 mg NEB RQID vial 09/25/18 Carbidopa/Levodopa 25/100 [Sinemet 25/100 -] 1 each PO TID tablet 09/25/18 Benztropine Mesylate [Cogentin -] 1 tab PO DAILY 10/22/19 Dextromethorphan HBr/Quinidine [Nuedexta 20-10 mg Capsule] 1 tab PO BID Entacapone 1 tab PO TID 10/22/19 Nystatin Cream [Mycostatin Cream -] 1 applic TD BID 10/22/19 Phenytoin 1 tab PO HS 10/22/19 Pregabalin 1 cap PO TID 10/22/19 Rivaroxaban [Xarelto] 20 mg PO DAILY 10/22/19 hydrALAZINE HCL [Apresoline -] 25 mg PO TID 10/22/19 Budesonide/Formeterol Fumarate [SYMBICORT 160/4.5mcg -] 2 puff IH BID 11/09/19 Calcium Carbonate [Antacid Calcium] 215 mg PO DAILY PRN 11/09/19 Phenytoin Na Extended [Dilantin -] 200 mg PO HS 11/09/19 Sennosides [Senna] 8.6 mg PO HS 11/09/19 Vitamin B Comp W-C [Nephro-Denny -] 0.8 mg PO DAILY 11/09/19 Sevelamer Carbonate [Renvela -] 2,400 mg PO TIDCM tab 11/12/19 Family Medical History Family History: Unable to Obtain Review of Systems - Review of Systems Constitutional: reports: No Symptoms Eyes: reports: No Symptoms HENT: reports: No Symptoms Neck: reports: No Symptoms Cardiovascular: reports: No Symptoms Respiratory: reports: No Symptoms Gastrointestinal: reports: No Symptoms Genitourinary: reports: No Symptoms Breasts: reports: No Symptoms Reported Musculoskeletal: reports: No Symptoms Integumentary: reports: No Symptoms Neurological: reports: No Symptoms Endocrine: reports: No Symptoms Hematology/Lymphatic: reports: No Symptoms Psychiatric: reports: No Symptoms Physical Examination Vital Signs: Vital Signs Temperature 98.1 F 02/04/20 13:17 Pulse Rate 80 02/04/20 13:17 Respiratory Rate 18 11/20/19 13:17 Blood Pressure 127/53 L 11/20/19 13:17 O2 Sat by Pulse Oximetry (%) 98 11/20/19 19:04 Constitutional: Yes: No Distress, Calm Eyes: Yes: Conjunctiva Clear, PERRL HENT: Yes: WNL, Atraumatic, Normocephalic Neck: Yes: Other (trach with collar) Cardiovascular: Yes: Regular Rate and Rhythm, S1, S2, Other (Permacath to LCW) Respiratory: Yes: Diminished, Rhonchi, Other (trach with collar) Gastrointestinal: Yes: WNL, Normal Bowel Sounds, Soft Breast(s): Yes: WNL Musculoskeletal: Yes: WNL Extremities: Yes: Other (AV-Fistula to LUE- no bruit/thrill contractures b/l LE) Edema: No Peripheral Pulses WNL: Yes Neurological: Yes: Alert Psychiatric: Yes: Alert Labs: CBC, BMP 11/20/19 17:00 11/20/19 17:00 Imaging - Results Chest X-ray: Report Reviewed, Image Reviewed EKG: Image Reviewed Problem List - Problems (1) Hyperkalemia Assessment/Plan: Likely secondary to ESRD Patient received partial dialysis due to non-working Permacath, dysfunctional AV -Fistula Hyperkalemia Protocol given in ED Repeat BMP-pending EKG reviewed no peaked T waves Appreciate Nephrology consult Appreciate Cardiology consult Continue cardiac monitoring Code(s): E87.5 - HYPERKALEMIA (2) AV fistula occlusion Assessment/Plan: Appreciate Nephrology consult Appreciate Vascular consult Monitor CBC, BMP Monitor vitals Neurovascular checks Code(s): T82.898A - OTH COMPLICATION OF VASCULAR PROSTH DEV/GRFT, INIT Qualifiers: Encounter type: initial encounter Qualified Code(s): T82.898A - Other specified complication of vascular prosthetic devices, implants and grafts, initial encounter (3) ESRD (end stage renal disease) on dialysis Assessment/Plan: HD- M,W,F Appreciate Nephrology consult- HD Management Monitor CBC, BMP Monitor vitals Code(s): N18.6 - END STAGE RENAL DISEASE; Z99.2 - DEPENDENCE ON RENAL DIALYSIS (4) Tracheostomy dependent Assessment/Plan: Continue O2 Monitor Spo2 Aspiration Precautions ] Code(s): Z93.0 - TRACHEOSTOMY STATUS (5) Anemia Assessment/Plan: Likely due to ESRD Hgb 7.8 Will transfuse if HGB < 7.0 Monitor CBC Code(s): D64.9 - ANEMIA, UNSPECIFIED (6) HTN (hypertension) Assessment/Plan: stable Monitor BP Continue home med Monitor BMP Code(s): I10 - ESSENTIAL (PRIMARY) HYPERTENSION (7) Seizure disorder Assessment/Plan: stable No active seizure activity Continue home meds Seizure Precautions Code(s): G40.909 - EPILEPSY, UNSP, NOT INTRACTABLE, WITHOUT STATUS EPILEPTICUS Assessment/Plan This is a 59 y/o woman from [facility] with a PMHx of CAD, Chronic Respiratory Failure s/p trach placement, ESRD (HD, M,W,F using portacath). Admitted to Telemetry for Hyperkalemia, ESRD for further evaluation of their emergent condition. Plan: See Problem List FEN Fluid Restriction Replete lytes prn Renal, Low Na Diet DVT ppx OOB SCDs patient has allergy to Heparin Dispo: Requires Inpatient Care Visit type - Emergency Visit Emergency Visit: Yes ED Registration Date: 11/20/19 Care time: The patient presented to the Emergency Department on the above date and was hospitalized for further evaluation of their emergent condition. - New Patient This patient is new to me today: Yes Date on this admission: 11/20/19 - Critical Care Critical Care patient: No
[2019-11-21] MEDS ORDERED: SODIUM POLYSTYRENE SULFONATE 15 GM/60 ML BOTTLE ONE (01:20)
[2019-11-21] MEDS ORDERED: CALCIUM GLUCONATE 10% - 1,000 MG/10 ML VIAL ONE (01:20)
[2019-11-21] MEDS ORDERED: CALCIUM CARBONATE PO PRN (01:35)
[2019-11-21 02:10] LABS: BASO % 0.3 % (0-2.0); HEMATOCRIT 24.4 % (32.4-45.2); HEMOGLOBIN 8.1 GM/dL (10.7-15.3); LYMPH % 24.2 % (8-40); MCH 33.9 pg (25.7-33.7); MCHC 33.4 g/dl (32.0-36.0); MEAN CELL VOLUME 101.3 fl (80-96); MEAN PLT VOLUME 7.8 fl (7.5-11.1); MONO % 8.8 % (3.8-10.2); NEUT % 59.7 % (42.8-82.8); PLATELET COUNT 144 K/MM3 (134-434); RBC 2.41 M/mm3 (3.60-5.2); RDW 15.6 % (11.6-15.6); WHITE BLOOD COUNT 5.6 K/mm3 (4.0-10.0)
[2019-11-21 02:38] LABS: CALCIUM 9.1 mg/dL (8.5-10.1); POTASSIUM 5.1 mmol/L (3.5-5.1)
[2019-11-21 02:53] LABS: BLOOD UREA NITROGEN 106.2 mg/dL (7-18); CREATININE 8.3 mg/dL (0.55-1.3)
[2019-11-21] MEDS ORDERED: PREGABALIN 50 MG CAPSULE ONE (05:04)
[2019-11-21] MEDS ORDERED: hydrALAZINE HCL 25 MG TABLET (FP) ONE (05:04)
[2019-11-21] MEDS ORDERED: CARBIDOPA/LEVODOPA 25/100 TABLET (FP) ONE (05:04)
[2019-11-21] MEDS: PREGABALIN 50 MG CAPSULE PO SCH ×2 (06:01→21:03)
[2019-11-21] MEDS: CARBIDOPA/LEVODOPA 25/100 TABLET (FP) PO SCH ×3 (06:01→21:03)
[2019-11-21] MEDS: hydrALAZINE HCL 25 MG TABLET (FP) PO SCH ×3 (06:01→21:04)
[2019-11-21] MEDS: ENTACAPONE 200 MG TABLET PO SCH ×3 (06:01→21:05)
[2019-11-21 07:22] LABS: CALCIUM 8.5 mg/dL (8.5-10.1); MAGNESIUM 2.8 mg/dL (1.8-2.4); PHOSPHOROUS 7.1 mg/dL (2.5-4.9); POTASSIUM 5.1 mmol/L (3.5-5.1)
[2019-11-21 07:38] LABS: BLOOD UREA NITROGEN 111.8 mg/dL (7-18); CREATININE 8.3 mg/dL (0.55-1.3)
[2019-11-21] MEDS: SEVELAMER CARBONATE 800 MG TAB (FP) PO SCH ×3 (09:22→17:31)
--- NOTE | 2019-11-21 10:03 | PN ---
Progress Note (short form) - Note Progress Note: pt examined in ER No chest pain or SOB she is frustrated that she in ER for so long last HD on Tuesday Vital Signs - 24 hr 11/20/19 11/20/19 11/20/19 13:17 19:04 19:30 Temperature 98.1 F Pulse Rate 80 Pulse Rate [ 77 Left] Respiratory 18 18 Rate Blood Pressure 127/53 L Blood Pressure 146/65 [Left Arm] O2 Sat by Pulse 98 98 100 Oximetry (%) 11/21/19 11/21/19 11/21/19 00:17 02:33 06:00 Temperature 98.6 F 97.9 F Pulse Rate Pulse Rate [ 80 99 H 81 Left] Respiratory 18 18 17 Rate Blood Pressure Blood Pressure 137/46 L 142/93 [Left Arm] O2 Sat by Pulse 100 100 95 Oximetry (%) 11/21/19 06:35 Temperature Pulse Rate Pulse Rate [ 100 H Left] Respiratory 18 Rate Blood Pressure Blood Pressure [Left Arm] O2 Sat by Pulse 100 Oximetry (%) Current Medications Generic Name Dose Route Start Last Admin Trade Name Freq PRN Reason Stop Dose Admin Acetylcysteine 800 mg 11/21/19 12:00 Mucomyst 20 Oral / Inh Use Only* NEB RQID TREVA Albuterol Sulfate 1 amp 11/21/19 08:00 Ventolin 0.083% Nebulizer Soln - NEB RQID TREVA Amlodipine Besylate 10 mg 11/21/19 10:00 Norvasc - PO DAILY TREVA Benztropine Mesylate 0.5 mg 11/21/19 10:00 Cogentin - PO DAILY TREVA Budesonide/Formoterol Fumarate 2 puff 11/21/19 10:00 Symbicort 160/4.5mcg - IH BID TREVA Carbidopa/Levodopa 1 each 11/21/19 06:00 11/21/19 06:02 Sinemet 25/100 - PO Not Given TID TREVA Clonidine 0.1 mg 11/21/19 10:00 Catapres - PO BID TREVA Entacapone 200 mg 11/21/19 06:00 11/21/19 06:01 Comtan - PO Not Given TID TREVA Hydralazine HCl 25 mg 11/21/19 06:00 11/21/19 06:01 Apresoline - PO 25 mg TID TREVA Administration Levetiracetam 250 mg 11/21/19 10:00 Keppra - PO BID [facility] Multivit/Ca Carb/B Cmplx/FA/Prenat 1 tablet 11/21/19 10:00 Nephro-Denny - PO DAILY [facility] Non-Formulary Medication 215 mg 11/21/19 01:35 Calcium Carbonate [Antacid Calcium] PO DAILY PRN INDIGESTION Nystatin 1 applic 11/21/19 10:00 Mycostatin Cream - TP BID [facility] Phenytoin Sodium 50 mg 11/21/19 22:00 Dilantin Chewable Tablet - PO HS TREVA Phenytoin Sodium 200 mg 11/21/19 22:00 Dilantin - PO HS TREVA Pregabalin 50 mg 11/21/19 06:00 11/21/19 06:01 Lyrica - PO 50 mg TID [facility] Administration Rivaroxaban 20 mg 11/21/19 18:00 Xarelto PO DAILY@1800 [facility] Senna 1 tab 11/21/19 22:00 Senna - PO HS [facility] Sevelamer Carbonate 2,400 mg 11/21/19 08:00 Renvela - PO TIDCM [facility] Laboratory Results - last 24 hr 11/20/19 11/20/19 11/20/19 17:00 17:00 17:00 WBC 5.4 RBC 2.30 L Hgb 7.8 L Hct 23.1 L MCV 100.6 H MCH 33.8 H MCHC 33.7 RDW 15.2 Plt Count 150 D MPV 8.2 Absolute Neuts (auto) 3.4 Neutrophils % 62.9 Lymphocytes % 20.2 D Monocytes % 9.3 Eosinophils % 6.9 H Basophils % 0.7 Nucleated RBC % 0 PT with INR 10.60 INR 0.90 PTT (Actin FS) 18.7 L Sodium 138 Potassium 6.1 H* Chloride 105 Carbon Dioxide 22 Anion Gap 11 BUN 106.4 H* Creatinine 7.8 H* Est GFR (CKD-EPI)AfAm 5.88 Est GFR (CKD-EPI)NonAf 5.07 Random Glucose 88 Calcium 8.3 L Phosphorus Magnesium Total Bilirubin 0.8 AST 44 H ALT 34 Alkaline Phosphatase 142 H Total Protein 6.0 L Albumin 3.3 L Blood Type Antibody Screen 11/20/19 11/21/19 11/21/19 17:00 01:50 01:50 WBC 5.6 RBC 2.41 L Hgb 8.1 L Hct 24.4 L MCV 101.3 H MCH 33.9 H MCHC 33.4 RDW 15.6 Plt Count 144 MPV 7.8 Absolute Neuts (auto) 3.3 Neutrophils % 59.7 Lymphocytes % 24.2 Monocytes % 8.8 Eosinophils % 7.0 H Basophils % 0.3 Nucleated RBC % 0 PT with INR INR PTT (Actin FS) Sodium 141 Potassium 5.1 Chloride 107 Carbon Dioxide 21 Anion Gap 12 BUN 106.2 H* Creatinine 8.3 H* Est GFR (CKD-EPI)AfAm 5.45 Est GFR (CKD-EPI)NonAf 4.70 Random Glucose 130 H Calcium 9.1 Phosphorus Magnesium Total Bilirubin AST ALT Alkaline Phosphatase Total Protein Albumin Blood Type Cancelled Antibody Screen Cancelled 11/21/19 11/21/19 05:49 05:49 WBC RBC Hgb Hct MCV MCH MCHC RDW Plt Count MPV Absolute Neuts (auto) Neutrophils % Lymphocytes % Monocytes % Eosinophils % Basophils % Nucleated RBC % PT with INR INR PTT (Actin FS) Sodium 141 Potassium 5.1 Chloride 106 Carbon Dioxide 20 L Anion Gap 15 BUN 111.8 H* Creatinine 8.3 H* Est GFR (CKD-EPI)AfAm 5.45 Est GFR (CKD-EPI)NonAf 4.70 Random Glucose 81 Calcium 8.5 Phosphorus 7.1 H Magnesium 2.8 H Total Bilirubin AST ALT Alkaline Phosphatase Total Protein Albumin Blood Type A POSITIVE Antibody Screen Negative trach collar S1 S2 RRR Lungs decreased Left permacath+ Abd- soft, NT no edema PLAN Potassium better, hyperkalemia managed medically spoke with Renal She will have permacath changed by IR continue with meds Problem List - Problems (1) Clotted dialysis shunt Code(s): T82.868A - THROMBOSIS DUE TO VASCULAR PROSTH DEV/GRFT, INIT Qualifiers: Encounter type: initial encounter Qualified Code(s): T82.868A - Thrombosis due to vascular prosthetic devices, implants and grafts, initial encounter (2) Hyperkalemia Code(s): E87.5 - HYPERKALEMIA (3) AV fistula occlusion Code(s): T82.898A - OTH COMPLICATION OF VASCULAR PROSTH DEV/GRFT, INIT Qualifiers: Encounter type: initial encounter Qualified Code(s): T82.898A - Other specified complication of vascular prosthetic devices, implants and grafts, initial encounter (4) Anemia Code(s): D64.9 - ANEMIA, UNSPECIFIED (5) Dialysis catheter clot or failure Code(s): [id number] - (6) ESRD (end stage renal disease) on dialysis Code(s): N18.6 - END STAGE RENAL DISEASE; Z99.2 - DEPENDENCE ON RENAL DIALYSIS (7) HTN (hypertension) Code(s): I10 - ESSENTIAL (PRIMARY) HYPERTENSION
[2019-11-21] MEDS ORDERED: levETIRAcetam 500 MG TABLET (FP) PO ONE (10:07)
[2019-11-21] MEDS ORDERED: amLODIPine BESYLATE 5 MG TABLET (FP) ONE ×2 (10:07)
[2019-11-21] MEDS ORDERED: cloNIDine HCL 0.1 MG TABLET ONE (10:07)
[2019-11-21] MEDS: cloNIDine HCL 0.1 MG TABLET PO SCH ×2 (10:22→21:04)
[2019-11-21] MEDS: levETIRAcetam 250 MG TABLET PO SCH ×2 (10:23→21:04)
--- NOTE | 2019-11-21 10:30 | PN ---
Progress Note (short form) - Note Progress Note: VASCULAR SURGERY 59yo F presented for permacath malfunction, pt was unable to get fully dialyzed yesterday. Pt denies any pain or swelling around the catheter. Last Vital Signs Temp Pulse Resp BP Pulse Ox 97.1 F L 82 16 148/54 L 100 11/21/19 10:00 11/21/19 10:00 11/21/19 10:00 11/21/19 10:00 11/21/19 06:35 CBC, BMP 11/21/19 01:50 11/21/19 05:49 PE; Gen: A&O x 3 Resp: breathing comfortably through trach Chest: LT permacath in place with no erythema or discharge, Problem List - Problems (1) Clotted dialysis shunt Assessment/Plan: Plan -will plan for pt to have permacath exchanged by IR today -pt should follow up with Dr. Paz in the office in 1 week as outpatient Pt discussed with Dr. Paz who agrees with plan Code(s): T82.868A - THROMBOSIS DUE TO VASCULAR PROSTH DEV/GRFT, INIT Qualifiers: Encounter type: initial encounter Qualified Code(s): T82.868A - Thrombosis due to vascular prosthetic devices, implants and grafts, initial encounter (2) Dialysis catheter clot or failure Code(s): [id number] -
[2019-11-21] MEDS: amLODIPine BESYLATE 10 MG TABLET (FP) PO SCH (11:14)
--- NOTE | 2019-11-21 11:38 | EKG ---
Test Reason : Blood Pressure : / mmHG Vent. Rate : 073 BPM Atrial Rate : 073 BPM P-R Int : 176 ms QRS Dur : 090 ms QT Int : 410 ms P-R-T Axes : 064 077 068 degrees QTc Int : 451 ms NORMAL SINUS RHYTHM NORMAL ECG WHEN COMPARED WITH ECG OF 20-NOV-2019 13:51, NO SIGNIFICANT CHANGE WAS FOUND Confirmed by Jayme Zhong MD ([id number]) on 11/21/2019 11:37:45 AM Referred By: Confirmed By:Jayme Zhong MD
[2019-11-21] MEDS ORDERED: ACETYLCYSTEINE 20% 200MG/ML 4 ML VIAL *FOR ORAL / INH USE ONLY NEB SCH (12:00)
--- NOTE | 2019-11-21 13:30 | PN ---
Progress Note, Physician History of Present Illness: Pt seen and examined at bedside. She is awake and alert. She had her permacath changed. - Current Medication List Current Medications: Active Medications Acetylcysteine (Mucomyst 20 Oral / Inh Use Only*) 800 mg NEB RQID TREVA Albuterol Sulfate (Ventolin 0.083% Nebulizer Soln -) 1 amp NEB RQID TREVA Amlodipine Besylate (Norvasc -) 10 mg PO DAILY [facility] Last Admin: 11/21/19 11:14 Dose: 10 mg Benztropine Mesylate (Cogentin -) 0.5 mg PO DAILY [facility] Budesonide/Formoterol Fumarate (Symbicort 160/4.5mcg -) 2 puff IH BID [facility] Carbidopa/Levodopa (Sinemet 25/100 -) 1 each PO TID [facility] Last Admin: 11/21/19 06:02 Dose: Not Given Clonidine (Catapres -) 0.1 mg PO BID [facility] Last Admin: 11/21/19 10:22 Dose: 0.1 mg Entacapone (Comtan -) 200 mg PO TID [facility] Last Admin: 11/21/19 06:01 Dose: Not Given Hydralazine HCl (Apresoline -) 25 mg PO TID [facility] Last Admin: 11/21/19 06:01 Dose: 25 mg Levetiracetam (Keppra -) 250 mg PO BID [facility] Last Admin: 11/21/19 10:23 Dose: 250 mg Multivit/Ca Carb/B Cmplx/FA/Prenat (Nephro-Denny -) 1 tablet PO DAILY [facility] Non-Formulary Medication (Calcium Carbonate [Antacid Calcium]) 215 mg PO DAILY PRN PRN Reason: INDIGESTION Nystatin (Mycostatin Cream -) 1 applic TP BID [facility] Phenytoin Sodium (Dilantin Chewable Tablet -) 50 mg PO HS [facility] Phenytoin Sodium (Dilantin -) 200 mg PO HS [facility] Pregabalin (Lyrica -) 50 mg PO TID [facility] Last Admin: 11/21/19 06:01 Dose: 50 mg Rivaroxaban (Xarelto) 20 mg PO DAILY@1800 [facility] Senna (Senna -) 1 tab PO HS [facility] Sevelamer Carbonate (Renvela -) 2,400 mg PO TIDCM [facility] Last Admin: 02/05/20 09:22 Dose: 2,400 mg - Objective Vital Signs: Vital Signs Temperature 97.1 F L 11/21/19 10:00 Pulse Rate 69 11/21/19 12:45 Respiratory Rate 15 11/21/19 12:45 Blood Pressure 163/65 11/21/19 12:45 O2 Sat by Pulse Oximetry (%) 100 11/21/19 12:45 Constitutional: Yes: Calm Eyes: Yes: Conjunctiva Clear HENT: Yes: Atraumatic Neck: Yes: Other (trache) Cardiovascular: Yes: S1, S2 Gastrointestinal: Yes: Soft Musculoskeletal: Yes: WNL Edema: No Integumentary: Yes: Tattoos Neurological: Yes: Oriented Psychiatric: Yes: Oriented Labs: CBC, BMP 11/21/19 01:50 11/21/19 05:49 INR, PTT INR 0.90 (0.83-1.09) 11/20/19 17:00 Problem List - Problems (1) Clotted dialysis shunt Code(s): T82.868A - THROMBOSIS DUE TO VASCULAR PROSTH DEV/GRFT, INIT Qualifiers: Encounter type: initial encounter Qualified Code(s): T82.868A - Thrombosis due to vascular prosthetic devices, implants and grafts, initial encounter (2) Hyperkalemia Code(s): E87.5 - HYPERKALEMIA (3) ESRD (end stage renal disease) on dialysis Code(s): N18.6 - END STAGE RENAL DISEASE; Z99.2 - DEPENDENCE ON RENAL DIALYSIS Assessment/Plan Current Medications Generic Name Dose Route Start Last Admin Trade Name Freq PRN Reason Stop Dose Admin Acetylcysteine 800 mg 11/21/19 12:00 Mucomyst 20 Oral / Inh Use Only* NEB RQID TREVA Albuterol Sulfate 1 amp 11/21/19 08:00 Ventolin 0.083% Nebulizer Soln - NEB RQID TREVA Amlodipine Besylate 10 mg 11/21/19 10:00 11/21/19 11:14 Norvasc - PO 10 mg DAILY TREVA Administration Benztropine Mesylate 0.5 mg 11/21/19 10:00 Cogentin - PO DAILY TRE[facility] Budesonide/Formoterol Fumarate 2 puff 11/21/19 10:00 Symbicort 160/4.5mcg - IH BID TREVA Carbidopa/Levodopa 1 each 11/21/19 06:00 11/21/19 06:02 Sinemet 25/100 - PO Not Given TID [facility] Clonidine 0.1 mg 11/21/19 10:00 11/21/19 10:22 Catapres - PO 0.1 mg BID TREVA Administration Entacapone 200 mg 11/21/19 06:00 11/21/19 06:01 Comtan - PO Not Given TID TREVA Epoetin Raymond 10,000 unit 11/21/19 13:27 Procrit - SQ 11/21/19 13:28 ONCE ONE Hydralazine HCl 25 mg 11/21/19 06:00 11/21/19 06:01 Apresoline - PO 25 mg TID TREVA Administration Sodium Chloride 250 mls @ 3,000 mls/hr 11/21/19 13:27 Normal Saline - IV 11/22/19 13:27 PRN PRN Hypotension during Dialysis Levetiracetam 250 mg 11/21/19 10:00 11/21/19 10:23 Keppra - PO 250 mg BID [facility] Administration Multivit/Ca Carb/B Cmplx/FA/Prenat 1 tablet 11/21/19 10:00 Nephro-Denny - PO DAILY [facility] Non-Formulary Medication 215 mg 11/21/19 01:35 Calcium Carbonate [Antacid Calcium] PO DAILY PRN INDIGESTION Nystatin 1 applic 11/21/19 10:00 Mycostatin Cream - TP BID [facility] Phenytoin Sodium 50 mg 11/21/19 22:00 Dilantin Chewable Tablet - PO HS [facility] Phenytoin Sodium 200 mg 11/21/19 22:00 Dilantin - PO HS [facility] Pregabalin 50 mg 11/21/19 06:00 11/21/19 06:01 Lyrica - PO 50 mg TID [facility] Administration Rivaroxaban 20 mg 11/21/19 18:00 Xarelto PO DAILY@1800 TREVA Senna 1 tab 11/21/19 22:00 Senna - PO HS [facility] Sevelamer Carbonate 2,400 mg 11/21/19 08:00 11/21/19 09:22 Renvela - PO 2,400 mg TIDCM [facility] Administration Impression 1. ESRD 2. occluded graft 3. epilepsy 4. chronic resp failure on trache 5. HTN 6. anemia 7. clotted permacath 8. hyperkalemia Plan - HD today - epogen for anemia - repeat potassium improved this morning - citrate bath - HD AVF, 3 hrs, 450 abf, regular dialyzer, 2k standard bath, aranesp 40, venofer 50
[2019-11-21] MEDS ORDERED: SODIUM CHLORIDE 250 ML IV PRN (13:49)
[2019-11-21] MEDS ORDERED: EPOETIN ALFA-EPBX 10,000 UNIT/ML VIAL SQ ONE (14:30)
[2019-11-21] MEDS: VITAMIN B COMP W-C 1 EA TABLET PO SCH (15:43)
[2019-11-21] MEDS: BENZTROPINE MESYLATE 0.5 MG TABLET (FP) PO SCH (15:43)
[2019-11-21] MEDS: ALBUTEROL SO4 0.083% IH SOL 2.5 MG/3 ML VIAL.NEB. NEB SCH ×2 (15:44→20:35)
[2019-11-21] MEDS: NYSTATIN 100,000 UNIT/GM TOPICAL CREAM 15 GM TUBE TP SCH ×2 (15:45→21:18)
[2019-11-21] MEDS: BUDESONIDE/FORMETEROL FUMARATE 160/4.5 mcg INHALER IH SCH ×2 (15:45→21:18)
[2019-11-21] MEDS: RIVAROXABAN 20 MG TABLET PO SCH (17:31)
[2019-11-21] MEDS ORDERED: PT OWN MED DRAWER 7, Y5N ONE (21:17)
[2019-11-21] MEDS ORDERED: PHENYTOIN NA EXTENDED 100 MG CAPSULE (FP) PO SCH (22:00)
[2019-11-21] MEDS ORDERED: SENNOSIDES 8.6MG TABLET (FP) PO SCH (22:00)
[2019-11-22] MEDS: ENTACAPONE 200 MG TABLET PO SCH ×2 (05:40→13:31)
[2019-11-22] MEDS: CARBIDOPA/LEVODOPA 25/100 TABLET (FP) PO SCH ×3 (05:41→13:31)
[2019-11-22] MEDS: PREGABALIN 50 MG CAPSULE PO SCH ×3 (06:05→13:29)
[2019-11-22] MEDS: hydrALAZINE HCL 25 MG TABLET (FP) PO SCH ×2 (06:05→13:29)
[2019-11-22] MEDS: ALBUTEROL SO4 0.083% IH SOL 2.5 MG/3 ML VIAL.NEB. NEB SCH ×3 (07:30→16:11)
[2019-11-22] MEDS ORDERED: PT OWN MED DRAWER 7, Y5N ONE ×4 (08:57→13:36)
[2019-11-22] MEDS: cloNIDine HCL 0.1 MG TABLET PO SCH (09:06)
[2019-11-22] MEDS: BENZTROPINE MESYLATE 0.5 MG TABLET (FP) PO SCH (09:06)
[2019-11-22] MEDS: SEVELAMER CARBONATE 800 MG TAB (FP) PO SCH ×3 (09:06→17:10)
[2019-11-22] MEDS: levETIRAcetam 250 MG TABLET PO SCH (09:06)
[2019-11-22] MEDS: amLODIPine BESYLATE 10 MG TABLET (FP) PO SCH (09:06)
[2019-11-22] MEDS: VITAMIN B COMP W-C 1 EA TABLET PO SCH (09:06)
[2019-11-22] MEDS: NYSTATIN 100,000 UNIT/GM TOPICAL CREAM 15 GM TUBE TP SCH (09:06)
[2019-11-22 09:47] VITALS: TEMP 98.6
[2019-11-22] MEDS: BUDESONIDE/FORMETEROL FUMARATE 160/4.5 mcg INHALER IH SCH (11:42)
--- NOTE | 2019-11-22 13:30 | DS ---
Physical Examination Vital Signs: Vital Signs Temperature 98.6 F 11/22/19 09:46 Pulse Rate 81 11/22/19 09:46 Respiratory Rate 18 11/22/19 09:46 Blood Pressure 137/70 11/22/19 09:46 O2 Sat by Pulse Oximetry (%) 99 11/22/19 09:00 Constitutional: Yes: No Distress, Calm Cardiovascular: Yes: Regular Rate and Rhythm Respiratory: Yes: CTA Bilaterally Gastrointestinal: Yes: Normal Bowel Sounds, Soft. No: Tenderness Edema: No Labs: CBC, BMP 11/21/19 01:50 11/21/19 05:49 Discharge Summary Problems reviewed: Yes Reason For Visit: ARTERIOVENOUS FISTULA OCCULUSION Current Active Problems Clotted dialysis shunt (Acute) Hyperkalemia (Acute) Hospital Course: admitted for permacath occlusion-- replaced yesterday by IR -- had HD afterwards Pt better no distress Stable for dc to [facility] Condition: Stable - Instructions Referrals: Marlon Vazquez [Primary Care Provider] - Disposition: [facility] - Home Medications Comprehensive Discharge Medication List: Ambulatory Orders Amlodipine Besylate [Norvasc -] 10 mg PO DAILY tablet 06/24/18 levETIRAcetam [Keppra -] 250 mg PO BID tablet 06/24/18 Acetaminophen 650 mg PO PRN PRN 07/05/18 Mirtazapine [Remeron -] 15 mg PO HS 08/07/18 Albuterol 0.083% Nebulizer Liza [Ventolin 0.083% Nebulizer Soln -] 2.5 mg NEB RQID 08/08/18 cloNIDine HCL [Catapres -] 0.1 mg PO BID 08/08/18 clonazePAM [Klonopin -] 0.5 mg PO DAILY 08/08/18 Acetylcysteine Po/INH 20% [Mucomyst 20 Oral / INH Use Only*] 800 mg NEB RQID vial 09/25/18 Carbidopa/Levodopa 25/100 [Sinemet 25/100 -] 1 each PO TID tablet 09/25/18 Benztropine Mesylate [Cogentin -] 1 tab PO DAILY 10/22/19 Dextromethorphan HBr/Quinidine [Nuedexta 20-10 mg Capsule] 1 tab PO BID Entacapone 1 tab PO TID 10/22/19 Nystatin Cream [Mycostatin Cream -] 1 applic TD BID 10/22/19 Phenytoin 1 tab PO HS 10/22/19 Pregabalin 1 cap PO TID 10/22/19 Rivaroxaban [Xarelto] 20 mg PO DAILY 10/22/19 hydrALAZINE HCL [Apresoline -] 25 mg PO TID 10/22/19 Budesonide/Formeterol Fumarate [SYMBICORT 160/4.5mcg -] 2 puff IH BID 11/09/19 Calcium Carbonate [Antacid Calcium] 215 mg PO DAILY PRN 11/09/19 Phenytoin Na Extended [Dilantin -] 200 mg PO HS 11/09/19 Sennosides [Senna] 8.6 mg PO HS 11/09/19 Vitamin B Comp W-C [Nephro-Denny -] 0.8 mg PO DAILY 11/09/19 Sevelamer Carbonate [Renvela -] 2,400 mg PO TIDCM tab 11/12/19
[2019-11-22 14:08] VITALS: BP 138/60; PULSE 74
[2019-11-22 14:23] LABS: BLOOD UREA NITROGEN 51.2 mg/dL (7-18); CALCIUM 8.3 mg/dL (8.5-10.1); CREATININE 5.3 mg/dL (0.55-1.3); POTASSIUM 3.9 mmol/L (3.5-5.1)
--- NOTE | 2019-11-22 15:05 | PN ---
Progress Note, Physician History of Present Illness: Pt seen and examined at bedside. She is awake and alert. She is eager to go home. - Current Medication List Current Medications: Active Medications Acetylcysteine (Mucomyst 20 Oral / Inh Use Only*) 800 mg NEB RQID [facility] Last Admin: 11/21/19 15:44 Dose: Not Given Albuterol Sulfate (Ventolin 0.083% Nebulizer Soln -) 1 amp NEB RQID [facility] Last Admin: 11/22/19 11:37 Dose: Not Given Amlodipine Besylate (Norvasc -) 10 mg PO DAILY [facility] Last Admin: 11/22/19 09:06 Dose: 10 mg Benztropine Mesylate (Cogentin -) 0.5 mg PO DAILY [facility] Last Admin: 11/22/19 09:06 Dose: Not Given Budesonide/Formoterol Fumarate (Symbicort 160/4.5mcg -) 2 puff IH BID [facility] Last Admin: 11/22/19 11:42 Dose: Not Given Carbidopa/Levodopa (Sinemet 25/100 -) 1 each PO TID [facility] Last Admin: 11/22/19 13:31 Dose: Not Given Clonidine (Catapres -) 0.1 mg PO BID [facility] Last Admin: 11/22/19 09:06 Dose: 0.1 mg Entacapone (Comtan -) 200 mg PO TID [facility] Last Admin: 11/22/19 13:31 Dose: Not Given Hydralazine HCl (Apresoline -) 25 mg PO TID [facility] Last Admin: 11/22/19 13:29 Dose: 25 mg Levetiracetam (Keppra -) 250 mg PO BID [facility] Last Admin: 11/22/19 09:06 Dose: 250 mg Multivit/Ca Carb/B Cmplx/FA/Prenat (Nephro-Denny -) 1 tablet PO DAILY [facility] Last Admin: 11/22/19 09:06 Dose: 1 tablet Non-Formulary Medication (Calcium Carbonate [Antacid Calcium]) 215 mg PO DAILY PRN PRN Reason: INDIGESTION Nystatin (Mycostatin Cream -) 1 applic TP BID [facility] Last Admin: 11/22/19 09:06 Dose: Not Given Phenytoin Sodium (Dilantin Chewable Tablet -) 50 mg PO [facility] Phenytoin Sodium (Dilantin -) 200 mg PO [facility] Last Admin: 11/21/19 21:04 Dose: 200 mg Pregabalin (Lyrica -) 50 mg PO TID [facility] Last Admin: 11/22/19 13:29 Dose: 50 mg Rivaroxaban (Xarelto) 20 mg PO DAILY@1800 [facility] Last Admin: 11/21/19 17:31 Dose: 20 mg Senna (Senna -) 1 tab PO HS [facility] Last Admin: 11/21/19 21:18 Dose: 1 tab Sevelamer Carbonate (Renvela -) 2,400 mg PO TIDCM [facility] Last Admin: 11/22/19 12:00 Dose: 2,400 mg - Objective Vital Signs: Vital Signs Temperature 98.6 F 11/22/19 14:07 Pulse Rate 74 11/22/19 14:07 Respiratory Rate 18 11/22/19 14:07 Blood Pressure 138/60 11/22/19 14:07 O2 Sat by Pulse Oximetry (%) 99 11/22/19 09:00 Constitutional: Yes: Calm Eyes: Yes: Conjunctiva Clear Neck: Yes: Other (trache) Cardiovascular: Yes: S1, S2 Respiratory: Yes: CTA Bilaterally Gastrointestinal: Yes: Soft Genitourinary: Yes: Incontinence Musculoskeletal: Yes: WNL Edema: No Neurological: Yes: Oriented Psychiatric: Yes: Oriented Labs: CBC, BMP 11/21/19 01:50 11/22/19 13:20 INR, PTT INR 0.90 (0.83-1.09) 11/20/19 17:00 Problem List - Problems (1) Clotted dialysis shunt Code(s): T82.868A - THROMBOSIS DUE TO VASCULAR PROSTH DEV/GRFT, INIT Qualifiers: Encounter type: initial encounter Qualified Code(s): T82.868A - Thrombosis due to vascular prosthetic devices, implants and grafts, initial encounter (2) Hyperkalemia Code(s): E87.5 - HYPERKALEMIA (3) ESRD (end stage renal disease) on dialysis Code(s): N18.6 - END STAGE RENAL DISEASE; Z99.2 - DEPENDENCE ON RENAL DIALYSIS Assessment/Plan Current Medications Generic Name Dose Route Start Last Admin Trade Name Freq PRN Reason Stop Dose Admin Acetylcysteine 800 mg 11/21/19 12:00 11/21/19 15:44 Mucomyst 20 Oral / Inh Use Only* NEB Not Given RQID [facility] Albuterol Sulfate 1 amp 11/21/19 08:00 11/22/19 11:37 Ventolin 0.083% Nebulizer Soln - NEB Not Given RQID TREVA Amlodipine Besylate 10 mg 11/21/19 10:00 11/22/19 09:06 Norvasc - PO 10 mg DAILY TRE[facility] Administration Benztropine Mesylate 0.5 mg 11/21/19 10:00 11/22/19 09:06 Cogentin - PO Not Given DAILY [facility] Budesonide/Formoterol Fumarate 2 puff 11/21/19 10:00 11/22/19 11:42 Symbicort 160/4.5mcg - IH Not Given BID [facility] Carbidopa/Levodopa 1 each 11/21/19 06:00 11/22/19 13:31 Sinemet 25/100 - PO Not Given TID [facility] Clonidine 0.1 mg 11/21/19 10:00 11/22/19 09:06 Catapres - PO 0.1 mg BID [facility] Administration Entacapone 200 mg 11/21/19 06:00 11/22/19 13:31 Comtan - PO Not Given TID [facility] Hydralazine HCl 25 mg 11/21/19 06:00 11/22/19 13:29 Apresoline - PO 25 mg TID [facility] Administration Levetiracetam 250 mg 11/21/19 10:00 11/22/19 09:06 Keppra - PO 250 mg BID [facility] Administration Multivit/Ca Carb/B Cmplx/FA/Prenat 1 tablet 11/21/19 10:00 11/22/19 09:06 Nephro-Denny - PO 1 tablet DAILY [facility] Administration Non-Formulary Medication 215 mg 11/21/19 01:35 Calcium Carbonate [Antacid Calcium] PO DAILY PRN INDIGESTION Nystatin 1 applic 11/21/19 10:00 11/22/19 09:06 Mycostatin Cream - TP Not Given BID [facility] Phenytoin Sodium 50 mg 11/22/19 22:00 Dilantin Chewable Tablet - PO HS [facility] Phenytoin Sodium 200 mg 11/21/19 22:00 11/21/19 21:04 Dilantin - PO 200 mg HS [facility] Administration Pregabalin 50 mg 11/21/19 06:00 11/22/19 13:29 Lyrica - PO 50 mg TID TREVA Administration Rivaroxaban 20 mg 11/21/19 18:00 11/21/19 17:31 Xarelto PO 20 mg DAILY@1800 TRE[facility] Administration Senna 1 tab 11/21/19 22:00 11/21/19 21:18 Senna - PO 1 tab HS TREVA Administration Sevelamer Carbonate 2,400 mg 11/21/19 08:00 11/22/19 12:00 Renvela - PO 2,400 mg TIDCM TREVA Administration Impression 1. ESRD 2. occluded graft 3. epilepsy 4. chronic resp failure on trache 5. HTN 6. anemia 7. clotted permacath 8. hyperkalemia Plan - reviewed stat bmp - potassium improved - called hd, pt has HD set up as outpt tomorrow - can be discharged from renal standpoint - epogen for anemia - citrate bath - HD AVF, 3 hrs, 450 abf, regular dialyzer, 2k standard bath, aranesp 40, venofer 50
[2019-11-22] MEDS ORDERED: ACETYLCYSTEINE 20% 200MG/ML 4 ML VIAL *FOR ORAL / INH USE ONLY NEB SCH ×2 (16:00→16:14)
[2019-11-22] MEDS: RIVAROXABAN 20 MG TABLET PO SCH (17:10)
[2019-11-22] MEDS ORDERED: PHENYTOIN 50 MG TAB.CHEW PO SCH (22:00)
== END 2019-11-22 18:07 | DRG 314 ==
LOC: JER 12:54 → JERBED 18:48 → J4S 11-21 16:36
PROVIDERS: ADMIT Internal Medicine; ATTEND Internal Medicine
PROC: 0J2TXYZ Change Other Device in Trunk Subcutaneous Tissue and Fascia, External Approach (ICD-10-PCS; principal; 2019-11-21)
DX: T82.868A Thrombosis due to vascular prosthetic devices, implants and grafts, initial encounter (principal); N18.6 End stage renal disease; I12.0 Hypertensive chronic kidney disease with stage 5 chronic kidney disease or end stage renal disease; J96.10 Chronic respiratory failure, unspecified whether with hypoxia or hypercapnia; E87.5 Hyperkalemia; R56.9 Unspecified convulsions; Z93.0 Tracheostomy status; E78.5 Hyperlipidemia, unspecified; Z87.891 Personal history of nicotine dependence; Z88.8 Allergy status to other drugs, medicaments and biological substances
CPT/HCPCS: 36415; 36581; 71045-TC-FY; 80048; 80053; 83735; 84100; 85025; 85610; 85730; 86850; 86900; 86901; 93005; 93010; 94640; 99285-25; J0735; Q5106